=== PATIENT | female | born 1995 | race Caucasian/White ===

== ENCOUNTER 2018-07-11 09:29 | Emergency (ER) | payer BC ==
[2018-07-11] MEDS ORDERED: METOCLOPRAMIDE 5 MG/ML 2 ML VIAL IVP STA (10:02)
[2018-07-11] MEDS ORDERED: diphenhydrAMINE 50 MG/ML 1 ML VIAL IVP STA (10:02)
[2018-07-11] MEDS ORDERED: SODIUM CHLORIDE 0.9% 1,000 ML IV STA (10:02)
[2018-07-11] MEDS ORDERED: MORPHINE SULFATE 2 MG/ML SYRINGE IVP STA (10:02)
[2018-07-11 10:40] LABS: Basophils % (A) 0 %; Eosinophils # (A) 0.3 k/uL (0-0.7); Eosinophils % (A) 3 %; HCT 38.8 % (34.0-46.0); HGB 12.9 gm/dL (11.4-16.0); Lymphocytes # (A) 2.1 k/uL (1.0-4.8); Lymphocytes % (A) 20 %; MCHC 33.2 g/dL (31.0-37.0); MCV 81.3 fL (80.0-100.0); Mean Platelet Volume 6.8; Monocytes # (A) 0.6 k/uL (0-1.0); Monocytes % (A) 6 %; Neutrophils # (A) 7.2 k/uL (1.3-7.7); Neutrophils % (A) 70 %; Platelet Count 238 k/uL (150-450); RBC 4.77 m/uL (3.80-5.40); RDW 14.7 % (11.5-15.5); WBC 10.3 k/uL (3.8-10.6)
[2018-07-11 10:54] LABS: ALT 40 U/L (9-52); AST 27 U/L (14-36); Alkaline Phosphatase 67 U/L (38-126); Amylase 39 U/L (30-110); Anion Gap 8 mmol/L; Blood Urea Nitrogen 14 mg/dL (7-17); Calcium 9.6 mg/dL (8.4-10.2); Carbon Dioxide 23 mmol/L (22-30); Chloride 108 mmol/L (98-107); Glucose 86 mg/dL (74-99); Lipase 83 U/L (23-300); Potassium 4.3 mmol/L (3.5-5.1); Sodium 139 mmol/L (137-145); Total Bilirubin 0.3 mg/dL (0.2-1.3); Total Protein 6.8 g/dL (6.3-8.2)
--- NOTE | 2018-07-11 11:36 | ED ---
Abdominal Pain HPI - General Chief Complaint: Abdominal Pain Stated Complaint: 7 WEEKS PREG BACK PAIN AND SPOTTING Time Seen by Provider: 07/11/18 09:48 Source: patient Mode of arrival: wheelchair Limitations: no limitations - History of Present Illness Initial Comments: 22-year-old female patient presents the emergency department today for evaluation of lower abdominal pain and low back pain. Patient states that she has been having some discomfort to the abdomen mostly on the right side over the last week. Patient states when she woke this morning the pain was much more severe. States that she is also having light vaginal spotting. Patient reports that she is approximately 7 weeks . Last menstrual period was May 08. Patient is . Patient states she has been having a lot of nausea with this . She denies any hematuria, dysuria, urinary frequency, urinary urgency. Patient reports normal bowel movements. Patient denies any recent rash, fever, chills, shortness breath, chest pain, numbness, tingling, dizziness, weakness, headache, visual changes, or any other complaints. - Related Data Home Medications Medication Instructions Recorded Confirmed Nitrofurantoin Monohyd/M-Cryst 100 mg PO Q12HR 03/06/18 03/06/18 [Macrobid] Previous Rx's Medication Instructions Recorded Ibuprofen [Motrin] 600 mg PO Q6HR PRN #40 day 03/06/18 Ondansetron Odt [Zofran ODT] 4 mg PO Q8HR PRN #20 tab 03/06/18 Metoclopramide [Reglan] 10 mg PO Q8H PRN #10 tab 07/11/18 Allergies Allergy/AdvReac Type Severity Reaction Status Date / Time amoxicillin AdvReac Vomiting Verified 07/11/18 09:32 Review of Systems ROS Statement: Those systems with pertinent positive or pertinent negative responses have been documented in the HPI. ROS Other: All systems not noted in ROS Statement are negative. Past Medical History Additional Past Medical History / Comment(s): IBS, gastritis, hernia History of Any Multi-Drug Resistant Organisms: C-DIFF Date of last positivie culture/infection: 2016 Additional Past Surgical History / Comment(s): Ureter tube surgery Past Psychological History: Anxiety, Depression Smoking Status: Never smoker Past Alcohol Use History: None Reported, Occasional Past Drug Use History: None Reported, Marijuana General Exam Limitations: no limitations General appearance: alert, in no apparent distress, other (This is a well- developed, well-nourished adult female patient in no acute distress. Vital signs upon presentation are temperature 98.0F, pulse 57, respirations 18, blood pressure 115/62, pulse ox 98% on room air.) Eye exam: Present: normal appearance, PERRL, EOMI. Absent: scleral icterus, conjunctival injection, periorbital swelling ENT exam: Present: normal exam, normal oropharynx, mucous membranes moist Respiratory exam: Present: normal lung sounds bilaterally. Absent: respiratory distress, wheezes, rales, rhonchi, stridor Cardiovascular Exam: Present: regular rate, normal rhythm, normal heart sounds. Absent: systolic murmur, diastolic murmur, rubs, gallop, clicks GI/Abdominal exam: Present: soft, tenderness (Suprapubic tenderness), normal bowel sounds. Absent: distended, guarding, rebound, rigid Back exam: Present: normal inspection. Absent: CVA tenderness (R), CVA tenderness (L) Neurological exam: Present: alert, oriented X3, CN II-XII intact Psychiatric exam: Present: normal affect, normal mood Skin exam: Present: warm, dry, intact, normal color. Absent: rash Course Vital Signs 07/11/18 07/11/18 09:33 13:30 Temperature 98.0 F 98.0 F Pulse Rate 57 L 69 Respiratory 18 18 Rate Blood Pressure 115/62 113/65 O2 Sat by Pulse 98 99 Oximetry Medical Decision Making - Medical Decision Making 22-year-old female patient presented to the emergency department today for evaluation of lower abdominal and low back pain. Patient reported being approximately 7 weeks with her first . Patient also reported light spotting for the last week. Physical examination did reveal some suprapubic abdominal tenderness. No CVA tenderness. Ultrasound was obtained and showed a viable intrauterine gestation measuring 8 weeks 2 days with a heart rate of 168. HCG level was over 155,000. ABO/Rh was O+. On ultrasound there was evidence of possible fibroid in the fundus of the uterus. I did discuss all findings with the patient. We did discuss threatened as a possible cause for her symptoms. Patient is visiting [facility] from [place] and does have an appointment with her [employer] on 07/21/2018. She is instructed to increase fluids. She is also has been having a lot of nausea and vomiting with this so we did give her prescription for Reglan. Return parameters were discussed in detail. She verbalizes understanding and agrees with this plan. - Lab Data Result diagrams: 07/11/18 10:28 07/11/18 10:28 Lab Results 07/11/18 07/11/18 07/11/18 Range/Units 10:28 10:28 10:28 WBC 10.3 (3.8-10.6) k/uL RBC 4.77 (3.80-5.40) m/uL Hgb 12.9 (11.4-16.0) gm/dL Hct 38.8 (34.0-46.0) % MCV 81.3 (80.0-100.0) fL MCH 27.0 (25.0-35.0) pg MCHC 33.2 (31.0-37.0) g/dL RDW 14.7 (11.5-15.5) % Plt Count 238 (150-450) k/uL Neutrophils % 70 % Lymphocytes % 20 % Monocytes % 6 % Eosinophils % 3 % Basophils % 0 % Neutrophils # 7.2 (1.3-7.7) k/uL Lymphocytes # 2.1 (1.0-4.8) k/uL Monocytes # 0.6 (0-1.0) k/uL Eosinophils # 0.3 (0-0.7) k/uL Basophils # 0.0 (0-0.2) k/uL Sodium 139 (137-145) mmol/L Potassium 4.3 (3.5-5.1) mmol/L Chloride 108 H (98-107) mmol/L Carbon Dioxide 23 (22-30) mmol/L Anion Gap 8 mmol/L BUN 14 (7-17) mg/dL Creatinine 0.50 L (0.52-1.04) mg/dL Est GFR (CKD-EPI)AfAm >90 (>60 ml/min/1.73 sqM) Est GFR (CKD-EPI)NonAf >90 (>60 ml/min/1.73 sqM) Glucose 86 (74-99) mg/dL Calcium 9.6 (8.4-10.2) mg/dL Total Bilirubin 0.3 (0.2-1.3) mg/dL AST 27 (14-36) U/L ALT 40 (9-52) U/L Alkaline Phosphatase 67 (38-126) U/L Total Protein 6.8 (6.3-8.2) g/dL Albumin 4.0 (3.5-5.0) g/dL Amylase 39 (30-110) U/L Lipase 83 (23-300) U/L HCG, Quant 358620.0 mIU/mL Urine Color Urine Appearance (Clear) Urine pH (5.0-8.0) Ur Specific [place] (1.001-1.035) Urine Protein (Negative) Urine Glucose (UA) (Negative) Urine Ketones (Negative) Urine Blood (Negative) Urine Nitrite (Negative) Urine Bilirubin (Negative) Urine Urobilinogen (<2.0) mg/dL Ur Leukocyte Esterase (Negative) Blood Type O Positive Blood Type Recheck [facility] ONLY 07/11/18 Range/Units 11:52 WBC (3.8-10.6) k/uL RBC (3.80-5.40) m/uL Hgb (11.4-16.0) gm/dL Hct (34.0-46.0) % MCV (80.0-100.0) fL MCH (25.0-35.0) pg MCHC (31.0-37.0) g/dL RDW (11.5-15.5) % Plt Count (150-450) k/uL Neutrophils % % Lymphocytes % % Monocytes % % Eosinophils % % Basophils % % Neutrophils # (1.3-7.7) k/uL Lymphocytes # (1.0-4.8) k/uL Monocytes # (0-1.0) k/uL Eosinophils # (0-0.7) k/uL Basophils # (0-0.2) k/uL Sodium (137-145) mmol/L Potassium (3.5-5.1) mmol/L Chloride (98-107) mmol/L Carbon Dioxide (22-30) mmol/L Anion Gap mmol/L BUN (7-17) mg/dL Creatinine (0.52-1.04) mg/dL Est GFR (CKD-EPI)AfAm (>60 ml/min/1.73 sqM) Est GFR (CKD-EPI)NonAf (>60 ml/min/1.73 sqM) Glucose (74-99) mg/dL Calcium (8.4-10.2) mg/dL Total Bilirubin (0.2-1.3) mg/dL AST (14-36) U/L ALT (9-52) U/L Alkaline Phosphatase (38-126) U/L Total Protein (6.3-8.2) g/dL Albumin (3.5-5.0) g/dL Amylase (30-110) U/L Lipase (23-300) U/L HCG, Quant mIU/mL Urine Color Yellow Urine Appearance Clear (Clear) Urine pH 5.5 (5.0-8.0) Ur Specific [place] 1.019 (1.001-1.035) Urine Protein Negative (Negative) Urine Glucose (UA) Negative (Negative) Urine Ketones Negative (Negative) Urine Blood Negative (Negative) Urine Nitrite Negative (Negative) Urine Bilirubin Negative (Negative) Urine Urobilinogen <2.0 (<2.0) mg/dL Ur Leukocyte Esterase Negative (Negative) Blood Type Blood Type Recheck - Radiology Data Radiology results: report reviewed, image reviewed Ultrasound of the fetus was obtained. Impression by Dr. Newsome shows viable intrauterine gestation with a gestational age of 8 weeks 3 days estimated date of confinement based on this exam is 02/17/2019. The superior aspect of the uterus is heterogenous. Cannot exclude a fibroid. Heart rate was 168. Disposition Clinical Impression: Threatened miscarriage, Abdominal pain in , Uterine fibroid Disposition: HOME SELF-CARE Condition: Good Instructions: Threatened Miscarriage (ED), Nausea and Vomiting in (ED ), Uterine Fibroids (ED), Abdominal Pain in (ED) Additional Instructions: Increase fluids. Follow-up with your [employer] for recheck as soon as possible. Return to the emergency department immediately for any new, worsening, or concerning symptoms. Prescriptions: Metoclopramide [Reglan] 10 mg PO Q8H PRN #10 tab PRN Reason: Vomiting Is patient prescribed a controlled substance at d/c from ED?: No Referrals: Lydia Martin DO [Primary Care Provider] - 1-2 days Time of Disposition: 13:18
--- NOTE | 2018-07-11 11:41 | US ---
EXAMINATION TYPE: Transabdominal DATE OF EXAM: 02/24/18 COMPARISON: NONE CLINICAL HISTORY: Pain. Pelvic pain, back pain, dark brown spotting for 1 week EXAM PERFORMED: Transabdominal (TA) EXAM MEASUREMENTS: GESTATIONAL AGE / DATING Physician Established: Not yet established Dates by LMP: (9 weeks/1 days) EDC: 02/12/19 Dates by First Scan: No previous this is first scan Dates by Current Scan for: (8 weeks/3 days) EDC: 02/17/19 MATERNAL ANATOMY Uterus: 9.8 x 6.2 x 7.8cm Right Ovary: 2.6 x 1.3 x 1.2cm Left Ovary: 3.9 x 2.4 x 2.6cm Post CDS / Adnexa: appears wnl Presence of free fluid: no Presence of corpus luteal cyst: cystic areas left ovary, largest = 1.7 x 1.5 x 1.9cm GESTATION / SURVEY CRL: 1.9cm (8 weeks/3 days) Yolk Sac (normal less than 6mm): 0.3cm Heart Rate: 163 bpm Rhythm: Normal IUP: Viable IUP Date of LMP: 05/08/18 Beta HcG (if available): Not available at this time Single viable IUP 8wks/3days with MEDINA of 02/17/19. Cystic areas left ovary. Bulky, heterogeneous righ t fundus of uterus, superior to gestational sac. IMPRESSION: VIABLE UTERINE GESTATION WITH A GESTATIONAL AGE OF 8 WEEKS 3 DAYS +/- 5 DAYS. ESTIMATED DATE OF CONFI NEMENT BASED ON THIS EXAMINATION IS 02/17/2019. THE SUPERIOR ASPECT OF THE UTERUS IS HETEROGENOUS. I COULD NOT EXCLUDE A FIBROID.
[2018-07-11 12:08] LABS: Appearance,Urine Clear (Clear); Bilirubin,Urine Negative (Negative); Blood,Urine Negative (Negative); Color,Urine Yellow; Glucose,Urine (UA) Negative (Negative); Ketones,Urine Negative (Negative); Leukocyte Esterase,Urine Negative (Negative); Nitrite,Urine Negative (Negative); PH, Urine 5.5 (5.0-8.0); Protein,Urine Negative (Negative); Specific Gravity,Urine 1.019 (1.001-1.035); Urobilinogen,Urine <2.0 mg/dL (<2.0)
[2018-07-11 13:39] VITALS: BP 111/62; PULSE 68; RESP 17; TEMP 98.5
== END 2018-07-11 13:46 | disposition home or self-care (01) ==
LOC: EC 09:29
DX: O20.0 Threatened abortion (principal); O34.11 Maternal care for benign tumor of corpus uteri, first trimester; D25.9 Leiomyoma of uterus, unspecified; O99.89 Other specified diseases and conditions complicating pregnancy, childbirth and the puerperium; R11.0 Nausea; Z67.40 Type O blood, Rh positive; Z88.0 Allergy status to penicillin; Z3A.08 8 weeks gestation of pregnancy
CPT/HCPCS: 36415; 86900; 86901; 80053; 82150; 83690; 85025; 81003; 84702; 76801; 99284; 96374; 96375 ×2; 96361; J1200; J2765; J2270

== ENCOUNTER 2019-01-16 22:22 | Outpatient (CLI) | payer BC ==
[2019-01-16 23:08] VITALS: BP 117/63; PULSE 103; RESP 16; TEMP 97.2
--- NOTE | 2019-03-16 09:34 | P.MSEPDOC ---
Presenting Problems - Arrival Data Date of Arrival on Unit: 01/16/19 Time of Arrival on Unit: 22:22 Mode of Transport: Wheelchair - Complaint OB-Reason for Admission/Chief Complaint: Pain Comment: Vaginal pain that comes and goes Medical History - Information : 1 Para: 0 Term: 0 : 0 Abortions: Spontaneous or Elective: 0 Number of Living Children: 0 - Gestational Age Gestational Age by MEDINA (wks/days): 36 Weeks and 1 Days Review of Systems - Review of Systems Constitutional: No problems Breast: No problems ENT: No problems Cardiovascular: No problems Respiratory: No problems Gastrointestinal: No problems Genitourinary: No problems Musculoskeletal: No problems Neurological: No problems Skin: No problems Vital Signs - Temperature Temperature: 97.2 F Temperature Source: Temporal Artery Scan - Pulse Right Brachial Pulse Rate: 103 Pulse Assessment Method: Automatic Cuff - Respirations Respiratory Rate: 16 Oxygen Delivery Method: Room Air O2 Sat by Pulse Oximetry: 99 - Blood Pressure Right Arm Blood Pressure: 117/63 Blood Pressure Mean: 81 Blood Pressure Source: Automatic Cuff Medical Screen Scoring (Pre) - Cervical Exam Dilation: 0 cm = 0 Membranes: Intact - Uterine Contractions Frequency: N/A Duration: N/A Intensity: N/A - Maternal Vital Signs Maternal Temperature: N/A Maternal Blood Pressure: N/A Signs of Preeclampsia: N/A Maternal Respirations: N/A - Pain Assessment Pain Location and Character: Perineal Pain Scale Used: Numeric (1 - 10) Pain Intensity: 8 Pain Description: *Acute, Aching Pain Frequency: Intermittent Pain Duration Units: Minutes Pain Behavior: Vocalization Pain Aggravating Factors: None - Maternal Trauma Maternal Trauma: N/A - Assessment Baseline FHR: 135 Heart Rate - NICHD Category: Category I (Normal) = 0 NST: Reactive Position: N/A Station: N/A - Total Score Total Score (Pre): 0 - Level of Risk Level of Risk: Low (0-5) Physician Notification (Pre) - Physician Notified Physician Notified Date: 01/16/19 Physician Notified Time: 22:56 Physician/Practitioner Notifed:: Dr. Fall Spoke With: Dr. Fall New Order Received: Yes - Notification Comment Comment: Dr. Fall given report on pt in tr. Pt c/o. VS wnl. Reactive NST. vag exam of closed/thick/high. No contractions noted. Orders recieved to recheck vag exam after 1 hr, if no change to d/c pt to home and instruct to rest. Disposition - Disposition OB Disposition: Discharge to home Discharge Date: 01/17/19 Discharge Time: 23:50 I agree with the RN Medical Screening Exam: No Physician's MSE Comment: Incomplete documentation Risk & Benefit of care provided described in d/c instruction: No Diagnosis: PAIN, UNSPECIFIED
== END 2019-01-16 23:50 | disposition home or self-care (01) ==
LOC: FBPOP 22:22
PROVIDERS: ATTEND Obstetrics & Gynecology
DX: O99.89 Other specified diseases and conditions complicating pregnancy, childbirth and the puerperium (principal); R10.2 Pelvic and perineal pain; Z3A.36 36 weeks gestation of pregnancy
CPT/HCPCS: 59025; 99213

== ENCOUNTER 2019-01-27 01:38 | Outpatient (CLI) | payer BC ==
[2019-01-27 02:37] VITALS: BP 135/72; PULSE 82; RESP 18; TEMP 97
--- NOTE | 2019-02-23 09:29 | P.MSEPDOC ---
Presenting Problems - Arrival Data Date of Arrival on Unit: 01/27/19 Time of Arrival on Unit: 01:38 Mode of Transport: EMS - Complaint OB-Reason for Admission/Chief Complaint: Possible Onset of Labor Comment: onset 2200 on 01/26. contractions 3-10 min apart Medical History - Information : 1 Para: 0 Term: 0 : 0 Abortions: Spontaneous or Elective: 0 Number of Living Children: 0 - Gestational Age Gestational Age by MEDINA (wks/days): 37 Weeks and 5 Days Review of Systems - Review of Systems Constitutional: No problems Breast: No problems ENT: No problems Cardiovascular: No problems Respiratory: No problems Gastrointestinal: No problems Genitourinary: No problems Musculoskeletal: No problems Neurological: No problems Skin: No problems Vital Signs - Temperature Temperature: 97.0 F Temperature Source: Temporal Artery Scan - Pulse Right Pulse Oximetery Pulse Rate: 82 Pulse Assessment Method: Automatic Cuff - Respirations Respiratory Rate: 18 Oxygen Delivery Method: Room Air O2 Sat by Pulse Oximetry: 98 - Blood Pressure Right Arm Blood Pressure: 135/72 Blood Pressure Mean: 93 Blood Pressure Source: Automatic Cuff Medical Screen Scoring (Pre) - Cervical Exam Membranes: Intact - Uterine Contractions Frequency: > 5 minutes apart = 1 Duration: N/A Intensity: N/A - Maternal Vital Signs Maternal Temperature: N/A Maternal Blood Pressure: N/A Signs of Preeclampsia: N/A Maternal Respirations: N/A - Pain Assessment Pain Location and Character: Abdomen Pain Scale Used: Numeric (1 - 10) Pain Intensity: 9 Pain Management Goal: 2 Pain Description: *Acute, Cramping Pain Radiation Location: none Pain Frequency: Intermittent Pain Duration: 4 Pain Duration Units: Hours Pain Behavior: Vocalization Effects of Pain: none Pain Aggravating Factors: None Pharmacological Interventions: Discuss Pain Med Options Non-Pharmacological Interventions: Reduce Environmental Stimuli - Maternal Trauma Maternal Trauma: N/A - Assessment Baseline FHR: 140 Heart Rate - NICHD Category: Category I (Normal) = 0 NST: Reactive Position: N/A Station: N/A - Total Score Total Score (Pre): 1 - Level of Risk Level of Risk: Low (0-5) Medical Screen Scoring (Post) - Cervical Exam Dilation: 0 cm = 0 Membranes: Intact - Uterine Contractions Frequency: > 5 minutes apart = 1 Duration: N/A Intensity: N/A - Maternal Vital Signs Maternal Temperature: N/A Maternal Blood Pressure: N/A Signs of Preeclampsia: N/A Maternal Respirations: N/A - Maternal Trauma Maternal Trauma: N/A - Assessment Heart Rate: 140 Heart Rate - NICHD Category: Category I (Normal) = 0 NST: Reactive Position: N/A Station: N/A - Total Score Total Score (Post): 1 - Post Treatment Level of Risk Post Treatment Level of Risk: Low (0-5) Physician Notification (Post) - Physician Notified Physician Notified Date: 01/27/19 Physician Notified Time: 02:16 Physician/Practitioner Notified:: Juan David Spoke With: Juan David New Order Received: Yes - Notification Comment Comment: Inocente Wilkes spoke with Dr Fall, order to recheck cervix after 1 hour and if the same, pt may go home. Disposition - Disposition OB Disposition: Discharge to home Discharge Date: 01/27/19 Discharge Time: 02:53 I agree with the RN Medical Screening Exam: Yes Risk & Benefit of care provided described in d/c instruction: No Diagnosis: FALSE LABOR, UNSPECIFIED
== END 2019-01-27 02:53 | disposition home or self-care (01) ==
LOC: FBPOP 01:38
PROVIDERS: ATTEND Obstetrics & Gynecology
DX: O47.1 False labor at or after 37 completed weeks of gestation (principal); Z3A.37 37 weeks gestation of pregnancy
CPT/HCPCS: 59025; 99213

== ENCOUNTER 2019-02-12 11:00 | Inpatient (IN) | payer BC, OTHER ==
[2019-02-22] MEDS ORDERED: ZOLPIDEM 5 MG TAB PO PRN (17:31)
[2019-02-22] MEDS ORDERED: DINOPROSTONE 10 MG INSERT.ER VAGINAL ONE (17:31)
[2019-02-22] MEDS ORDERED: BUTORPHANOL 1 MG/ML 1 ML VIAL IV PRN ×2 (17:31→17:52)
[2019-02-22 18:40] VITALS: BMI 48.4
[2019-02-22 18:41] LABS: Basophils % (A) 0 %; Eosinophils # (A) 0.1 k/uL (0-0.7); Eosinophils % (A) 1 %; HGB 11.3 gm/dL (11.4-16.0); Lymphocytes # (A) 1.9 k/uL (1.0-4.8); Lymphocytes % (A) 17 %; MCH 24.8 pg (25.0-35.0); MCHC 32.4 g/dL (31.0-37.0); MCV 76.7 fL (80.0-100.0); Mean Platelet Volume 7.2; Microcytosis Slight; Monocytes # (A) 0.6 k/uL (0-1.0); Monocytes % (A) 5 %; Neutrophils # (A) 8.2 k/uL (1.3-7.7); Neutrophils % (A) 75 %; Platelet Count 264 k/uL (150-450); RBC 4.56 m/uL (3.80-5.40); RDW 14.7 % (11.5-15.5); WBC 10.9 k/uL (3.8-10.6)
[2019-02-23] MEDS ORDERED: ceFAZolin IN SWFI 2 GM/20 ML SYRINGE IVP ONE (09:46)
[2019-02-23] MEDS ORDERED: CITRIC ACID-SODIUM CITRATE 15 ML CUP PO ONE (09:46)
[2019-02-23] MEDS: LACTATED RINGERS 1,000 ML IV SCH ×2 (10:00→20:22)
[2019-02-23] MEDS ORDERED: ceFAZolin 3 GM in SODIUM CHLORIDE 0.9% 100 ML IVPB ONE (10:00)
[2019-02-23] MEDS ORDERED: NALBUPHINE 10 MG/ML (1 ML AMP) ONE (11:03)
[2019-02-23] MEDS ORDERED: ONDANSETRON 4 MG/2 ML VIAL ONE (11:03)
[2019-02-23] MEDS ORDERED: MORPHINE SULFATE (PF) 0.3 MG/0.3 ML SYR ONE (11:03)
[2019-02-23] MEDS ORDERED: OXYTOCIN 10 UNIT/ML 1 ML VIAL ONE (11:03)
[2019-02-23] MEDS ORDERED: diphenhydrAMINE 25 MG CAP PO PRN (11:59)
[2019-02-23] MEDS ORDERED: NALOXONE 0.4 MG/ML 1 ML VIAL IV PRN ×2 (11:59→12:01)
[2019-02-23] MEDS ORDERED: ONDANSETRON 4 MG/2 ML VIAL IVP PRN (11:59)
[2019-02-23] MEDS ORDERED: diphenhydrAMINE 50 MG CAP PO PRN (11:59)
[2019-02-23] MEDS ORDERED: ACETAMINOPHEN TAB 325 MG TAB PO PRN (11:59)
[2019-02-23] MEDS ORDERED: diphenhydrAMINE 50 MG/ML 1 ML VIAL IVP PRN ×2 (11:59)
[2019-02-23] MEDS ORDERED: METOCLOPRAMIDE 5 MG/ML 2 ML VIAL IVP PRN (11:59)
[2019-02-23] MEDS ORDERED: ZOLPIDEM 5 MG TAB PO PRN (11:59)
[2019-02-23] MEDS ORDERED: OXYTOCIN 20 UNITS/1000 ML NS 1,000 ML IV SCH (12:00)
[2019-02-23] MEDS ORDERED: NALBUPHINE 10 MG/ML (1 ML AMP) IV PRN (12:01)
[2019-02-23] MEDS ORDERED: HYDROmorphone 0.5 MG/0.5 ML SYRINGE IVP PRN (12:01)
[2019-02-23] MEDS ORDERED: KETOROLAC 30 MG/ML 1 ML VIAL IVP PRN (12:01)
--- NOTE | 2019-02-23 12:02 | P.HPOB ---
History of Present Illness H&P Date: 02/22/19 Chief Complaint: IUP @ 41 4/7 weeks This is a very pleasant 23-year-old 2 para 0010 at 41-4/7 weeks that presents to labor and delivery for induction of labor secondary to postdates. Patient denies contractions loss of fluid or vaginal bleeding. She does note good movement. Patient was seen in the office today with a normal BRYCE and nonstress test. Patient has received routine care with myself and has been uncomplicated. On bloodwork should a blood type of O+, rubella immune, hepatitis B surface antigen negative, HIV negative, RPR nonreactive, GBS negative. Review of Systems Constitutional: Denies chills, Denies fatigue, Denies fever Ears, nose, mouth and throat: Denies headache Cardiovascular: Reports leg edema Respiratory: Denies cough, Denies dyspnea Gastrointestinal: Denies constipation, Denies diarrhea, Denies nausea, Denies vomiting Genitourinary: Reports Past Medical History Additional Past Medical History / Comment(s): IBS, gastritis, hernia History of Any Multi-Drug Resistant Organisms: C-DIFF Date of last positivie culture/infection: 2016 MDRO Source:: antibotics Additional Past Surgical History / Comment(s): Ureter tube surgery Smoking Status: Never smoker - Past Family History Mother Family Medical History: Asthma, Hypertension Medications and Allergies Home Medications Medication Instructions Recorded Confirmed Type Acetaminophen Tab [Tylenol Tab] 325 mg PO Q4H 01/16/19 02/22/19 History Pnv,Calcium 72/Iron/Folic Acid 1 tab PO DAILY 01/16/19 02/22/19 History [ Plus Tablet] Allergies Allergy/AdvReac Type Severity Reaction Status Date / Time No Known Allergies Allergy Verified 01/27/19 02:06 Exam Osteopathic Statement: *. No significant issues noted on an osteopathic structural exam other than those noted in the History and Physical/Consult. Intake and Output 02/22/19 02/22/19 02/22/19 06:59 14:59 22:59 Other: Weight 127.913 kg In general this is a well-nourished well-developed female in no acute distress. She is noted to have nonlabored breathing and her heart was noted have regular rate and rhythm. Her abdomen is gravid and appropriate for gestational age. On cervical exam she is closed/thick/high. And Cervidil is placed. Patient has noted category 1 heart tones. Results Result Diagrams: 02/22/19 18:10 Assessment and Plan (1) Term Current Visit: Yes Status: Acute Code(s): Z34.80 - ENCOUNTER FOR SUPRVSN OF NORMAL , UNSP TRIMESTER SNOMED Code(s): 60606791 (2) Post-dates Current Visit: Yes Status: Acute Code(s): O48.0 - POST-TERM SNOMED Code(s): 88485743 Plan: Patient is admitted for Cervidil induction of labor. Patient is counseled on unfavorable cervix/Whiteside score and she states understanding. She states if her cervix has not changed by the morning she does elect primary for failed induction. was discussed with the patient in detail in the office will await ripening this evening and reevaluate in the morning.
--- NOTE | 2019-02-23 12:05 | P.OP ---
Date of Procedure: 02/23/19 Preoperative Diagnosis: IUP at 41-5/7 weeks, failed induction, desires elective primary Postoperative Diagnosis: Same Procedure(s) Performed: Primary low transverse section Anesthesia: spinal Surgeon: Tabatha Pimentel Appointment Manager #1: Sujey Fall Estimated Blood Loss (ml): 600 IV fluids (ml): 1,300 Urine output (ml): 300 Pathology: other (Placenta) Condition: stable Disposition: observation Indications for Procedure: Postdates with no cervical change after Cervidil, patient elects primary Operative Findings: Arcuate uterus, normal fallopian tubes, normal ovaries bilaterally Description of Procedure: The patient was prepped and draped in the usual fashion after spinal anesthesia was administered by the anesthesia department. A Pfannenstiel incision was made and extended of the abdominal cavity without difficulty. The bladder peritoneum was elevated and incised and reflected distally. A 2 cm incision was made in the transverse plane of the lower uterine segment to enter the uterus at which time clear fluid was noted. The incision was extended in both directions using the bandage scissors. The head was encountered within the field and delivered up and through the incision where the nose and mouth were thoroughly suctioned. Remainder of the infant was delivered onto the surgical field where the cord was doubly clamped, cut, and the was passed for resuscitative measures with weight and Apgars 9-10 at one and 5 minutes respectively. weight noted to be 8 lbs. 9 oz. The placenta was delivered manually, intact, and was grossly normal with a grossly normal three-vessel cord. The uterus was exteriorized and the interior cavity of the uterus swept of any remaining placental and membranous fragments with a laparotomy sponge. The margins of the incision were grasped with allis clamps and the incision closed in 2 layers. First layer was a running locking layer of 0 vicryl from margin to margin followed by a second layer of imbricating 0 vicryl from margin to margin. Any small points of bleeding were then made hemostatic with the Bovie. Once hemostasis was achieved, the posterior cul-de-sac was suctioned with a guard and the uterine and ovarian findings are as noted above. The uterus was replaced within the abdominal cavity and the gutters swept of any remaining blood fluid or clot. The incision was again reexamined and hemostasis was noted to be excellent. Any small point of bleeding were made hemostatic with the Bovie. Once hemostasis was achieved the parietal peritoneum was loosely reapproximated. The layer of muscles were examined and made hemostatic with the Bovie. Attention was then turned to the fascia which was closed with 2 running stitches of 0 Vicryl proceeding from the lateral margins to the midpoint. The subcutaneous tissues were irrigated, made hemostatic with the Bovie, and reapproximated with a running stitch of 30 Vicryl. The skin was reapproximated with 4-0 vicryl in a subarticular fashion. Estimated blood loss for the case was approximately 600 mL. All sponge instrument and needle counts are correct. There were no complications. The patient tolerated the procedure well and proceeded to the recovery room in stable condition. Both mother and are resting comfortably in recovery.
[2019-02-23] MEDS ORDERED: HYDROmorphone 1 MG/ML 1 ML SYRINGE IVP PRN (12:16)
[2019-02-23] MEDS ORDERED: IBUPROFEN IV 800 MG in SODIUM CHLORIDE 0.9% 250 ML IV ONE (13:00)
[2019-02-23] MEDS: SENNOSIDES-DOCUSATE SODIUM 1 EACH TAB PO SCH (20:22)
[2019-02-23] MEDS: IBUPROFEN 600 MG TAB PO PRN (22:08)
[2019-02-24] MEDS: IBUPROFEN 600 MG TAB PO PRN ×3 (03:44→21:48)
[2019-02-24] MEDS: LACTATED RINGERS 1,000 ML IV SCH (04:04)
[2019-02-24 08:04] LABS: Basophils % (A) 0 %; Eosinophils # (A) 0.1 k/uL (0-0.7); Eosinophils % (A) 1 %; Hypochromasia Slight; Lymphocytes # (A) 1.6 k/uL (1.0-4.8); Lymphocytes % (A) 14 %; MCH 23.9 pg (25.0-35.0); MCHC 30.9 g/dL (31.0-37.0); MCV 77.5 fL (80.0-100.0); Mean Platelet Volume 8.9; Monocytes # (A) 0.6 k/uL (0-1.0); Monocytes % (A) 5 %; Neutrophils % (A) 79 %; Platelet Count 183 k/uL (150-450); RBC 3.48 m/uL (3.80-5.40); RDW 14.6 % (11.5-15.5); WBC 11.5 k/uL (3.8-10.6)
[2019-02-24 08:11] LABS: HGB 8.3 gm/dL (11.4-16.0)
[2019-02-24] MEDS: SENNOSIDES-DOCUSATE SODIUM 1 EACH TAB PO SCH ×2 (08:19→20:03)
[2019-02-24] MEDS: PRENATAL VIT-IRON-FOLIC ACID 1 EACH CAP PO SCH (08:41)
--- NOTE | 2019-02-24 08:41 | P.PNOBGPC ---
Subjective - Subjective Principal diagnosis: Postop day 1 Interval history: Patient is complaining of pain this morning. We will start oral [place] for pain relief. Patient had Delatorre removed we are awaiting spontaneous void She is tolerating clear liquids without nausea or vomiting. Patient reports: Reports appetite normal, Reports pain poorly controlled, Reports ambulating normally [place]: doing well Objective - Vital Signs Latest vital signs: Vital Signs Temp Pulse Resp BP Pulse Ox 02/24/19 08:33 97.4 F L 70 16 121/70 02/24/19 06:00 16 02/24/19 05:00 98 02/24/19 04:00 98.1 F 87 16 129/77 98 02/24/19 02:00 16 02/24/19 01:00 97 02/24/19 00:00 98 F 100 16 103/50 02/23/19 22:00 16 02/23/19 21:00 99 02/23/19 20:00 97.6 F 87 16 104/54 99 02/23/19 17:53 18 02/23/19 17:01 96 02/23/19 16:09 97.5 F L 67 18 100/50 02/23/19 16:00 97.5 F L 67 20 100/50 02/23/19 14:13 72 20 111/55 97 02/23/19 13:43 97.4 F L 58 L 18 101/59 97 02/23/19 13:14 78 20 110/69 98 02/23/19 13:01 70 20 92/54 98 02/23/19 12:59 76 20 104/56 98 02/23/19 12:44 59 L 20 102/52 97 02/23/19 12:29 70 20 104/51 97 02/23/19 12:28 97 02/23/19 12:24 97.6 F 75 18 104/52 97 02/23/19 12:14 97.6 F 75 18 104/52 97 Intake and Output 02/23/19 02/24/19 02/24/19 22:59 06:59 14:59 Intake Total 50 100 Output Total 399 168 9282 Balance -400 -350 -1200 Intake: Oral 50 100 Output: Urine 094 693 2445 Straight 450 Uretheral (Delatorre) 450 - Exam Extremities: Present: normal, edema Abdomen: Present: normal appearance, soft Incision: Present: normal, dry, intact Uterus: Present: normal, firm - Labs Labs: Abnormal Lab Results - Last 24 Hours (Table) 02/24/19 Range/Units 07:41 WBC 11.5 H (3.8-10.6) k/uL RBC 3.48 L (3.80-5.40) m/uL Hgb 8.3 L D (11.4-16.0) gm/dL Hct 27.0 L (34.0-46.0) % MCV 77.5 L (80.0-100.0) fL MCH 23.9 L (25.0-35.0) pg MCHC 30.9 L (31.0-37.0) g/dL Neutrophils # 9.0 H (1.3-7.7) k/uL Assessment and Plan (1) Term Current Visit: Yes Status: Acute Code(s): Z34.80 - ENCOUNTER FOR SUPRVSN OF NORMAL , UNSP TRIMESTER SNOMED Code(s): 90971006 (2) Post-dates Current Visit: Yes Status: Acute Code(s): O48.0 - POST-TERM SNOMED Code(s): 81695621 (3) S/P section Current Visit: Yes Status: Acute Code(s): Z98.891 - HISTORY OF UTERINE SCAR FROM PREVIOUS SURGERY SNOMED Code(s): 219481360 Plan: We will start oral pain medications as she received Dilaudid overnight. I do believe that she will get better pain control with oral long-lasting pain medication. We will encourage ambulation this morning. Will advance diet as tolerated.
[2019-02-24] MEDS: HYDROcodone/APAP 5-325MG 1 EACH TAB PO PRN ×4 (08:44→23:51)
[2019-02-25 00:16] VITALS: RESP 16; TEMP 98.3
[2019-02-25] MEDS: LACTATED RINGERS 1,000 ML IV SCH ×4 (01:22→06:53)
[2019-02-25] MEDS: IBUPROFEN 600 MG TAB PO PRN ×2 (03:46→09:45)
[2019-02-25] MEDS: HYDROcodone/APAP 5-325MG 1 EACH TAB PO PRN ×2 (06:17→12:52)
--- NOTE | 2019-02-25 06:42 | P.PN ---
Progress Note - Text Progress Note Date: 02/24/19 Status post spinal with Duramorph Patient evaluated at the bedside without complaints of headaches pruritus or nausea or vomiting Spinal site looks clean dry and intact without any signs of infection Vitals within normal limits Patient progressing normally anesthesia signing off
[2019-02-25] MEDS: SENNOSIDES-DOCUSATE SODIUM 1 EACH TAB PO SCH (07:16)
--- NOTE | 2019-02-25 08:14 | P.DS ---
Providers Date of admission: 02/22/19 17:26 Expected date of discharge: 02/25/19 Attending physician: Tabatha Pimentel Primary care physician: Stated None - Discharge Diagnosis(es) (1) Term Current Visit: Yes Status: Acute (2) Post-dates Current Visit: Yes Status: Acute (3) S/P section Current Visit: Yes Status: Acute Hospital Course: This is a pleasant 23-year-old 2 para 0010 at 41-4/7 weeks that presented to labor and delivery for Cervidil induction secondary to postdates. Patient progressed through the evening made no cervical change and elected primary low-transverse secondary to failed induction. Patient was taken to the operating suite was performed without difficulty for further details on the please see the operative report. Viable female was delivered 8 lbs. 9 oz., Apgars of 9 and 10 at one and 5 minutes respectively. Patient's postoperative course has been essentially uneventful. She did struggle with pain control on postop day 1 but is doing well with oral medications now. Patient is ambulating and voiding without difficulty. She is tolerating a regular diet without nausea or vomiting. She does desire discharge home today. Patient Condition at Discharge: Good Plan - Discharge Summary New Discharge Prescriptions: No Action Acetaminophen Tab [Tylenol Tab] 325 mg PO Q4H Pnv,Calcium 72/Iron/Folic Acid [ Plus Tablet] 1 tab PO DAILY Discharge Medication List Acetaminophen Tab [Tylenol Tab] 325 mg PO Q4H 01/16/19 [History] Pnv,Calcium 72/Iron/Folic Acid [ Plus Tablet] 1 tab PO DAILY 01/16/19 [History] Follow up Appointment(s)/Referral(s): Tabatha Pimentel DO [Doctor of Osteopathic Medicine] - 2 Weeks Patient Instructions/Handouts: (DC), (GEN) Discharge Disposition: HOME SELF-CARE
[2019-02-25] MEDS: PRENATAL VIT-IRON-FOLIC ACID 1 EACH CAP PO SCH (09:45)
[2019-02-25 10:05] VITALS: BP 118/66; PULSE 99
== END 2019-02-25 12:56 | disposition home or self-care (01) | DRG 788 ==
LOC: 4FBP 02-22 17:26
PROVIDERS: ADMIT Obstetrics & Gynecology Obstetrics; ATTEND Obstetrics & Gynecology Obstetrics
PROC: 10907ZC Drainage of Amniotic Fluid, Therapeutic from Products of Conception, Via Natural or Artificial Opening (ICD-10-PCS; principal; 2019-02-22)
PROC: 10D00Z1 Extraction of Products of Conception, Low, Open Approach (ICD-10-PCS; principal; 2019-02-22)
PROC: 3E0P7VZ Introduction of Hormone into Female Reproductive, Via Natural or Artificial Opening (ICD-10-PCS; principal; 2019-02-22)
DX: O48.0 Post-term pregnancy (principal); Z3A.41 41 weeks gestation of pregnancy; O61.0 Failed medical induction of labor; Q51.810 Arcuate uterus; Z37.0 Single live birth; Z82.49 Family history of ischemic heart disease and other diseases of the circulatory system; Z82.5 Family history of asthma and other chronic lower respiratory diseases
CPT/HCPCS: 85025; 86850; 86900; 86901; 88307

== ENCOUNTER 2019-06-23 13:56 | Emergency (ER) | payer BC ==
[2019-06-23] MEDS ORDERED: SODIUM CHLORIDE 0.9% 1,000 ML IV STA (14:29)
[2019-06-23] MEDS ORDERED: ONDANSETRON 4 MG/2 ML VIAL IVP STA ×2 (14:29→16:00)
[2019-06-23] MEDS ORDERED: KETOROLAC 30 MG/ML 1 ML VIAL IVP STA (14:59)
[2019-06-23 15:00] LABS: Anisocytosis Slight; Basophils % (A) 0 %; Eosinophils # (A) 0.3 k/uL (0-0.7); Eosinophils % (A) 3 %; HCT 39.5 % (34.0-46.0); HGB 12.5 gm/dL (11.4-16.0); Lymphocytes # (A) 2.5 k/uL (1.0-4.8); Lymphocytes % (A) 27 %; MCH 22.3 pg (25.0-35.0); MCHC 31.6 g/dL (31.0-37.0); MCV 70.6 fL (80.0-100.0); Mean Platelet Volume 7.2; Microcytosis Marked; Monocytes # (A) 0.5 k/uL (0-1.0); Monocytes % (A) 5 %; Neutrophils # (A) 5.7 k/uL (1.3-7.7); Neutrophils % (A) 62 %; Platelet Count 257 k/uL (150-450); RDW 16.7 % (11.5-15.5); WBC 9.1 k/uL (3.8-10.6)
--- NOTE | 2019-06-23 15:03 | ED ---
Abdominal Pain HPI - General Chief Complaint: Abdominal Pain Stated Complaint: Abd Pain Time Seen by Provider: 06/23/19 14:28 Source: patient, RN notes reviewed Mode of arrival: ambulatory Limitations: no limitations - History of Present Illness Initial Comments: 23-year-old female presents emergency Department chief complaint of right-sided abdominal pain. Patient states started 3 days and has progressively worsened to the point where she cannot tolerated. Patient denies any chance . Patient does admit to a fever. Patient states she has not felt well wants PCP told her she does have a viral upper respiratory infection. Patient states the pain is not localize 7 right lower quadrant she has no dysuria hematuria denies any diarrhea constipation she does admit to some nausea and vomiting. Patient states that she has no history kidney stones no prior bowel surgeries she is 4 months . - Related Data Home Medications Medication Instructions Recorded Confirmed Acetaminophen Tab [Tylenol Tab] 1,000 mg PO Q6HR PRN 06/23/19 06/23/19 Azithromycin 250 mg PO DAILY 06/23/19 06/23/19 Previous Rx's Medication Instructions Recorded Ibuprofen [Motrin] 600 mg PO Q8HR PRN #30 tab 06/23/19 Allergies Allergy/AdvReac Type Severity Reaction Status Date / Time amoxicillin Allergy Unknown Verified 06/23/19 14:31 Review of Systems ROS Statement: Those systems with pertinent positive or pertinent negative responses have been documented in the HPI. ROS Other: All systems not noted in ROS Statement are negative. Past Medical History Additional Past Medical History / Comment(s): IBS, gastritis, hernia History of Any Multi-Drug Resistant Organisms: C-DIFF Date of last positivie culture/infection: 2016 MDRO Source:: antibotics Additional Past Surgical History / Comment(s): Ureter tube surgery Past Anesthesia/Blood Transfusion Reactions: No Reported Reaction Past Psychological History: Anxiety, Depression Smoking Status: Never smoker Past Alcohol Use History: Occasional Past Drug Use History: Marijuana - Past Family History Mother Family Medical History: Asthma, Hypertension General Exam Limitations: no limitations General appearance: alert, in no apparent distress Head exam: Present: atraumatic, normocephalic, normal inspection Eye exam: Present: normal appearance, PERRL, EOMI. Absent: scleral icterus, con junctival injection, periorbital swelling ENT exam: Present: normal exam, mucous membranes moist Neck exam: Present: normal inspection, full ROM. Absent: tenderness, meningismus, lymphadenopathy Respiratory exam: Present: normal lung sounds bilaterally. Absent: respiratory distress, wheezes, rales, rhonchi, stridor Cardiovascular Exam: Present: regular rate, normal rhythm, normal heart sounds. Absent: systolic murmur, diastolic murmur, rubs, gallop, clicks GI/Abdominal exam: Present: soft, tenderness (Moderate right-sided), normal bowel sounds. Absent: distended, guarding, rebound, rigid Back exam: Absent: CVA tenderness (R), CVA tenderness (L) Skin exam: Present: warm, dry, intact, normal color. Absent: rash Course Vital Signs 06/23/19 14:12 Temperature 97.9 F Pulse Rate 89 Respiratory 16 Rate Blood Pressure 126/77 O2 Sat by Pulse 97 Oximetry Medical Decision Making - Medical Decision Making 23-year-old female presents emergency from for right-sided abdominal discomfort. Patient lab CT urinalysis. Patient has evidence of ruptured ovarian cyst on the right along with some enteritis type changes. Patient will be discharged at this time return parameters were discussed. - Lab Data Result diagrams: 06/23/19 14:48 06/23/19 14:48 Lab Results 06/23/19 06/23/19 06/23/19 Range/Units 14:48 14:48 14:48 WBC 9.1 (3.8-10.6) k/uL RBC 5.60 H (3.80-5.40) m/uL Hgb 12.5 (11.4-16.0) gm/dL Hct 39.5 (34.0-46.0) % MCV 70.6 L (80.0-100.0) fL MCH 22.3 L (25.0-35.0) pg MCHC 31.6 (31.0-37.0) g/dL RDW 16.7 H (11.5-15.5) % Plt Count 257 (150-450) k/uL Neutrophils % 62 % Lymphocytes % 27 % Monocytes % 5 % Eosinophils % 3 % Basophils % 0 % Neutrophils # 5.7 (1.3-7.7) k/uL Lymphocytes # 2.5 (1.0-4.8) k/uL Monocytes # 0.5 (0-1.0) k/uL Eosinophils # 0.3 (0-0.7) k/uL Basophils # 0.0 (0-0.2) k/uL Anisocytosis Slight Microcytosis Marked Sodium 143 (137-145) mmol/L Potassium 3.7 (3.5-5.1) mmol/L Chloride 104 (98-107) mmol/L Carbon Dioxide 25 (22-30) mmol/L Anion Gap 14 mmol/L BUN 8 (7-17) mg/dL Creatinine 0.73 (0.52-1.04) mg/dL Est GFR (CKD-EPI)AfAm >90 (>60 ml/min/1.73 sqM) Est GFR (CKD-EPI)NonAf >90 (>60 ml/min/1.73 sqM) Glucose 85 (74-99) mg/dL Calcium 9.6 (8.4-10.2) mg/dL Total Bilirubin 0.9 (0.2-1.3) mg/dL AST 29 (14-36) U/L ALT 30 (9-52) U/L Alkaline Phosphatase 103 (38-126) U/L Total Protein 7.9 (6.3-8.2) g/dL Albumin 4.5 (3.5-5.0) g/dL Lipase 47 (23-300) U/L Urine Color Urine Appearance (Clear) Urine pH (5.0-8.0) Ur Specific [place] (1.001-1.035) Urine Protein (Negative) Urine Glucose (UA) (Negative) Urine Ketones (Negative) Urine Blood (Negative) Urine Nitrite (Negative) Urine Bilirubin (Negative) Urine Urobilinogen (<2.0) mg/dL Ur Leukocyte Esterase (Negative) Urine RBC (0-5) /hpf Urine WBC (0-5) /hpf Ur Squamous Epith Cells (0-4) /hpf Urine Bacteria (None) /hpf Urine Mucus (None) /hpf Urine HCG, Qual Not Detected (Not Detectd) 06/23/19 Range/Units 14:48 WBC (3.8-10.6) k/uL RBC (3.80-5.40) m/uL Hgb (11.4-16.0) gm/dL Hct (34.0-46.0) % MCV (80.0-100.0) fL MCH (25.0-35.0) pg MCHC (31.0-37.0) g/dL RDW (11.5-15.5) % Plt Count (150-450) k/uL Neutrophils % % Lymphocytes % % Monocytes % % Eosinophils % % Basophils % % Neutrophils # (1.3-7.7) k/uL Lymphocytes # (1.0-4.8) k/uL Monocytes # (0-1.0) k/uL Eosinophils # (0-0.7) k/uL Basophils # (0-0.2) k/uL Anisocytosis Microcytosis Sodium (137-145) mmol/L Potassium (3.5-5.1) mmol/L Chloride (98-107) mmol/L Carbon Dioxide (22-30) mmol/L Anion Gap mmol/L BUN (7-17) mg/dL Creatinine (0.52-1.04) mg/dL Est GFR (CKD-EPI)AfAm (>60 ml/min/1.73 sqM) Est GFR (CKD-EPI)NonAf (>60 ml/min/1.73 sqM) Glucose (74-99) mg/dL Calcium (8.4-10.2) mg/dL Total Bilirubin (0.2-1.3) mg/dL AST (14-36) U/L ALT (9-52) U/L Alkaline Phosphatase (38-126) U/L Total Protein (6.3-8.2) g/dL Albumin (3.5-5.0) g/dL Lipase (23-300) U/L Urine Color Yellow Urine Appearance Cloudy H (Clear) Urine pH 5.5 (5.0-8.0) Ur Specific [place] 1.028 (1.001-1.035) Urine Protein 1+ H (Negative) Urine Glucose (UA) Negative (Negative) Urine Ketones 1+ H (Negative) Urine Blood Negative (Negative) Urine Nitrite Negative (Negative) Urine Bilirubin 1+ H (Negative) Urine Urobilinogen 4.0 (<2.0) mg/dL Ur Leukocyte Esterase Moderate H (Negative) Urine RBC 2 (0-5) /hpf Urine WBC 15 H (0-5) /hpf Ur Squamous Epith Cells 29 H (0-4) /hpf Urine Bacteria Few H (None) /hpf Urine Mucus Many H (None) /hpf Urine HCG, Qual (Not Detectd) Disposition Clinical Impression: Ruptured ovarian cyst, Abdominal pain Disposition: HOME SELF-CARE Condition: Stable Instructions (If sedation given, give patient instructions): Ruptured Ovarian Cyst (ED) Additional Instructions: Please return to the Emergency Department if symptoms worsen or any other concerns. Prescriptions: Ibuprofen [Motrin] 600 mg PO Q8HR PRN #30 tab PRN Reason: Pain Is patient prescribed a controlled substance at d/c from ED?: No Referrals: Lydia Martin DO [Primary Care Provider] - 1-2 days Time of Disposition: 15:58
[2019-06-23 15:06] LABS: Appearance,Urine Cloudy (Clear); Bacteria,Urine Few /hpf; Bilirubin,Urine 1+ (Negative); Blood,Urine Negative (Negative); Color,Urine Yellow; Glucose,Urine (UA) Negative (Negative); Ketones,Urine 1+ (Negative); Leukocyte Esterase,Urine Moderate (Negative); Mucus,Urine Many /hpf; Nitrite,Urine Negative (Negative); PH, Urine 5.5 (5.0-8.0); Protein,Urine 1+ (Negative); RBC,Urine 2 /hpf (0-5); Specific Gravity,Urine 1.028 (1.001-1.035); Squamous Epithelial Cell,Urine 29 /hpf (0-4); WBC,Urine 15 /hpf (0-5)
[2019-06-23 15:08] LABS: ALT 30 U/L (9-52); AST 29 U/L (14-36); African American GFR (CKD) >90 (>60 ml/min/1.73 sqM); Albumin 4.5 g/dL (3.5-5.0); Alkaline Phosphatase 103 U/L (38-126); Anion Gap 14 mmol/L; Blood Urea Nitrogen 8 mg/dL (7-17); Calcium 9.6 mg/dL (8.4-10.2); Carbon Dioxide 25 mmol/L (22-30); Chloride 104 mmol/L (98-107); Glucose 85 mg/dL (74-99); Non-African American GFR(CKD) >90 (>60 ml/min/1.73 sqM); Potassium 3.7 mmol/L (3.5-5.1); Sodium 143 mmol/L (137-145); Total Bilirubin 0.9 mg/dL (0.2-1.3); Total Protein 7.9 g/dL (6.3-8.2)
--- NOTE | 2019-06-23 15:45 | CT ---
EXAMINATION TYPE: CT abdomen pelvis w con DATE OF EXAM: 06/23/2019 COMPARISON: 03/06/2018 HISTORY: 23-year-old female RLQ pain, nausea, vomiting TECHNIQUE: Contiguous axial scanning of the abdomen and pelvis following administration of 100 ml Iso misty 300 IV contrast. Delayed images through the kidneys and coronal/sagittal reconstructions perform ed. CT DLP: 1588.9 mGycm Automated exposure control for dose reduction was used. FINDINGS: Heart normal size without pericardial effusion. Lung bases clear without pleural effusion. Tiny hiatal hernia. Focal fat along the anterior falciform ligament. Portal venous system is patent. No biliary ductal dilatation. Gallbladder, adrenal glands, kidneys, and pancreas appear within normal limits. Spleen upper limits of normal in size at 13.6 cm measured on coronal series. No dilated small bowel, free fluid, or free air. Some prominent fluid-filled small bowel loops in the mid and lower abdomen and pelvis. Segments of a normal-appearing appendix are visualized. No significant stool burden. No pericolonic inflammatory change. Uterus is anteverted. Bladder is nondistended. Both ovaries are visualized. There is a peripherally e nhancing cystic lesion measuring 2.0 cm within the right ovary. No abnormal fluid collection in the p mitali or pelvic lymphadenopathy. Bones: No osseous destructive process. IMPRESSION: 1. PROMINENT FLUID-FILLED SMALL BOWEL LOOPS IN THE MID/LOWER ABDOMEN AND PELVIS. CORRELATE FOR ENTERI TIS. 2. A 2.0 CM RECENTLY RUPTURED FOLLICLE OR CORPUS LUTEUM WITHIN THE RIGHT OVARY. 3. SPLEEN UPPER LIMITS OF NORMAL IN SIZE AT 13.6 CM.
[2019-06-23] MEDS ORDERED: MORPHINE SULFATE 4 MG/ML SYRINGE IVP STA (16:00)
[2019-06-23] MEDS ORDERED: ACET/COD 300 MG/30 MG STARTER PACK 6 TAB BTL PO STA (16:00)
[2019-06-23 16:29] VITALS: BP 131/77; PULSE 80; RESP 18; TEMP 98
== END 2019-06-23 16:35 | disposition home or self-care (01) ==
LOC: EC 13:56
DX: N83.201 Unspecified ovarian cyst, right side (principal); Z32.02 Encounter for pregnancy test, result negative; Z88.0 Allergy status to penicillin
CPT/HCPCS: 36415; 74177; 80053; 81001; 81025; 83690; 85025; 87086; 96361; 96374; 96375; 96376; 99284

== ENCOUNTER 2020-05-24 21:27 | Emergency (ER) | payer BC, OTHER ==
[2020-05-24] MEDS ORDERED: SODIUM CHLORIDE 0.9% 1,000 ML IV STA (21:44)
[2020-05-24] MEDS ORDERED: MORPHINE SULFATE 4 MG/ML SYRINGE IV STA ×2 (21:44→23:16)
[2020-05-24] MEDS ORDERED: ONDANSETRON 4 MG/2 ML VIAL IVP STA (21:44)
[2020-05-24 22:04] LABS: Basophils % (A) 0 %; Eosinophils # (A) 0.2 k/uL (0-0.7); Eosinophils % (A) 2 %; HCT 40.9 % (34.0-46.0); HGB 13.5 gm/dL (11.4-16.0); Lymphocytes # (A) 1.7 k/uL (1.0-4.8); Lymphocytes % (A) 13 %; MCH 26.2 pg (25.0-35.0); MCV 79.6 fL (80.0-100.0); Mean Platelet Volume 7.8; Monocytes # (A) 0.3 k/uL (0-1.0); Monocytes % (A) 2 %; Neutrophils # (A) 10.3 k/uL (1.3-7.7); Neutrophils % (A) 82 %; Platelet Count 274 k/uL (150-450); RBC 5.14 m/uL (3.80-5.40); RDW 15.8 % (11.5-15.5); WBC 12.6 k/uL (3.8-10.6)
[2020-05-24] MEDS ORDERED: METOCLOPRAMIDE 5 MG/ML 2 ML VIAL IVP STA (22:25)
--- NOTE | 2020-05-24 22:28 | ED ---
General Adult HPI - General Source: patient, RN notes reviewed, old records reviewed Mode of arrival: wheelchair Limitations: no limitations <Teja Martinez - Last Filed: 05/24/20 23:17> <Les Frias - Last Filed: 05/25/20 01:59> - General Chief complaint: Nausea/Vomiting/Diarrhea Stated complaint: Vomiting, dizziness Time Seen by Provider: 05/24/20 21:35 - History of Present Illness Initial comments: 24 year old female patient with the routine cleaning right lower quadrant pain, nausea and vomiting. Patient reports that this pain began earlier today has been progressing throughout the day. Patient reports that she does have irritable bowel syndrome and she reports that she had similar symptoms on 2 p revious occasions that was secondary to ruptured right-sided ovarian cyst. She denies any other complaints at this time. Systemic: Pt denies fatigue, fever/chills, rash. Pt denies weakness, night sw eats, weight loss. Neuro: Pt denies headache, visual disturbances, syncope or pre-syncope. HEENT: Pt denies ocular discharge or irritation, otalgia, rhinorrhea, pharyngitis or notable lymphadenopathy. Cardiopulmonary: Pt denies chest pain, SOB, heart palpitations, dyspnea on exertion. : Pt denies dysuria, burning w/ urination, frequency/urgency. Denies new onset urinary or bowel incontinence. MSK: Pt denies myalgia, loss of strength or function in extremities. Neuro: Pt denies new onset weakness, paresthesias. (Teja Martinez) - Related Data Previous Rx's Medication Instructions Recorded Ondansetron Odt [Zofran ODT] 4 mg PO Q8HR PRN #10 tab 05/25/20 Allergies Allergy/AdvReac Type Severity Reaction Status Date / Time amoxicillin Allergy Unknown Verified 05/24/20 23:13 Review of Systems ROS Other: All systems not noted in ROS Statement are negative. <Teja Martinez - Last Filed: 05/24/20 23:17> ROS Other: All systems not noted in ROS Statement are negative. <Les Frias - Last Filed: 05/25/20 01:59> ROS Statement: Those systems with pertinent positive or pertinent negative responses have been documented in the HPI. Past Medical History Additional Past Medical History / Comment(s): IBS, gastritis, hernia History of Any Multi-Drug Resistant Organisms: C-DIFF Date of last positivie culture/infection: 2017 MDRO Source:: antibotics Additional Past Surgical History / Comment(s): Ureter tube surgery Past Anesthesia/Blood Transfusion Reactions: No Reported Reaction Past Psychological History: Anxiety, Depression Smoking Status: Never smoker Past Alcohol Use History: Occasional Past Drug Use History: Marijuana - Past Family History Mother Family Medical History: Asthma, Hypertension <Teja Martinez - Last Filed: 05/24/20 23:17> General Exam Limitations: no limitations <Teja Martinez - Last Filed: 05/24/20 23:17> - General Exam Comments Initial Comments: Constitutional: NAD, AOX3, Pt has pleasant affect. HEENT: NC/AT, trachea midline. Posterior pharynx non erythematous, without exudates. External ears appear normal, without discharge. Mucous membranes [facility]. There is no scleral icterus. No pallor noted. Cardiopulmonary: RRR, no murmurs, rubs or gallops, no JVD noted. Lungs CTAB in anterior and posterior mott. No peripheral edema. Abdominal exam: Abdomen soft and non-distended. Abdomen mildly tender to palpation right lower quadrant region.. Bowel sounds active in LLQ. No hepatosplenomegaly. No ecchymosis Neuro: CN II-XII grossly intact. No nuchal rigidity. No raccon eyes, no hager sign, no hemotympanum. No cervical spinal tenderness. MSK: No posterior calf tenderness bilaterally, homans sign negative bilaterally. Posterior tibialis and radial pulse +2 bilaterally. active ROM in upper and lower extremities. (Teja Martinez) Course Vital Signs 05/24/20 05/25/20 21:29 00:22 Temperature 98.3 F 98.1 F Pulse Rate 83 68 Respiratory 18 18 Rate Blood Pressure 117/81 119/63 O2 Sat by Pulse 99 97 Oximetry Medical Decision Making - Lab Data Result diagrams: 05/24/20 21:56 05/24/20 21:56 <Teja Martinez - Last Filed: 05/24/20 23:17> - Lab Data Result diagrams: 05/24/20 21:56 05/24/20 21:56 <Les Frias - Last Filed: 05/25/20 01:59> - Medical Decision Making 24 old female patient presents to ED complaining of right lower quadrant abdominal pain. Began earlier today. Patient will signs are stable, afebrile. Physical exam displayed a right lower quadrant abdominal pain. Laboratory investigations revealed mild leukocytosis mildly elevated lactic acid. Patient is signed out to Dr. Thomas pending CT. (Teja Martinez) - Lab Data Lab Results 05/24/20 05/24/20 05/24/20 Range/Units 21:56 21:56 22:16 WBC 12.6 H (3.8-10.6) k/uL RBC 5.14 (3.80-5.40) m/uL Hgb 13.5 (11.4-16.0) gm/dL Hct 40.9 (34.0-46.0) % MCV 79.6 L (80.0-100.0) fL MCH 26.2 (25.0-35.0) pg MCHC 33.0 (31.0-37.0) g/dL RDW 15.8 H (11.5-15.5) % Plt Count 274 (150-450) k/uL Neutrophils % 82 % Lymphocytes % 13 % Monocytes % 2 % Eosinophils % 2 % Basophils % 0 % Neutrophils # 10.3 H (1.3-7.7) k/uL Lymphocytes # 1.7 (1.0-4.8) k/uL Monocytes # 0.3 (0-1.0) k/uL Eosinophils # 0.2 (0-0.7) k/uL Basophils # 0.0 (0-0.2) k/uL Sodium 137 (137-145) mmol/L Potassium 4.2 (3.5-5.1) mmol/L Chloride 105 (98-107) mmol/L Carbon Dioxide 20 L (22-30) mmol/L Anion Gap 12 mmol/L BUN 11 (7-17) mg/dL Creatinine 0.84 (0.52-1.04) mg/dL Est GFR (CKD-EPI)AfAm >90 (>60 ml/min/1.73 sqM) Est GFR (CKD-EPI)NonAf >90 (>60 ml/min/1.73 sqM) Glucose 132 H (74-99) mg/dL Lactic Ac Sepsis Rflx Plasma Lactic Acid Ric 2.2 H* (0.7-2.0) mmol/L Calcium 10.0 (8.4-10.2) mg/dL Total Bilirubin 0.8 (0.2-1.3) mg/dL AST 28 (14-36) U/L ALT 18 (4-34) U/L Alkaline Phosphatase 91 (38-126) U/L Total Protein 7.9 (6.3-8.2) g/dL Albumin 4.7 (3.5-5.0) g/dL Lipase 75 (23-300) U/L Urine Color Urine Appearance (Clear) Urine pH (5.0-8.0) Ur Specific [place] (1.001-1.035) Urine Protein (Negative) Urine Glucose (UA) (Negative) Urine Ketones (Negative) Urine Blood (Negative) Urine Nitrite (Negative) Urine Bilirubin (Negative) Urine Urobilinogen (<2.0) mg/dL Ur Leukocyte Esterase (Negative) Urine RBC (0-5) /hpf Urine WBC (0-5) /hpf Ur Squamous Epith Cells (0-4) /hpf Urine Bacteria (None) /hpf Hyaline Casts (0-2) /lpf Urine Mucus (None) /hpf Urine HCG, Qual (Not Detectd) 05/24/20 05/24/20 05/24/20 Range/Units 22:39 23:12 23:12 WBC (3.8-10.6) k/uL RBC (3.80-5.40) m/uL Hgb (11.4-16.0) gm/dL Hct (34.0-46.0) % MCV (80.0-100.0) fL MCH (25.0-35.0) pg MCHC (31.0-37.0) g/dL RDW (11.5-15.5) % Plt Count (150-450) k/uL Neutrophils % % Lymphocytes % % Monocytes % % Eosinophils % % Basophils % % Neutrophils # (1.3-7.7) k/uL Lymphocytes # (1.0-4.8) k/uL Monocytes # (0-1.0) k/uL Eosinophils # (0-0.7) k/uL Basophils # (0-0.2) k/uL Sodium (137-145) mmol/L Potassium (3.5-5.1) mmol/L Chloride (98-107) mmol/L Carbon Dioxide (22-30) mmol/L Anion Gap mmol/L BUN (7-17) mg/dL Creatinine (0.52-1.04) mg/dL Est GFR (CKD-EPI)AfAm (>60 ml/min/1.73 sqM) Est GFR (CKD-EPI)NonAf (>60 ml/min/1.73 sqM) Glucose (74-99) mg/dL Lactic Ac Sepsis Rflx Y Plasma Lactic Acid Ric (0.7-2.0) mmol/L Calcium (8.4-10.2) mg/dL Total Bilirubin (0.2-1.3) mg/dL AST (14-36) U/L ALT (4-34) U/L Alkaline Phosphatase (38-126) U/L Total Protein (6.3-8.2) g/dL Albumin (3.5-5.0) g/dL Lipase (23-300) U/L Urine Color Yellow Urine Appearance Cloudy H (Clear) Urine pH 8.0 (5.0-8.0) Ur Specific [place] 1.027 (1.001-1.035) Urine Protein 1+ H (Negative) Urine Glucose (UA) Negative (Negative) Urine Ketones 4+ H (Negative) Urine Blood Negative (Negative) Urine Nitrite Negative (Negative) Urine Bilirubin Negative (Negative) Urine Urobilinogen 2.0 (<2.0) mg/dL Ur Leukocyte Esterase Negative (Negative) Urine RBC <1 (0-5) /hpf Urine WBC 1 (0-5) /hpf Ur Squamous Epith Cells 7 H (0-4) /hpf Urine Bacteria Rare H (None) /hpf Hyaline Casts 1 (0-2) /lpf Urine Mucus Many H (None) /hpf Urine HCG, Qual Not Detected (Not Detectd) 05/25/20 Range/Units 01:06 WBC (3.8-10.6) k/uL RBC (3.80-5.40) m/uL Hgb (11.4-16.0) gm/dL Hct (34.0-46.0) % MCV (80.0-100.0) fL MCH (25.0-35.0) pg MCHC (31.0-37.0) g/dL RDW (11.5-15.5) % Plt Count (150-450) k/uL Neutrophils % % Lymphocytes % % Monocytes % % Eosinophils % % Basophils % % Neutrophils # (1.3-7.7) k/uL Lymphocytes # (1.0-4.8) k/uL Monocytes # (0-1.0) k/uL Eosinophils # (0-0.7) k/uL Basophils # (0-0.2) k/uL Sodium (137-145) mmol/L Potassium (3.5-5.1) mmol/L Chloride (98-107) mmol/L Carbon Dioxide (22-30) mmol/L Anion Gap mmol/L BUN (7-17) mg/dL Creatinine (0.52-1.04) mg/dL Est GFR (CKD-EPI)AfAm (>60 ml/min/1.73 sqM) Est GFR (CKD-EPI)NonAf (>60 ml/min/1.73 sqM) Glucose (74-99) mg/dL Lactic Ac Sepsis Rflx Plasma Lactic Acid Ric 0.9 (0.7-2.0) mmol/L Calcium (8.4-10.2) mg/dL Total Bilirubin (0.2-1.3) mg/dL AST (14-36) U/L ALT (4-34) U/L Alkaline Phosphatase (38-126) U/L Total Protein (6.3-8.2) g/dL Albumin (3.5-5.0) g/dL Lipase (23-300) U/L Urine Color Urine Appearance (Clear) Urine pH (5.0-8.0) Ur Specific [place] (1.001-1.035) Urine Protein (Negative) Urine Glucose (UA) (Negative) Urine Ketones (Negative) Urine Blood (Negative) Urine Nitrite (Negative) Urine Bilirubin (Negative) Urine Urobilinogen (<2.0) mg/dL Ur Leukocyte Esterase (Negative) Urine RBC (0-5) /hpf Urine WBC (0-5) /hpf Ur Squamous Epith Cells (0-4) /hpf Urine Bacteria (None) /hpf Hyaline Casts (0-2) /lpf Urine Mucus (None) /hpf Urine HCG, Qual (Not Detectd) Disposition <Teja Martinez - Last Filed: 05/24/20 23:17> Is patient prescribed a controlled substance at d/c from ED?: No <Les Frias - Last Filed: 05/25/20 01:59> Clinical Impression: Abdominal pain Disposition: HOME SELF-CARE Condition: Good Instructions (If sedation given, give patient instructions): Abdominal Pain (ED) Prescriptions: Ondansetron Odt [Zofran ODT] 4 mg PO Q8HR PRN #10 tab PRN Reason: Nausea Referrals: Lydia Martin DO [REFERRING] - 1-2 days
[2020-05-24 22:31] LABS: ALT 18 U/L (4-34); AST 28 U/L (14-36); African American GFR (CKD) >90 (>60 ml/min/1.73 sqM); Albumin 4.7 g/dL (3.5-5.0); Alkaline Phosphatase 91 U/L (38-126); Anion Gap 12 mmol/L; Blood Urea Nitrogen 11 mg/dL (7-17); Carbon Dioxide 20 mmol/L (22-30); Chloride 105 mmol/L (98-107); Glucose 132 mg/dL (74-99); Non-African American GFR(CKD) >90 (>60 ml/min/1.73 sqM); Sodium 137 mmol/L (137-145); Total Bilirubin 0.8 mg/dL (0.2-1.3); Total Protein 7.9 g/dL (6.3-8.2)
[2020-05-24 22:33] LABS: Potassium 4.2 mmol/L (3.5-5.1)
--- NOTE | 2020-05-24 23:01 | US ---
EXAMINATION TYPE: US transvaginal DATE OF EXAM: 05/24/2020 COMPARISON: CT CLINICAL HISTORY: RLQ pain . RLQ pain x 1 day. Hx ovarian cyst. LMP unknown. . TECHNIQUE: Transvaginal (TV). Date of LMP: Unknown EXAM MEASUREMENTS: Uterus: 8.3 x 4.3 x 3.6 cm Endometrial Stripe: 1.27 cm Right Ovary: not seen Left Ovary: 3.6 x 2.5 x 1.7 cm 1. Uterus: Anteverted Hypoechoic area seen: 1.2 x 0.9 x 0.3 cm. Appears heterogeneous. 2. Endometrium: Measures 1.27 cm. 3. Right Ovary: not seen 4. Left Ovary: Anechoic area seen: 2.0 x 1.8 x 1.4 cm. Spectral, color and waveform doppler imaging shows good venous flow within the left ovary. Arterial waveform was limited possibly due to depth of ovary. Could not clearly demonstrate a strong arterial waveform. 5. Bilateral Adnexa: Minimal fluid seen adjacent to the left ovary: 0.6 x 0.7 x 0.5 cm. 6. Posterior cul-de-sac: Fluid seen. IMPRESSION: Right ovary not seen. No sign of ovarian torsion. Mild thickening of the endometrium without evidence of endometrial mass. Small cyst on the left ovary . No solid adnexal mass. Vascularity of the ovaries not well evaluated on this exam. Small amount of free fluid in the cul-de-sac is probably physiologic.
[2020-05-24 23:22] LABS: Appearance,Urine Cloudy (Clear); Bacteria,Urine Rare /hpf; Bilirubin,Urine Negative (Negative); Blood,Urine Negative (Negative); Color,Urine Yellow; Glucose,Urine (UA) Negative (Negative); Hyaline Casts,Urine 1 /lpf (0-2); Ketones,Urine 4+ (Negative); Leukocyte Esterase,Urine Negative (Negative); Mucus,Urine Many /hpf; Nitrite,Urine Negative (Negative); Protein,Urine 1+ (Negative); RBC,Urine <1 /hpf (0-5); Specific Gravity,Urine 1.027 (1.001-1.035); Squamous Epithelial Cell,Urine 7 /hpf (0-4); WBC,Urine 1 /hpf (0-5)
--- NOTE | 2020-05-24 23:54 | CT ---
EXAMINATION TYPE: CT abdomen pelvis w con DATE OF EXAM: 05/24/2020 COMPARISON: 03/06/2018 HISTORY: RLQ pain CT DLP: 1780.7 mGycm Automated exposure control for dose reduction was used. CONTRAST: Performed with IV Contrast, patient injected with 100 mL of Isovue 300. Multiple axial sections were obtained from the diaphragm to the floor the pelvis with IV contrast Iso misty 100 mL. FINDINGS: The lung bases are clear. There is no pleural effusion. Heart size is normal. There is no pericardial effusion. There is small hiatal hernia. Liver spleen pancreas gallbladder appear normal. Bile ducts are not dilated. Stomach is intact. There is no adrenal mass. Kidneys show satisfactory contrast opacification. There is no hydronephrosi s. Ureters are not dilated. Bladder distends smoothly. There is no inguinal hernia. Uterus is antever nathan. There is no free fluid in the pelvis. There is no mesenteric edema. There is no ascites or free air. There is no sign of a bowel obstructio n. Appendix is partly filled with air and appears normal. The lumbar vertebra have normal spacing and alignment. Posterior elements are intact. The bony pelvis appears intact. IMPRESSION: Negative CT scan of the abdomen and pelvis. Normal appendix. No adverse change compared to old exam.
[2020-05-25 02:10] VITALS: BP 106/58; PULSE 64; RESP 16; TEMP 98.2
== END 2020-05-25 02:11 | disposition home or self-care (01) ==
LOC: EC 21:27
DX: R10.31 Right lower quadrant pain (principal); D72.829 Elevated white blood cell count, unspecified; R74.0 Nonspecific elevation of levels of transaminase and lactic acid dehydrogenase [LDH]; Z88.0 Allergy status to penicillin
CPT/HCPCS: 99285; 96374; 96375 ×2; 96376; 96361; 36415 ×2; 80053; 83605 ×2; 83690; 85025; 81001; 81025; 87086; 93976; 76830; 74177; J2270; J2765; J2405; Q9967

== ENCOUNTER 2020-05-27 02:56 | Observation (INO) | payer OTHER ==
[2020-05-27] MEDS ORDERED: SODIUM CHLORIDE 0.9% 1,000 ML IV STA (03:07)
[2020-05-27] MEDS ORDERED: ONDANSETRON 4 MG/2 ML VIAL IVP STA (03:09)
[2020-05-27 03:22] LABS: Basophils % (A) 0 %; Eosinophils # (A) 0.3 k/uL (0-0.7); Eosinophils % (A) 2 %; HCT 41.4 % (34.0-46.0); HGB 13.6 gm/dL (11.4-16.0); Lymphocytes # (A) 3.6 k/uL (1.0-4.8); Lymphocytes % (A) 25 %; MCH 26.5 pg (25.0-35.0); MCHC 32.9 g/dL (31.0-37.0); MCV 80.6 fL (80.0-100.0); Mean Platelet Volume 7.9; Monocytes # (A) 0.6 k/uL (0-1.0); Monocytes % (A) 5 %; Neutrophils # (A) 9.5 k/uL (1.3-7.7); Neutrophils % (A) 67 %; Platelet Count 256 k/uL (150-450); RBC 5.14 m/uL (3.80-5.40); RDW 15.9 % (11.5-15.5); WBC 14.1 k/uL (3.8-10.6)
[2020-05-27 03:30] LABS: ALT 92 U/L (4-34); AST 103 U/L (14-36); African American GFR (CKD) >90 (>60 ml/min/1.73 sqM); Albumin 4.5 g/dL (3.5-5.0); Alkaline Phosphatase 84 U/L (38-126); Amylase 40 U/L (30-110); Anion Gap 12 mmol/L; Blood Urea Nitrogen 12 mg/dL (7-17); Calcium 9.6 mg/dL (8.4-10.2); Carbon Dioxide 21 mmol/L (22-30); Chloride 100 mmol/L (98-107); Glucose 114 mg/dL (74-99); Non-African American GFR(CKD) >90 (>60 ml/min/1.73 sqM); Potassium 3.5 mmol/L (3.5-5.1); Sodium 133 mmol/L (137-145); Total Bilirubin 0.6 mg/dL (0.2-1.3); Total Protein 7.3 g/dL (6.3-8.2)
[2020-05-27 03:39] LABS: Appearance,Urine Cloudy (Clear); Bilirubin,Urine Negative (Negative); Blood,Urine Negative (Negative); Color,Urine Yellow; Glucose,Urine (UA) Negative (Negative); Ketones,Urine 3+ (Negative); Leukocyte Esterase,Urine Negative (Negative); Mucus,Urine Rare /hpf; Nitrite,Urine Negative (Negative); PH, Urine 7.5 (5.0-8.0); Protein,Urine Trace (Negative); RBC,Urine 1 /hpf (0-5); Specific Gravity,Urine 1.021 (1.001-1.035); Squamous Epithelial Cell,Urine 9 /hpf (0-4); Urobilinogen,Urine <2.0 mg/dL (<2.0); WBC,Urine 3 /hpf (0-5)
[2020-05-27] MEDS ORDERED: diphenhydrAMINE 50 MG/ML 1 ML VIAL IVP STA ×2 (03:42→10:24)
[2020-05-27] MEDS ORDERED: MORPHINE SULFATE 4 MG/ML SYRINGE IVP STA ×2 (03:42→05:21)
--- NOTE | 2020-05-27 03:58 | ED ---
Abdominal Pain HPI - General Chief Complaint: Abdominal Pain Stated Complaint: Vomiting Time Seen by Provider: 05/27/20 03:06 Source: patient, EMS Mode of arrival: EMS Limitations: no limitations - History of Present Illness Initial Comments: Roxi is a 24-year-old female with a history of IBS who presents the ER today for reevaluation of right lower quadrant abdominal pain. Patient was seen and evaluated 2 days ago she had mild leukocytosis but unremarkable topical ultrasound and abdominal CT. She is subsequently discharged home. Patient reports she transiently felt better but today is having severe worsening right lower quadrant pain with associated nausea and vomiting. Patient reports she's had numerous episodes of nonbloody nonbilious emesis and continues to dry heave due to the pain. Patient reports she's had chronic abdominal pain in the past its miniature related to IBS but nothing this severe. She is a marijuana smoker but not daily has never been diagnosed with cyclic vomiting. - Related Data Previous Rx's Medication Instructions Recorded Ondansetron Odt [Zofran ODT] 4 mg PO Q8HR PRN #10 tab 05/25/20 Allergies Allergy/AdvReac Type Severity Reaction Status Date / Time amoxicillin Allergy Unknown Verified 05/24/20 23:13 Review of Systems ROS Statement: Those systems with pertinent positive or pertinent negative responses have been documented in the HPI. ROS Other: All systems not noted in ROS Statement are negative. Past Medical History Additional Past Medical History / Comment(s): IBS, gastritis, hernia History of Any Multi-Drug Resistant Organisms: C-DIFF Date of last positivie culture/infection: 2016 MDRO Source:: antibotics Additional Past Surgical History / Comment(s): Ureter tube surgery Past Anesthesia/Blood Transfusion Reactions: No Reported Reaction Past Psychological History: Anxiety, Depression Smoking Status: Never smoker Past Alcohol Use History: Occasional Past Drug Use History: Marijuana - Past Family History Mother Family Medical History: Asthma, Hypertension General Exam - General Exam Comments Initial Comments: Physical Exam GENERAL: Patient is well-developed and obese Patient is actively vomiting during exam HENT: Normocephalic, Atraumatic. EYES: PERRL, EOMI PULMONARY: Tachypnea associated with crying CARDIOVASCULAR: There is a regular rate and rhythm without any murmurs gallops or rubs. ABDOMEN: Soft, tenderness to palpation most prominent right lower quadrant SKIN: Skin is clear with no lesions or rashes and otherwise unremarkable. : Deferred NEUROLOGIC: Patient is alert and oriented x3. Moving all extremities spontaneously MUSCULOSKELETAL: Normal extremities with adequate strength and full range of motion. No lower extremity swelling or edema. No calf tenderness. PSYCHIATRIC: Normal psychiatric evaluation. Limitations: no limitations Course Vital Signs 05/27/20 03:06 Temperature 98.6 F Pulse Rate 70 Respiratory 16 Rate Blood Pressure 133/83 O2 Sat by Pulse 97 Oximetry Medical Decision Making - Medical Decision Making Patient with recurrent RLQ abdominal pain, vomiting, heaving Labs with worsening leukocytosis Pain minimally improved with Morphine/Benadryl/Zofran Due to worsening pain and WBC will repeat CT for possible appy CT with no acute findings Patient continues to heave and complain of pain in the abdomen which she rates a 10 out of 10. Patient will be admitted for intractable abdominal pain for evaluation by GI. - Lab Data Result diagrams: 05/27/20 03:08 05/27/20 03:08 Lab Results 05/27/20 05/27/20 05/27/20 Range/Units 03:08 03:08 03:08 WBC 14.1 H (3.8-10.6) k/uL RBC 5.14 (3.80-5.40) m/uL Hgb 13.6 (11.4-16.0) gm/dL Hct 41.4 (34.0-46.0) % MCV 80.6 (80.0-100.0) fL MCH 26.5 (25.0-35.0) pg MCHC 32.9 (31.0-37.0) g/dL RDW 15.9 H (11.5-15.5) % Plt Count 256 (150-450) k/uL Neutrophils % 67 % Lymphocytes % 25 % Monocytes % 5 % Eosinophils % 2 % Basophils % 0 % Neutrophils # 9.5 H (1.3-7.7) k/uL Lymphocytes # 3.6 (1.0-4.8) k/uL Monocytes # 0.6 (0-1.0) k/uL Eosinophils # 0.3 (0-0.7) k/uL Basophils # 0.0 (0-0.2) k/uL Sodium 133 L (137-145) mmol/L Potassium 3.5 (3.5-5.1) mmol/L Chloride 100 (98-107) mmol/L Carbon Dioxide 21 L (22-30) mmol/L Anion Gap 12 mmol/L BUN 12 (7-17) mg/dL Creatinine 0.81 (0.52-1.04) mg/dL Est GFR (CKD-EPI)AfAm >90 (>60 ml/min/1.73 sqM) Est GFR (CKD-EPI)NonAf >90 (>60 ml/min/1.73 sqM) Glucose 114 H (74-99) mg/dL Plasma Lactic Acid Ric 2.3 H* (0.7-2.0) mmol/L Calcium 9.6 (8.4-10.2) mg/dL Total Bilirubin 0.6 (0.2-1.3) mg/dL AST 103 H (14-36) U/L ALT 92 H (4-34) U/L Alkaline Phosphatase 84 (38-126) U/L C-Reactive Protein (<10.0) mg/L Total Protein 7.3 (6.3-8.2) g/dL Albumin 4.5 (3.5-5.0) g/dL Amylase 40 (30-110) U/L Lipase 141 (23-300) U/L Urine Color Urine Appearance (Clear) Urine pH (5.0-8.0) Ur Specific Rankin (1.001-1.035) Urine Protein (Negative) Urine Glucose (UA) (Negative) Urine Ketones (Negative) Urine Blood (Negative) Urine Nitrite (Negative) Urine Bilirubin (Negative) Urine Urobilinogen (<2.0) mg/dL Ur Leukocyte Esterase (Negative) Urine RBC (0-5) /hpf Urine WBC (0-5) /hpf Ur Squamous Epith Cells (0-4) /hpf Urine Mucus (None) /hpf 05/27/20 05/27/20 Range/Units 03:08 03:25 WBC (3.8-10.6) k/uL RBC (3.80-5.40) m/uL Hgb (11.4-16.0) gm/dL Hct (34.0-46.0) % MCV (80.0-100.0) fL MCH (25.0-35.0) pg MCHC (31.0-37.0) g/dL RDW (11.5-15.5) % Plt Count (150-450) k/uL Neutrophils % % Lymphocytes % % Monocytes % % Eosinophils % % Basophils % % Neutrophils # (1.3-7.7) k/uL Lymphocytes # (1.0-4.8) k/uL Monocytes # (0-1.0) k/uL Eosinophils # (0-0.7) k/uL Basophils # (0-0.2) k/uL Sodium (137-145) mmol/L Potassium (3.5-5.1) mmol/L Chloride (98-107) mmol/L Carbon Dioxide (22-30) mmol/L Anion Gap mmol/L BUN (7-17) mg/dL Creatinine (0.52-1.04) mg/dL Est GFR (CKD-EPI)AfAm (>60 ml/min/1.73 sqM) Est GFR (CKD-EPI)NonAf (>60 ml/min/1.73 sqM) Glucose (74-99) mg/dL Plasma Lactic Acid Ric (0.7-2.0) mmol/L Calcium (8.4-10.2) mg/dL Total Bilirubin (0.2-1.3) mg/dL AST (14-36) U/L ALT (4-34) U/L Alkaline Phosphatase (38-126) U/L C-Reactive Protein 7.9 (<10.0) mg/L Total Protein (6.3-8.2) g/dL Albumin (3.5-5.0) g/dL Amylase (30-110) U/L Lipase (23-300) U/L Urine Color Yellow Urine Appearance Cloudy H (Clear) Urine pH 7.5 (5.0-8.0) Ur Specific Rankin 1.021 (1.001-1.035) Urine Protein Trace H (Negative) Urine Glucose (UA) Negative (Negative) Urine Ketones 3+ H (Negative) Urine Blood Negative (Negative) Urine Nitrite Negative (Negative) Urine Bilirubin Negative (Negative) Urine Urobilinogen <2.0 (<2.0) mg/dL Ur Leukocyte Esterase Negative (Negative) Urine RBC 1 (0-5) /hpf Urine WBC 3 (0-5) /hpf Ur Squamous Epith Cells 9 H (0-4) /hpf Urine Mucus Rare H (None) /hpf Disposition Clinical Impression: Abdominal pain Disposition: ADMITTED IP TO THIS HOSP Condition: Stable Is patient prescribed a controlled substance at d/c from ED?: No Referrals: None,Stated [Primary Care Provider] - 1-2 days
--- NOTE | 2020-05-27 05:09 | CT ---
EXAMINATION TYPE: CT abdomen pelvis w con DATE OF EXAM: 05/27/2020 COMPARISON: 05/24/2020 HISTORY: pain Right lower quadrant pain CT DLP: 2085.6 mGycm Automated exposure control for dose reduction was used. CONTRAST: Performed with IV Contrast, patient injected with 100 mL of Isovue 300. Lung bases are clear. There is no pleural effusion. Heart size is normal. There is no pericardial eff usion. Liver spleen stomach pancreas gallbladder appear normal. Bile ducts are not dilated. There is small h iatal hernia. There is no adrenal mass. Kidneys have normal size and contour. There is satisfactory contrast opacif ication of the kidneys. There is no hydronephrosis. Delayed images show normal renal excretion. There is no retroperitoneal adenopathy. Ureters are not dilated. Bladder distends smoothly. There is no in guinal hernia. Uterus appears normal. There is 2.5 cm cyst on the left ovary. There is no evidence of thickened appendix. Appendix is not well visualized. There is no mesenteric edema. There is no ascites or free air. There is no bowel obstruction. The lum bar spine is intact. Bony pelvis appears intact. IMPRESSION: Negative CT scan abdomen and pelvis. No sign of appendicitis. There is cyst on the left ovary that ap pears slightly increased compared to recent exam.
[2020-05-27] MEDS ORDERED: PROCHLORPERAZINE SUPPOSITORY 25 MG SUPP RECTAL PRN (05:21)
[2020-05-27] MEDS ORDERED: NALOXONE 0.4 MG/ML 1 ML VIAL IV PRN (05:21)
[2020-05-27] MEDS ORDERED: ONDANSETRON 4 MG/2 ML VIAL IVP PRN (05:21)
[2020-05-27] MEDS: SODIUM CHLORIDE 0.9% 1,000 ML IV SCH ×3 (08:26→21:18)
[2020-05-27] MEDS: PANTOPRAZOLE 40 MG/10 ML VIAL IV SCH (08:26)
[2020-05-27] MEDS ORDERED: diphenhydrAMINE 50 MG/ML 1 ML VIAL ONE (10:31)
[2020-05-27] MEDS: ONDANSETRON 4 MG/2 ML VIAL IVP SCH ×3 (12:20→23:31)
[2020-05-27] MEDS: DICYCLOMINE 10 MG CAP PO SCH ×4 (12:22→23:04)
[2020-05-27] MEDS: TRIMETHOBENZAMIDE 100 MG/ML 2 ML VIAL IM PRN ×2 (12:40→18:29)
--- NOTE | 2020-05-27 14:32 | P.HPIM ---
History of Present Illness This is a pleasant 24 years old female with past medical history of irritable bowel syndrome, gastritis, C. diff infection. Depression, anxiety. Presents because of abdominal pain patient says that abdominal pain started 3 days but early this morning at 1:00 with her from sleep with severe pain. When it went to see the patient she was whirling from pain , crying. Before that she was more comfortable and however she went to have bowel movement followed by the severe pain, her pain mainly in the lower abdomen, nonradiating felt like stabbing. She has frequent vomiting also she had about 3-4 times bowel movement that's watery She denies any vaginal discharge Vital signs stable and patient is afebrile. She has elevated WBC of 14.1 K, elevated lactic acid 2.3 came back to normal at 2.0. Sodium is mildly low at 133, creatinine normal at 0.8. Liver enzymes slightly elevated CT of the abdomen and pelvis: Negative per radiologist, slightly increased left ovarian cyst Review of Systems CONSTITUTIONAL: No fever, no malaise, no fatigue. HEENT: No recent visual problems or hearing problems. Denied any sore throat. CARDIOVASCULAR: No orthopnea, PND, no palpitations, no syncope. PULMONARY: No shortness of breath, no cough, no hemoptysis. GASTROINTESTINAL: No diarrhea, no nausea, no vomiting, no abdominal pain. Normoactive bowel sounds. NEUROLOGICAL: No headaches, no weakness, no numbness. HEMATOLOGICAL: Denies any bleeding or petechiae. GENITOURINARY: Denies any burning micturition, frequency, or urgency. MUSCULOSKELETAL/RHEUMATOLOGICAL: Denies any joint pain, swelling, or any muscle pain. ENDOCRINE: Denies any polyuria or polydipsia. Past Medical History Additional Past Medical History / Comment(s): IBS, gastritis, hernia History of Any Multi-Drug Resistant Organisms: C-DIFF Date of last positivie culture/infection: 2016 MDRO Source:: antibotics Additional Past Surgical History / Comment(s): Ureter tube surgery Past Anesthesia/Blood Transfusion Reactions: No Reported Reaction Past Psychological History: Anxiety, Depression Additional Psychological History / Comment(s): previously treated with lithium Smoking Status: Never smoker Past Alcohol Use History: Occasional Past Drug Use History: Marijuana - Past Family History Mother Family Medical History: Asthma, Hypertension Medications and Allergies Home Medications Medication Instructions Recorded Confirmed Type Ondansetron Odt [Zofran ODT] 4 mg PO Q8HR PRN #10 tab 05/25/20 05/27/20 Rx Allergies Allergy/AdvReac Type Severity Reaction Status Date / Time amoxicillin Allergy Unknown Verified 05/27/20 09:44 Physical Exam Vitals: Vital Signs Temp Pulse Pulse Resp BP BP Pulse Ox 05/27/20 08:00 98.6 F 84 16 155/80 99 05/27/20 06:29 98 F 61 18 100 05/27/20 05:59 70 18 140/81 100 05/27/20 03:06 98.6 F 70 16 133/83 97 Intake and Output 05/26/20 05/27/20 05/27/20 22:59 06:59 14:59 Intake Total 600 Balance 600 Intake: Intake, IV Titration 600 Amount Sodium Chloride 0.9% 1, 600 000 ml @ 125 mls/hr IV . Q8H [facility] Rx#:[id number] Other: Weight 113.398 kg GENERAL: The patient is alert and oriented x3, not in any acute distress. Well developed, well nourished. HEENT: Pupils are round and equally reacting to light. EOMI. No scleral icterus. No conjunctival pallor. Normocephalic, atraumatic. No pharyngeal erythema. No thyromegaly. CARDIOVASCULAR: S1 and S2 present. No murmurs, rubs, or gallops. PULMONARY: Chest is clear to auscultation, no wheezing or crackles. -ABDOMEN: Soft, lower abdomen tender, nondistended, normoactive bowel sounds. No palpable organomegaly. MUSCULOSKELETAL: No joint swelling or deformity. EXTREMITIES: No cyanosis, clubbing, or pedal edema. NEUROLOGICAL: Gross neurological examination did not reveal any focal deficits. SKIN: No rashes. No petechiae Results CBC & Chem 7: 05/27/20 03:08 05/27/20 03:08 Labs: Abnormal Lab Results - Last 24 Hours (Table) 05/27/20 05/27/20 05/27/20 Range/Units 03:08 03:08 03:08 WBC 14.1 H (3.8-10.6) k/uL RDW 15.9 H (11.5-15.5) % Neutrophils # 9.5 H (1.3-7.7) k/uL Sodium 133 L (137-145) mmol/L Carbon Dioxide 21 L (22-30) mmol/L Glucose 114 H (74-99) mg/dL Plasma Lactic Acid Ric 2.3 H* (0.7-2.0) mmol/L AST 103 H (14-36) U/L ALT 92 H (4-34) U/L Urine Appearance (Clear) Urine Protein (Negative) Urine Ketones (Negative) Ur Squamous Epith Cells (0-4) /hpf Urine Mucus (None) /hpf 05/27/20 Range/Units 03:25 WBC (3.8-10.6) k/uL RDW (11.5-15.5) % Neutrophils # (1.3-7.7) k/uL Sodium (137-145) mmol/L Carbon Dioxide (22-30) mmol/L Glucose (74-99) mg/dL Plasma Lactic Acid Ric (0.7-2.0) mmol/L AST (14-36) U/L ALT (4-34) U/L Urine Appearance Cloudy H (Clear) Urine Protein Trace H (Negative) Urine Ketones 3+ H (Negative) Ur Squamous Epith Cells 9 H (0-4) /hpf Urine Mucus Rare H (None) /hpf Thrombosis Risk Factor Assmnt - Choose All That Apply Any of the Below Risk Factors Present?: No Other Risk Factors: No Other congenital or acquired thrombophilia - If yes, enter type in comment: No Thrombosis Risk Factor Assessment Level: Very Low Risk Assessment and Plan Assessment: -Abdominal pain, possible gastrointestinal irritable bowel syndrome versus gastroenteritis versus other. . GI team on the case and they recommended conservative management with Bentyl, Tigan and Zofran. Consult surgery -Mild transaminitis with elevated liver enzymes -Elevated lactic acid, came back to normal -Mild hypovolemic hyponatremia, continue with IV fluids -Left ovarian cyst, we'll call [employer] consult -Depression, anxiety, but an active issue DVT prophylaxis: Heparin GI prophylaxis Protonix
[2020-05-27] MEDS ORDERED: LEVOFLOXACIN 500MG-D5W PMX 500 MG in DEXTROSE/WATER 1 100ML.BAG IVPB SCH (15:00)
[2020-05-27] MEDS: MORPHINE SULFATE 4 MG/ML SYRINGE IVP PRN ×3 (15:06→23:02)
--- NOTE | 2020-05-27 16:19 | P.OBCN ---
History of Present Illness Consult date: 05/27/20 Requesting physician: Dustin E Leatha Reason for consult: other (Abdominal pain and the presence of a 2.5 cm left ovarian cyst) Chief complaint: Abdominal pain, nausea, diarrhea History of present illness: This is a 24-year-old 1 para 1 that presented to the hospital earlier yesterday with complaints of severe abdominal pain. Patient states she had an episode of diarrhea and immediately following noted severe abdominal pain. Patient notes her nausea has been multiple times throughout the day today in addition. Patient has a known history of IBS and she feels like she's been having a worsened flare over the last 4 months. Patient states her menstrual cycles are regular every 28-30 days lasting 5 days with a heavy flow, she is currently taking a control for contraception. Patient is status post primary for postdates, failed induction of labor with patient request for primary . was performed approximately 14 months ago. Patient states she was seen for dehydration secondary to nausea and vomiting on 05/24 ultrasound was performed and a 2 cm ovarian cyst was noted on the left. Otherwise unremarkable pelvic ultrasound. When she presented on 05/27 she had a CAT scan of the abdomen and pelvis done as she was in a significant amount of discomfort with complaints of right lower quadrant pain. CAT scan revealing a left ovarian cyst measuring 2.5 cm. Patient states she has a known history of ovarian cysts. Review of Systems Constitutional: Reports fatigue, Denies chills, Denies fever Ears, nose, mouth and throat: Denies headache Cardiovascular: Denies edema Respiratory: Denies dyspnea Gastrointestinal: Reports diarrhea, Reports heartburn, Reports nausea, Reports vomiting, Denies constipation Genitourinary: Reports as per HPI Menstruation: Reports as per HPI Past Medical History Additional Past Medical History / Comment(s): IBS, gastritis, hernia History of Any Multi-Drug Resistant Organisms: C-DIFF Year Discovered:: 2017 MDRO Source:: antibotics Additional Past Surgical History / Comment(s): Ureter tube surgery Past Anesthesia/Blood Transfusion Reactions: No Reported Reaction Past Psychological History: Anxiety, Depression Additional Psychological History / Comment(s): previously treated with lithium Smoking Status: Never smoker Past Alcohol Use History: Occasional Past Drug Use History: Marijuana - Past Family History Mother Family Medical History: Asthma, Hypertension Medications and Allergies Home Medications Medication Instructions Recorded Confirmed Type Ondansetron Odt [Zofran ODT] 4 mg PO Q8HR PRN #10 tab 05/25/20 05/27/20 Rx Allergies Allergy/AdvReac Type Severity Reaction Status Date / Time amoxicillin Allergy Unknown Verified 05/27/20 09:44 Exam Osteopathic Statement: *. No significant issues noted on an osteopathic structural exam other than those noted in the History and Physical/Consult. Vital Signs Temp Pulse Pulse Resp BP BP Pulse Ox 05/27/20 15:00 98.4 F 80 16 160/84 98 05/27/20 08:00 98.6 F 84 16 155/80 99 05/27/20 06:29 98 F 61 18 100 05/27/20 05:59 70 18 140/81 100 05/27/20 03:06 98.6 F 70 16 133/83 97 Intake and Output 05/27/20 05/27/20 05/27/20 06:59 14:59 22:59 Intake Total 600 Balance 600 Intake: Intake, IV Titration 600 Amount Sodium Chloride 0.9% 1, 600 000 ml @ 125 mls/hr IV . Q8H [facility] Rx#:[id number] Other: Weight 113.398 kg Targeted physical exam is performed in this date in general this is a well- nourished well-developed female in no acute distress. Patient is sitting up very comfortable in bed as I entered the room. Patient states she got morphine approximate 1 hour prior to my visit. Patient's breathing is noted to non labored, her heart has a regular rate and rhythm, and her abdomen is soft and nontender. Results Result Diagrams: 05/27/20 03:08 05/27/20 03:08 Abnormal Lab Results - Last 24 Hours (Table) 05/27/20 05/27/20 05/27/20 Range/Units 03:08 03:08 03:08 WBC 14.1 H (3.8-10.6) k/uL RDW 15.9 H (11.5-15.5) % Neutrophils # 9.5 H (1.3-7.7) k/uL Sodium 133 L (137-145) mmol/L Carbon Dioxide 21 L (22-30) mmol/L Glucose 114 H (74-99) mg/dL Plasma Lactic Acid Ric 2.3 H* (0.7-2.0) mmol/L AST 103 H (14-36) U/L ALT 92 H (4-34) U/L Urine Appearance (Clear) Urine Protein (Negative) Urine Ketones (Negative) Ur Squamous Epith Cells (0-4) /hpf Urine Mucus (None) /hpf 05/27/20 Range/Units 03:25 WBC (3.8-10.6) k/uL RDW (11.5-15.5) % Neutrophils # (1.3-7.7) k/uL Sodium (137-145) mmol/L Carbon Dioxide (22-30) mmol/L Glucose (74-99) mg/dL Plasma Lactic Acid Ric (0.7-2.0) mmol/L AST (14-36) U/L ALT (4-34) U/L Urine Appearance Cloudy H (Clear) Urine Protein Trace H (Negative) Urine Ketones 3+ H (Negative) Ur Squamous Epith Cells 9 H (0-4) /hpf Urine Mucus Rare H (None) /hpf Assessment and Plan (1) Ovarian cyst Current Visit: Yes Status: Acute Code(s): N83.209 - UNSPECIFIED OVARIAN CYST, UNSPECIFIED SIDE SNOMED Code(s): 48301391 (2) IBS (irritable bowel syndrome) Current Visit: Yes Status: Acute Code(s): K58.9 - IRRITABLE BOWEL SYNDROME WITHOUT DIARRHEA SNOMED Code(s): 34872147 (3) Diarrhea Current Visit: Yes Status: Acute Code(s): R19.7 - DIARRHEA, UNSPECIFIED SNOMED Code(s): 76872436 (4) Abdominal pain Current Visit: Yes Status: Acute Code(s): R10.9 - UNSPECIFIED ABDOMINAL PAIN SNOMED Code(s): 11541664 Plan: This 24-year-old 1 para 1 presented to the hospital earlier today with complaints of intractable nausea, vomiting, right lower quadrant pain. Patient states pain started after an episode of diarrhea where it was sharp in nature. Patient states she has a history of IBS and feels she has been having a flare increasing in nature for the last 4 months. Ultrasound and CAT scan her revi ewed with this patient. Ultrasound on 05/24 revealing an ovarian cyst on the left 2 cm CAT scan done today revealing left ovarian cyst 2.5 cm. I do believe these are very consistent measurements. I do not believe her discomfort is of [employer] origin. She notes significant pain after episodes of diarrhea, and her most concerning complaint to me at least is the nausea/vomiting. She feels she is unable to keep anything down. I do appreciate the consult,please let me know if I can be of any further a ssistance
[2020-05-27] MEDS: HEPARIN SODIUM,PORCINE 5,000 UNIT/ML 1 ML VIAL SQ SCH (21:17)
--- NOTE | 2020-05-27 21:47 | P.CONS ---
History of Present Illness - Reason for Consult Consult date: 05/27/20 Abdominal pain Requesting physician: Dustin E Sheet - Chief Complaint Abdominal pain - History of Present Illness 24-year-old female with a medical history significant for anxiety and depression previously treated with lithium therapy, irritable bowel syndrome, cyclical vo miting, and prior infection with Clostridium difficile who presented to the hospital with complaints of abdominal pain. She reports severe abdominal pain in the right lower quadrant described as sharp and cramping worsening in intensity for 3 days prior to presentation. She reports some loose watery bowel movements prior to presentation. She also reports multiple episodes of nausea and vomiting. Computed tomography scan of the abdomen was negative for any acute intra-abdominal process with left ovarian cyst felt to be slightly increased in size from prior exam. On questioning the patient is unclear of what medication she was used in the past for her irritable bowel syndrome. Seen in bed she is rocking back and forth and heaving with no actual vomiting seen. Laboratory evaluation significant for WBC 14.1, hemoglobin 13.9, platelet count 254,000, total bilirubin 0.6, alkaline phosphatase 84, AST 11/26/1991. Review of Systems REVIEW OF SYSTEMS: CONSTITUTIONAL: Denies any fevers, chills, weight change or fatigue. CARDIOVASCULAR: Denies any chest pain, palpitations high or low blood pressures RESPIRATORY: Denies any shortness of breath, hemoptysis or cough. GENITOURINARY: No dysuria or hematuria. MUSCULOSKELETAL: No weakness reported. SKIN: Denies any new rashes or lesions, jaundice or pallor. PSYCHIATRIC: History of anxiety and depression currently not on medical treatment. NEUROLOGY: Denies headache, denies any new focal deficits. EARS/NOSE/THROAT: No recent hearing change, congestion, nasal discharge or sore throat. EYES: No pain in eyes, discharge or change in vision. GASTROINTESTINAL: As per HPI. Past Medical History Additional Past Medical History / Comment(s): IBS, gastritis, hernia History of Any Multi-Drug Resistant Organisms: C-DIFF Year Discovered:: 2016 MDRO Source:: antibotics Additional Past Surgical History / Comment(s): Ureter tube surgery Past Anesthesia/Blood Transfusion Reactions: No Reported Reaction Past Psychological History: Anxiety, Depression Additional Psychological History / Comment(s): previously treated with lithium Smoking Status: Never smoker Past Alcohol Use History: Occasional Past Drug Use History: Marijuana - Past Family History Mother Family Medical History: Asthma, Hypertension Medications and Allergies Home Medications Medication Instructions Recorded Confirmed Type Ondansetron Odt [Zofran ODT] 4 mg PO Q8HR PRN #10 tab 05/25/20 05/27/20 Rx Allergies Allergy/AdvReac Type Severity Reaction Status Date / Time amoxicillin Allergy Unknown Verified 05/27/20 09:44 Physical Exam Vitals: Vital Signs Temp Pulse Pulse Resp BP BP Pulse Ox 05/27/20 08:00 98.6 F 84 16 155/80 99 05/27/20 06:29 98 F 61 18 100 05/27/20 05:59 70 18 140/81 100 05/27/20 03:06 98.6 F 70 16 133/83 97 Intake and Output 05/26/20 05/27/20 05/27/20 22:59 06:59 14:59 Other: Weight 113.398 kg On physical examination, patient appears comfortable in no apparent distress. HEAD: Normocephalic, atraumatic. EYES: No scleral icterus. No conjunctival injection. MOUTH: No lesions, tongue midline. NECK: Trachea midline, no gross abnormalities. CHEST: Clear to auscultation with no wheezing or rhonchi appreciated. HEART: Regular rate and rhythm. ABDOMEN: Soft, obese, mildly tender to palpation. Bowel sounds are positive. No organomegaly. No guarding or rigidity. EXTREMITIES: No pedal edema. SKIN: No rashes, no jaundice. NEUROLOGIC: Alert and oriented x3. No focal deficits. Results CBC & Chem 7: 05/27/20 03:08 05/27/20 03:08 Labs: Abnormal Lab Results - Last 24 Hours (Table) 05/27/20 05/27/20 05/27/20 Range/Units 03:08 03:08 03:08 WBC 14.1 H (3.8-10.6) k/uL RDW 15.9 H (11.5-15.5) % Neutrophils # 9.5 H (1.3-7.7) k/uL Sodium 133 L (137-145) mmol/L Carbon Dioxide 21 L (22-30) mmol/L Glucose 114 H (74-99) mg/dL Plasma Lactic Acid Ric 2.3 H* (0.7-2.0) mmol/L AST 103 H (14-36) U/L ALT 92 H (4-34) U/L Urine Appearance (Clear) Urine Protein (Negative) Urine Ketones (Negative) Ur Squamous Epith Cells (0-4) /hpf Urine Mucus (None) /hpf 05/27/20 Range/Units 03:25 WBC (3.8-10.6) k/uL RDW (11.5-15.5) % Neutrophils # (1.3-7.7) k/uL Sodium (137-145) mmol/L Carbon Dioxide (22-30) mmol/L Glucose (74-99) mg/dL Plasma Lactic Acid Ric (0.7-2.0) mmol/L AST (14-36) U/L ALT (4-34) U/L Urine Appearance Cloudy H (Clear) Urine Protein Trace H (Negative) Urine Ketones 3+ H (Negative) Ur Squamous Epith Cells 9 H (0-4) /hpf Urine Mucus Rare H (None) /hpf CT scan - abdomen: report reviewed (Computed tomography scan of the abdomen negative for any intra-abdominal process with left ovarian cyst slightly increased in size) Assessment and Plan (1) Abdominal pain Narrative/Plan: 24-year-old female with multiple medical comorbidities including prior diagnosis of irritable bowel syndrome and cyclic vomiting who presented with complaints of abdominal pain. She reports worsening right lower quadrant abdominal pain over the past 3 days. She reports some loose bowel movements in association with her abdominal pain. She reports prior episode of Clostridium difficile colitis. She reports nausea and vomiting with the episode. Computed tomography scan of the abdomen negative for any intra-abdominal process. Left ovarian cyst slightly increased in size, not felt to be related to current presentation per the [employer] OPERATOR service. Laboratory evaluation essentially negative except for mildly elevated WBC count, mild elevation in lactic acid and mild elevation of AST and ALTs. Likely related to underlying functional bowel disorder, stool studies will be ordered to rule out recurrent C. diff colitis although this would be an uncommon cause of the patient's right-sided abdominal pain, with ultrasound ordered to rule out other etiology. Current Visit: Yes Status: Acute Code(s): R10.9 - UNSPECIFIED ABDOMINAL PAIN SNOMED Code(s): 17642371 (2) Elevated liver enzymes Current Visit: Yes Status: Acute Code(s): R74.8 - ABNORMAL LEVELS OF OTHER SERUM ENZYMES SNOMED Code(s): 631774249 (3) Diarrhea Current Visit: Yes Status: Acute Code(s): R19.7 - DIARRHEA, UNSPECIFIED SNOMED Code(s): 30269625 (4) IBS (irritable bowel syndrome) Current Visit: Yes Status: Acute Code(s): K58.9 - IRRITABLE BOWEL SYNDROME WITHOUT DIARRHEA SNOMED Code(s): 91657582 Plan: Supportive care Zofran changed [id number] Tigan as needed as needed for breakthrough nausea Protonix twice a day Bentyl 4 times a day 20 mg for abdominal pain Acute viral hepatitis panel ordered due to mildly elevated liver enzymes, likely the result of fatty liver Ultrasound abdomen ordered Thank you for allowing us to participate in the care of the patient
[2020-05-28] MEDS: ONDANSETRON 4 MG/2 ML VIAL IVP SCH ×3 (05:02→17:14)
[2020-05-28] MEDS: SODIUM CHLORIDE 0.9% 1,000 ML IV SCH ×3 (05:03→20:30)
--- NOTE | 2020-05-28 08:11 | US ---
EXAMINATION TYPE: US abdomen complete DATE OF EXAM: 05/28/2020 COMPARISON: CT 05/27/2020 CLINICAL HISTORY: Abdominal pain. generalized EXAM MEASUREMENTS: Liver Length: 11.6 cm Gallbladder Wall: 0.2 cm CBD: 0.4 cm Spleen: 12.4 cm Right Kidney: 11.9 x 3.6 x 6.2 cm Left Kidney: 9.8 x 3.8 x 6.5 cm Pancreas: Tail obscured by overlying bowel gas Liver: wnl Gallbladder: No stones seen, there does appear to be layering sludge. Evidence for sonographic Longo's sign: Yes CBD: wnl Spleen: wnl Right Kidney: No hydronephrosis or masses seen Left Kidney: No hydronephrosis or masses seen Upper IVC: wnl Abd Aorta: wnl IMPRESSION: 1. No evidence of gallstones although there does appear to be extensive gallbladder sludge. No gallbl adder wall thickening or biliary dilation.
[2020-05-28 08:23] LABS: Anisocytosis Slight; Basophils % (A) 0 %; Eosinophils # (A) 0.2 k/uL (0-0.7); Eosinophils % (A) 2 %; HCT 43.3 % (34.0-46.0); HGB 13.5 gm/dL (11.4-16.0); Lymphocytes # (A) 3.9 k/uL (1.0-4.8); Lymphocytes % (A) 39 %; MCH 25.4 pg (25.0-35.0); MCHC 31.1 g/dL (31.0-37.0); MCV 81.5 fL (80.0-100.0); Monocytes # (A) 0.4 k/uL (0-1.0); Monocytes % (A) 4 %; Neutrophils # (A) 5.3 k/uL (1.3-7.7); Neutrophils % (A) 53 %; Platelet Count 181 k/uL (150-450); RBC 5.31 m/uL (3.80-5.40); RDW 16.4 % (11.5-15.5)
[2020-05-28 08:42] LABS: ALT 60 U/L (4-34); AST 35 U/L (14-36); African American GFR (CKD) >90 (>60 ml/min/1.73 sqM); Alkaline Phosphatase 71 U/L (38-126); Anion Gap 10 mmol/L; Blood Urea Nitrogen 5 mg/dL (7-17); Calcium 8.5 mg/dL (8.4-10.2); Carbon Dioxide 20 mmol/L (22-30); Chloride 109 mmol/L (98-107); Glucose 78 mg/dL (74-99); Magnesium 1.7 mg/dL (1.6-2.3); Non-African American GFR(CKD) >90 (>60 ml/min/1.73 sqM); Potassium 3.6 mmol/L (3.5-5.1); Sodium 139 mmol/L (137-145); Total Bilirubin 0.9 mg/dL (0.2-1.3); Total Protein 6.7 g/dL (6.3-8.2)
[2020-05-28] MEDS: HEPARIN SODIUM,PORCINE 5,000 UNIT/ML 1 ML VIAL SQ SCH ×2 (09:03→20:20)
[2020-05-28] MEDS: DICYCLOMINE 10 MG CAP PO SCH (09:04)
[2020-05-28] MEDS: PANTOPRAZOLE 40 MG/10 ML VIAL IV SCH (09:04)
[2020-05-28] MEDS: MORPHINE SULFATE 4 MG/ML SYRINGE IVP PRN ×2 (10:46→20:21)
--- NOTE | 2020-05-28 11:25 | P.PN ---
Subjective This is a pleasant 24 years old female with past medical history of irritable bowel syndrome, gastritis, C. diff infection. Depression, anxiety. Presents because of abdominal pain patient says that abdominal pain started 3 days but early this morning at 1:00 with her from sleep with severe pain. When it went to see the patient she was whirling from pain , crying. Before that she was more comfortable and however she went to have bowel movement followed by the severe pain, her pain mainly in the lower abdomen, nonradiating felt like stabbing. She has frequent vomiting also she had about 3-4 times bowel movement that's watery She denies any vaginal discharge Vital signs stable and patient is afebrile. She has elevated WBC of 14.1 K, e levated lactic acid 2.3 came back to normal at 2.0. Sodium is mildly low at 133, creatinine normal at 0.8. Liver enzymes slightly elevated CT of the abdomen and pelvis: Negative per radiologist, slightly increased left ovarian cyst 05/28/2020 Patient pain is easing down however she still have lower suprapubic abdominal pain especially with the dictation. She has no upper abdominal pain or RUQ tenderness, although ultrasound of the gallbladder was done showing sludge I think this is an incidental finding and is unrelated. Her symptoms mostly related to irritable bowel syndrome. We called HA[employer]ARDOUS SUBSTANCES SCIENTIST consult yesterday since patient has worsening left ovarian cyst but she thinks it is unrelated to her pain. She is currently on Bentyl 20 mg 4 times a day, increased the dose to 40 mg. And GI team on the case as well. Objective - Vital Signs Vital signs: Vital Signs Temp 97.2 F L 05/28/20 08:00 Pulse 57 L 05/28/20 08:00 Resp 11 L 05/28/20 08:00 BP 106/55 05/28/20 08:00 Pulse Ox 98 05/28/20 08:00 Intake & Output 05/27/20 05/28/20 05/28/20 18:59 06:59 18:59 Intake Total 600 600 Balance 600 600 Intake: Intake, IV Titration 600 Amount Sodium Chloride 0.9% 1, 600 000 ml @ 125 mls/hr IV . Q8H [facility] Rx#:[id number] Oral 600 Other: Voiding Method Toilet # Voids 1 - Exam GENERAL: The patient is alert and oriented x3, not in any acute distress. Well developed, well nourished. HEENT: Pupils are round and equally reacting to light. EOMI. No scleral icterus. No conjunctival pallor. Normocephalic, atraumatic. No pharyngeal erythema. No thyromegaly. CARDIOVASCULAR: S1 and S2 present. No murmurs, rubs, or gallops. PULMONARY: Chest is clear to auscultation, no wheezing or crackles. -ABDOMEN: Soft, lower abdomen tender, nondistended, normoactive bowel sounds. No palpable organomegaly. MUSCULOSKELETAL: No joint swelling or deformity. EXTREMITIES: No cyanosis, clubbing, or pedal edema. NEUROLOGICAL: Gross neurological examination did not reveal any focal deficits. SKIN: No rashes. No petechiae - Labs CBC & Chem 7: 05/28/20 07:55 05/28/20 07:55 Labs: Abnormal Lab Results - Last 24 Hours (Table) 05/28/20 05/28/20 Range/Units 07:55 07:55 RDW 16.4 H (11.5-15.5) % Chloride 109 H (98-107) mmol/L Carbon Dioxide 20 L (22-30) mmol/L BUN 5 L (7-17) mg/dL ALT 60 H (4-34) U/L Assessment and Plan Assessment: -Irritable bowel syndrome still has abdominal pain, Bentyl was increased. GI team on the case and they recommended conservative management with Bentyl, Tigan and Zofran. Consult surgery -Mild transaminitis with elevated liver enzymes, improving and almost back to normal -Elevated lactic acid, came back to normal -Mild hypovolemic hyponatremia, continue with IV fluids -Left ovarian cyst, HAZARD[employer] SUBSTANCES SCIENTIST consult evaluated the patient and recommended no intervention for now -Depression, anxiety, but an active issue DVT prophylaxis: Heparin GI prophylaxis Protonix
[2020-05-28] MEDS: DICYCLOMINE 20 MG TAB PO SCH ×3 (12:52→20:20)
--- NOTE | 2020-05-28 16:16 | P.PN ---
Subjective Progress Note Date: 05/28/20 Principal diagnosis: Abdominal pain, history of irritable bowel syndrome Patient is seen lying in bed today. Reports less nausea and vomiting and improved abdominal pain although still present. Objective - Vital Signs Vital signs: Vital Signs Temp 98 F 05/27/20 23:00 Pulse 60 05/28/20 00:00 Resp 17 05/28/20 00:00 BP 106/51 05/27/20 23:00 Pulse Ox 95 05/27/20 23:00 Intake & Output 05/27/20 05/28/20 05/28/20 18:59 06:59 18:59 Intake Total 600 600 Balance 600 600 Intake: Intake, IV Titration 600 Amount Sodium Chloride 0.9% 1, 600 000 ml @ 125 mls/hr IV . Q8H [facility] Rx#:[id number] Oral 600 Other: Voiding Method Toilet # Voids 1 - Exam On physical examination, patient appears comfortable in no apparent distress. HEAD: Normocephalic, atraumatic. EYES: No scleral icterus. No conjunctival injection. MOUTH: No lesions, tongue midline. NECK: Trachea midline, no gross abnormalities. ABDOMEN: Soft, obese. Bowel sounds are positive, mildly tender to palpation. No organomegaly. No guarding or rigidity. EXTREMITIES: No pedal edema. SKIN: No rashes, no jaundice. NEUROLOGIC: Alert and oriented x3. No focal deficits. - Labs CBC & Chem 7: 05/28/20 07:55 05/28/20 07:55 Labs: Abnormal Lab Results - Last 24 Hours (Table) 05/28/20 05/28/20 Range/Units 07:55 07:55 RDW 16.4 H (11.5-15.5) % Chloride 109 H (98-107) mmol/L Carbon Dioxide 20 L (22-30) mmol/L BUN 5 L (7-17) mg/dL ALT 60 H (4-34) U/L Assessment and Plan (1) Abdominal pain Narrative/Plan: 24-year-old female with multiple medical comorbidities including prior diagnosis of irritable bowel syndrome and cyclic vomiting who presented with complaints of abdominal pain. She reports worsening right lower quadrant abdominal pain over the past 3 days. She reports some loose bowel movements in association with her abdominal pain. She reports prior episode of Clostridium difficile colitis. She reports nausea and vomiting with the episode. Computed tomography scan of the abdomen negative for any intra-abdominal process. Left ovarian cyst sl ightly increased in size, not felt to be related to current presentation per the [facility] service. Laboratory evaluation essentially negative except for mildly elevated WBC count, mild elevation in lactic acid and mild elevation of AST and ALTs. Likely related to underlying functional bowel disorder, stool studies will be ordered to rule out recurrent C. diff colitis although this would be an uncommon cause of the patient's right-sided abdominal pain, with ultrasound ordered to rule out other etiology. Current Visit: Yes Status: Acute Code(s): R10.9 - UNSPECIFIED ABDOMINAL PAIN SNOMED Code(s): 00484661 (2) Elevated liver enzymes Current Visit: Yes Status: Acute Code(s): R74.8 - ABNORMAL LEVELS OF OTHER SERUM ENZYMES SNOMED Code(s): 169012471 (3) Diarrhea Current Visit: Yes Status: Acute Code(s): R19.7 - DIARRHEA, UNSPECIFIED SNOMED Code(s): 09363075 (4) IBS (irritable bowel syndrome) Current Visit: Yes Status: Acute Code(s): K58.9 - IRRITABLE BOWEL SYNDROME WITHOUT DIARRHEA SNOMED Code(s): 92699276 Plan: Supportive care Zofran changed [id number] Tigan as needed as needed for breakthrough nausea Protonix twice a day Bentyl 4 times a day 20 mg for abdominal pain Acute viral hepatitis panel ordered due to mildly elevated liver enzymes, likely the result of fatty liver Ultrasound abdomen showed biliary sludge with no choledocholithiasis or other abnormalities Thank you for allowing us to participate in the care of the patient
[2020-05-28] MEDS: TRIMETHOBENZAMIDE 100 MG/ML 2 ML VIAL IM PRN (20:21)
[2020-05-29] MEDS: ONDANSETRON 4 MG/2 ML VIAL IVP SCH ×3 (00:03→11:05)
[2020-05-29] MEDS: MORPHINE SULFATE 4 MG/ML SYRINGE IVP PRN ×3 (01:13→12:12)
[2020-05-29] MEDS: SODIUM CHLORIDE 0.9% 1,000 ML IV SCH ×2 (05:01→11:06)
[2020-05-29 06:40] LABS: Basophils % (A) 0 %; Eosinophils # (A) 0.3 k/uL (0-0.7); Eosinophils % (A) 3 %; HCT 39.5 % (34.0-46.0); Lymphocytes # (A) 3.6 k/uL (1.0-4.8); Lymphocytes % (A) 41 %; MCHC 32.8 g/dL (31.0-37.0); MCV 82.2 fL (80.0-100.0); Mean Platelet Volume 7.7; Monocytes # (A) 0.4 k/uL (0-1.0); Monocytes % (A) 4 %; Neutrophils # (A) 4.6 k/uL (1.3-7.7); Neutrophils % (A) 51 %; Platelet Count 189 k/uL (150-450); RDW 15.8 % (11.5-15.5); WBC 8.9 k/uL (3.8-10.6)
[2020-05-29 06:55] LABS: ALT 47 U/L (4-34); AST 23 U/L (14-36); African American GFR (CKD) >90 (>60 ml/min/1.73 sqM); Albumin 3.6 g/dL (3.5-5.0); Alkaline Phosphatase 60 U/L (38-126); Anion Gap 5 mmol/L; Blood Urea Nitrogen 5 mg/dL (7-17); Calcium 8.6 mg/dL (8.4-10.2); Carbon Dioxide 25 mmol/L (22-30); Chloride 108 mmol/L (98-107); Glucose 83 mg/dL (74-99); Magnesium 1.8 mg/dL (1.6-2.3); Non-African American GFR(CKD) >90 (>60 ml/min/1.73 sqM); Potassium 3.6 mmol/L (3.5-5.1); Sodium 138 mmol/L (137-145); Total Bilirubin 0.7 mg/dL (0.2-1.3); Total Protein 6.2 g/dL (6.3-8.2)
[2020-05-29] MEDS: DICYCLOMINE 20 MG TAB PO SCH ×2 (08:02→11:05)
[2020-05-29] MEDS: PANTOPRAZOLE 40 MG/10 ML VIAL IV SCH (08:02)
[2020-05-29] MEDS: HEPARIN SODIUM,PORCINE 5,000 UNIT/ML 1 ML VIAL SQ SCH (08:03)
[2020-05-29 08:10] VITALS: BP 130/90; PULSE 58; RESP 12; TEMP 97.6
[2020-05-29 14:44] LABS: Hepatitis A Antibody IgM Non-Reactive (Non-Reactive); Hepatitis B Core IgM Non-Reactive (Non-Reactive); Hepatitis B Surface Antigen Non-Reactive (Non-Reactive); Hepatitis C IgG Antibody Non-Reactive (Non-Reactive)
--- NOTE | 2020-05-29 14:47 | P.DS ---
Providers Date of admission: 05/27/20 05:21 Attending physician: Xochitl Packer Consults: 05/27/20 05:22 Consult Physician Routine Consulting Provider: Phuc Moore Consult Reason/Comments: IBS, intractible abdominal pain Do you want consulting provider notified?: Yes 05/27/20 14:46 Consult Physician Urgent Consulting Provider: Tabatha Pimentel Consult Reason/Comments: ovarian cyst/pain Do you want consulting provider notified?: Yes Primary care physician: Stated None Hospital Course: 24-year-old female came in with the nausea vomiting and severe abdominal pain with bowel movement. Patient has known history of irritable bowel syndrome and her symptoms were believed to be secondary to irritable bowel syndrome with gastro-oncology evaluated the patient patient doesn't have any more nausea vo miting but still complaining of severe pain upon bowel movement. Gastric large recommended Bentyl and the patient is clinically doing well at this time will be discharged today on Bentyl and patient does have Zofran for nausea vomiting. PHYSICAL EXAMINATION: GENERAL: The patient is alert and oriented x3, not in any acute distress. Obese HEENT: Pupils are round and equally reacting to light. EOMI. No scleral icterus. No conjunctival pallor. Normocephalic, atraumatic. No pharyngeal erythema. No thyromegaly. CARDIOVASCULAR: S1 and S2 present. No murmurs, rubs, or gallops. PULMONARY: Chest is clear to auscultation, no wheezing or crackles. ABDOMEN: Soft, nontender, nondistended, normoactive bowel sounds. No palpable organomegaly. MUSCULOSKELETAL: No joint swelling or deformity. EXTREMITIES: No cyanosis, clubbing, or pedal edema. NEUROLOGICAL: Gross neurological examination did not reveal any focal deficits. SKIN: No rashes. The rest of the medical problems and hospitalization course please refer to the progress note from Dr. raymond from yesterday Patient Condition at Discharge: Stable Plan - Discharge Summary Discharge Rx Participant: No New Discharge Prescriptions: New Dicyclomine [Bentyl] 40 mg PO QID PRN #60 tab PRN Reason: Diarrhea Continue Ondansetron Odt [Zofran ODT] 4 mg PO Q8HR PRN #10 tab PRN Reason: Nausea Discharge Medication List Ondansetron Odt [Zofran ODT] 4 mg PO Q8HR PRN #10 tab 05/25/20 [Rx] Dicyclomine [Bentyl] 40 mg PO QID PRN #60 tab 05/29/20 [Rx] Follow up Appointment(s)/Referral(s): Yanique Zamarripa MD [STAFF PHYSICIAN] - 1 Week (Not in there system you will have to call to make a follow up with a primary care doctor) Patient Instructions/Handouts: Acute Abdominal Pain (DC) Discharge/Stand Alone Forms: Work/School Release / Restrict Discharge Disposition: HOME SELF-CARE
--- NOTE | 2020-05-29 16:04 | PN ---
PROGRESS NOTE DATE OF SERVICE: 05/29/2020 Patient is a 24-year-old pleasant white female with history of IBS, admitted to the hospital with severe abdominal pain, associated with diarrhea, has been going on for the last few days duration. This morning she is still complaining of right lower quadrant abdominal pain. No further episodes of nausea, vomiting. She had 3 loose watery bowel movements yesterday. None so far this morning. No rectal bleeding. CT of the abdomen done at the time of admission to the hospital was unremarkable other than a small left ovarian cyst. She was also noted to have mild elevation of serum transaminases and hence had an ultrasound of the abdomen done yesterday that was unremarkable. PHYSICAL EXAMINATION: She appears comfortable, in no apparent distress. Vital signs are stable, blood pressure is 112/86, pulse rate 58, temperature 98. HEENT: Examination unremarkable, conjunctivae are pink, sclerae nonicteric, oral cavity no lesions. NECK: No JVD or lymph node enlargement. CHEST: Clear to auscultation. HEART: Regular rate and rhythm. ABDOMEN: Soft. There was tenderness in the right lower quadrant area. Rest of the abdomen benign. EXTREMITIES: No pedal edema. SKIN: No rashes. NEUROLOGIC: Alert and oriented. No focal deficits. LABS: From today WBC 8.9, hemoglobin 13, platelets normal. Rest of the basic metabolic panel is within normal limits. AST and ALT at 35 and 60 respectively, today it is 23 and 47 respectively. IMPRESSION: 1. Abdominal pain, right-sided abdominal pain for the last 3 days duration in this patient with history of irritable bowel syndrome. She continues to have chronic diarrhea with occasional constipation. Remains on Bentyl 40 mg q.6 hours. Still remains symptomatic. CT of the abdomen was unremarkable and so was ultrasound of the gallbladder that was unremarkable. 2. Minimal elevation of serum transaminases, gradually improving. Possibly, she may have a component of fatty infiltration of the liver. RECOMMENDATIONS: 1. Continue with symptomatic and supportive care. 2. Patient already on Bentyl 40 mg q.6 hours, which can be continued. 3. Imodium as needed for the diarrhea. 4. Advance diet as tolerated. 5. No plans on any endoscopic intervention. Thank you for this consultation. MMODL / IJN: [id number] /
== END 2020-05-29 14:29 | disposition home or self-care (01) ==
LOC: EC 02:56 → 1SOBS 05:21
PROVIDERS: ADMIT Hospitalist; ATTEND Hospitalist
DX: K58.0 Irritable bowel syndrome with diarrhea (principal); N83.202 Unspecified ovarian cyst, left side; E87.1 Hypo-osmolality and hyponatremia; E86.1 Hypovolemia; R11.15 Cyclical vomiting syndrome unrelated to migraine; R74.8 Abnormal levels of other serum enzymes; R79.89 Other specified abnormal findings of blood chemistry; Z03.818 Encounter for observation for suspected exposure to other biological agents ruled out; R74.0 Nonspecific elevation of levels of transaminase and lactic acid dehydrogenase [LDH]; F41.9 Anxiety disorder, unspecified; G89.29 Other chronic pain; F32.9 Major depressive disorder, single episode, unspecified; E66.9 Obesity, unspecified; Z68.41 Body mass index [BMI] 40.0-44.9, adult; F12.90 Cannabis use, unspecified, uncomplicated; Z79.899 Other long term (current) drug therapy; Z16.24 Resistance to multiple antibiotics; Z86.19 Personal history of other infectious and parasitic diseases; Z87.19 Personal history of other diseases of the digestive system; Z98.891 History of uterine scar from previous surgery; Z82.5 Family history of asthma and other chronic lower respiratory diseases; Z82.49 Family history of ischemic heart disease and other diseases of the circulatory system
CPT/HCPCS: 96365; 96372 ×3; 96375 ×2; 96376 ×4; 96361; 99285; 36415; 80053 ×3; 80074; 82150; 83605; 83690; 83735 ×2; 85025 ×3; 86140; 81001; 84703; 84145; 76700; 74177; G0378 ×3; U0003; J2270 ×3; J1200; J1644 ×3; J3250 ×2; J2405 ×3; J1956; C9113 ×3; Q9967

== ENCOUNTER 2020-06-03 18:02 | Inpatient (IN) | payer OTHER ==
[2020-06-03] MEDS ORDERED: SODIUM CHLORIDE 0.9% 1,000 ML IV STA (18:26)
[2020-06-03] MEDS ORDERED: SODIUM CHLORIDE 0.9% 2,000 ML IV STA (18:26)
[2020-06-03] MEDS ORDERED: PANTOPRAZOLE 40 MG/10 ML VIAL IVP STA (18:26)
[2020-06-03] MEDS ORDERED: HYDROmorphone 1 MG/ML 1 ML SYRINGE IVP STA ×3 (18:26→22:29)
[2020-06-03] MEDS ORDERED: ONDANSETRON 4 MG/2 ML VIAL IVP STA ×2 (18:26→22:29)
[2020-06-03] MEDS ORDERED: KETOROLAC 30 MG/ML 1 ML VIAL IVP STA (18:26)
--- NOTE | 2020-06-03 18:35 | ED ---
Nausea/Vomiting/Diarrhea HPI - General Source: patient, RN notes reviewed, old records reviewed Mode of arrival: wheelchair Limitations: no limitations <Brittnee Harley - Last Filed: 06/04/20 01:13> <Les Frias - Last Filed: 06/04/20 08:13> - General Chief complaint: Nausea/Vomiting/Diarrhea Stated complaint: abd/vag pain/vomiting Time Seen by Provider: 06/03/20 18:19 - History of Present Illness Initial comments: Patient is a 4-year-old female presents to return today with complaints of left- sided abdominal pain and vaginal pain. She's been to the emergency department multiple times at this hospital as well as had admission [facility] this week for similiar episodes. She is told to follow up with the GI doctor and symptoms were from IBS, but has not had the opportunity and make an appointment. Patient complains today of worsening pelvic and vaginal pain and complains of being with urination. She denies any significant back pain. Patient reports that she has not had frequency with urination or UTI like symptoms. She denies current vaginal bleeding or discharge. (Brittnee Harley) - Related Data Previous Rx's Medication Instructions Recorded Ondansetron Odt [Zofran ODT] 4 mg PO Q8HR PRN #10 tab 05/25/20 Dicyclomine [Bentyl] 40 mg PO QID PRN #60 tab 05/29/20 Allergies Allergy/AdvReac Type Severity Reaction Status Date / Time amoxicillin Allergy Unknown Verified 06/03/20 23:36 Review of Systems ROS Other: All systems not noted in ROS Statement are negative. <Brittnee Harley - Last Filed: 06/04/20 01:13> ROS Other: All systems not noted in ROS Statement are negative. <Les Frias - Last Filed: 06/04/20 08:13> ROS Statement: Those systems with pertinent positive or pertinent negative responses have been documented in the HPI. Past Medical History Additional Past Medical History / Comment(s): IBS, gastritis, hernia History of Any Multi-Drug Resistant Organisms: C-DIFF Date of last positivie culture/infection: 2017 MDRO Source:: antibotics Additional Past Surgical History / Comment(s): Ureter tube surgery Past Anesthesia/Blood Transfusion Reactions: No Reported Reaction Past Psychological History: Anxiety, Depression Smoking Status: Never smoker Past Alcohol Use History: Occasional Past Drug Use History: Marijuana - Past Family History Mother Family Medical History: Asthma, Hypertension <Brittnee Harley - Last Filed: 06/04/20 01:13> General Exam Limitations: no limitations General appearance: alert, in no apparent distress Head exam: Present: atraumatic, normocephalic, normal inspection Eye exam: Present: normal appearance, PERRL, EOMI. Absent: scleral icterus, conjunctival injection, periorbital swelling ENT exam: Present: normal exam, mucous membranes moist Neck exam: Present: normal inspection. Absent: tenderness, meningismus, lymphadenopathy Respiratory exam: Present: normal lung sounds bilaterally. Absent: respiratory distress, wheezes, rales, rhonchi, stridor Cardiovascular Exam: Present: regular rate, normal rhythm, normal heart sounds. Absent: systolic murmur, diastolic murmur, rubs, gallop, clicks GI/Abdominal exam: Present: soft, tenderness (LLQ tenderness suprapubic tenderness), normal bowel sounds. Absent: distended, guarding, rebound, rigid External exam: Present: normal external exam Speculum exam: Absent: normal speculum exam (significant pain and tenderness w ith insertion of speculum) By manual exam: Present: adnexal tenderness (left adnexal tenderness) Extremities exam: Present: normal inspection, full ROM, normal capillary refill. Absent: tenderness, pedal edema, joint swelling, calf tenderness Back exam: Present: normal inspection Neurological exam: Present: alert, oriented X3, CN II-XII intact Psychiatric exam: Present: normal affect, normal mood Skin exam: Present: warm, dry, intact, normal color. Absent: rash <Brittnee Harley - Last Filed: 06/04/20 01:13> - General Exam Comments Initial Comments: 24-year-old female. Retching vomiting. Patient appears in severe discomfort. Yelling and screaming. (Brittnee Harley) Course <Les Frias - Last Filed: 06/04/20 08:13> Vital Signs 06/03/20 06/03/20 06/03/20 18:07 19:41 22:35 Temperature 98.8 F 98.8 F Pulse Rate 97 65 79 Respiratory 20 18 18 Rate Blood Pressure 145/106 118/82 132/76 O2 Sat by Pulse 97 99 99 Oximetry 06/04/20 00:10 Temperature 98.8 F Pulse Rate 71 Respiratory 15 Rate Blood Pressure 133/59 O2 Sat by Pulse 99 Oximetry - Reevaluation(s) Reevaluation #1: 06/04/20 01:45 This case was presented to me at approximately 12:30 when the studies were back. Case had been discussed with previous physician. I reviewed the studies. I went and evaluated the patient at the bedside. Given the inability to visualize arterial flow to the patient's ovary, I did discuss case with Dr. Alex for who is covering for Dr. Pimentel who has seen the patient previously. (Les Frias) Medical Decision Making - Lab Data Result diagrams: 06/03/20 18:30 06/03/20 18:30 - Radiology Data Radiology results: report reviewed <Brittnee Harley - Last Filed: 06/04/20 01:13> - Lab Data Result diagrams: 06/03/20 18:30 06/03/20 18:30 <Les Frias - Last Filed: 06/04/20 08:13> - Medical Decision Making 24-year-old female presents emergency department today with severe lower abdominal pain nausea and vomiting today, she has been having intermittent symp toms through the week and had 2 previous admission for pain. Patient appeared in significant distress and writhing around the room and retching. Patient was able to urinate right away, and urine sample showed significant hematuria. Initial concern was patient's presentation and hematuria was concerning for a ureteral stone. She did have multiple CT scans with contrast this week and was admitted for this abdominal pain for the past week. Patient did have a previous left ovarian cyst and was evaluated by Dr. Pimentel at that time measured 2cm. At this time we opted to do renal ultrasound vs CT scan, which showed a cystic complex lesion in the midline by the uterus. Concern for possible pelvic abscess versus ovarian cyst or hemorrhagic cyst. With these findings and labs I discussed the case initially with Dr. Ponce. Recommended getting a computed tomography scan. Initial CT read demonstrated a normal computed tomography scan however my review of the images still showed this large cystic mass. Addendum shows a 6 cm thin-walled likely ovarian cyst. Ultrasound was completed which showed the cyst, but difficult with visualizing blood flow and cannot rule out torsion. I then discussed with Dr. Rhodes will discuss case with on-call SYSTEM PLANNING ENGINEER. After multiple rounds of pain medication she is resting comfortably in bed., but her pain is more severe when she gets up to urinate. She had no vaginal bleeding or vaginal discharge on pelvic exam. She had significant left adnexal tenderness. Patient will be admitted to Dr. Alex. (Brittnee Harley) - Lab Data Lab Results 06/03/20 06/03/20 06/03/20 Range/Units 18:30 18:30 18:30 WBC 12.4 H (3.8-10.6) k/uL RBC 5.46 H (3.80-5.40) m/uL Hgb 14.1 (11.4-16.0) gm/dL Hct 43.7 (34.0-46.0) % MCV 79.9 L (80.0-100.0) fL MCH 25.9 (25.0-35.0) pg MCHC 32.4 (31.0-37.0) g/dL RDW 16.1 H (11.5-15.5) % Plt Count 305 (150-450) k/uL Neutrophils % 72 % Lymphocytes % 20 % Monocytes % 4 % Eosinophils % 2 % Basophils % 0 % Neutrophils # 9.0 H (1.3-7.7) k/uL Lymphocytes # 2.5 (1.0-4.8) k/uL Monocytes # 0.5 (0-1.0) k/uL Eosinophils # 0.3 (0-0.7) k/uL Basophils # 0.0 (0-0.2) k/uL Anisocytosis Slight Microcytosis Slight PT 11.2 (9.0-12.0) sec INR 1.1 (<1.2) APTT 24.5 (22.0-30.0) sec Sodium (137-145) mmol/L Potassium (3.5-5.1) mmol/L Chloride (98-107) mmol/L Carbon Dioxide (22-30) mmol/L Anion Gap mmol/L BUN (7-17) mg/dL Creatinine (0.52-1.04) mg/dL Est GFR (CKD-EPI)AfAm (>60 ml/min/1.73 sqM) Est GFR (CKD-EPI)NonAf (>60 ml/min/1.73 sqM) Glucose (74-99) mg/dL Lactic Ac Sepsis Rflx Plasma Lactic Acid Ric (0.7-2.0) mmol/L Calcium (8.4-10.2) mg/dL Total Bilirubin (0.2-1.3) mg/dL AST (14-36) U/L ALT (4-34) U/L Alkaline Phosphatase (38-126) U/L Total Protein (6.3-8.2) g/dL Albumin (3.5-5.0) g/dL Amylase (30-110) U/L Lipase (23-300) U/L Urine Color Red Urine Appearance Cloudy H (Clear) Urine pH 8.5 H (5.0-8.0) Ur Specific [place] 1.022 (1.001-1.035) Urine Protein 2+ H (Negative) Urine Glucose (UA) Negative (Negative) Urine Ketones 2+ H (Negative) Urine Blood Large H (Negative) Urine Nitrite Negative (Negative) Urine Bilirubin Negative (Negative) Urine Urobilinogen <2.0 (<2.0) mg/dL Ur Leukocyte Esterase Trace H (Negative) Urine RBC >182 H (0-5) /hpf Urine WBC 1 (0-5) /hpf Ur Squamous Epith Cells 4 (0-4) /hpf Urine Bacteria Rare H (None) /hpf Urine Mucus Many H (None) /hpf Urine HCG, Qual (Not Detectd) Urine Opiates Screen (NotDetected) Ur Oxycodone Screen (NotDetected) Urine Methadone Screen (NotDetected) Ur Propoxyphene Screen (NotDetected) Ur Barbiturates Screen (NotDetected) U Tricyclic Antidepress (NotDetected) Ur Phencyclidine Scrn (NotDetected) Ur Amphetamines Screen (NotDetected) U Methamphetamines Scrn (NotDetected) U Benzodiazepines Scrn (NotDetected) Urine Cocaine Screen (NotDetected) U Marijuana (THC) Screen (NotDetected) Trichomonas Ag (Rapid) (Negative) 06/03/20 06/03/20 06/03/20 Range/Units 18:30 18:30 18:30 WBC (3.8-10.6) k/uL RBC (3.80-5.40) m/uL Hgb (11.4-16.0) gm/dL Hct (34.0-46.0) % MCV (80.0-100.0) fL MCH (25.0-35.0) pg MCHC (31.0-37.0) g/dL RDW (11.5-15.5) % Plt Count (150-450) k/uL Neutrophils % % Lymphocytes % % Monocytes % % Eosinophils % % Basophils % % Neutrophils # (1.3-7.7) k/uL Lymphocytes # (1.0-4.8) k/uL Monocytes # (0-1.0) k/uL Eosinophils # (0-0.7) k/uL Basophils # (0-0.2) k/uL Anisocytosis Microcytosis PT (9.0-12.0) sec INR (<1.2) APTT (22.0-30.0) sec Sodium 138 (137-145) mmol/L Potassium 4.0 (3.5-5.1) mmol/L Chloride 106 (98-107) mmol/L Carbon Dioxide 18 L (22-30) mmol/L Anion Gap 14 mmol/L BUN 6 L (7-17) mg/dL Creatinine 0.72 (0.52-1.04) mg/dL Est GFR (CKD-EPI)AfAm >90 (>60 ml/min/1.73 sqM) Est GFR (CKD-EPI)NonAf >90 (>60 ml/min/1.73 sqM) Glucose 113 H (74-99) mg/dL Lactic Ac Sepsis Rflx Plasma Lactic Acid Ric 2.1 H* (0.7-2.0) mmol/L Calcium 10.0 (8.4-10.2) mg/dL Total Bilirubin 0.8 (0.2-1.3) mg/dL AST 25 (14-36) U/L ALT 25 (4-34) U/L Alkaline Phosphatase 82 (38-126) U/L Total Protein 7.5 (6.3-8.2) g/dL Albumin 4.7 (3.5-5.0) g/dL Amylase 39 (30-110) U/L Lipase 63 (23-300) U/L Urine Color Urine Appearance (Clear) Urine pH (5.0-8.0) Ur Specific [place] (1.001-1.035) Urine Protein (Negative) Urine Glucose (UA) (Negative) Urine Ketones (Negative) Urine Blood (Negative) Urine Nitrite (Negative) Urine Bilirubin (Negative) Urine Urobilinogen (<2.0) mg/dL Ur Leukocyte Esterase (Negative) Urine RBC (0-5) /hpf Urine WBC (0-5) /hpf Ur Squamous Epith Cells (0-4) /hpf Urine Bacteria (None) /hpf Urine Mucus (None) /hpf Urine HCG, Qual Not Detected (Not Detectd) Urine Opiates Screen (NotDetected) Ur Oxycodone Screen (NotDetected) Urine Methadone Screen (NotDetected) Ur Propoxyphene Screen (NotDetected) Ur Barbiturates Screen (NotDetected) U Tricyclic Antidepress (NotDetected) Ur Phencyclidine Scrn (NotDetected) Ur Amphetamines Screen (NotDetected) U Methamphetamines Scrn (NotDetected) U Benzodiazepines Scrn (NotDetected) Urine Cocaine Screen (NotDetected) U Marijuana (THC) Screen (NotDetected) Trichomonas Ag (Rapid) (Negative) 06/03/20 06/03/20 06/03/20 Range/Units 18:30 19:03 21:12 WBC (3.8-10.6) k/uL RBC (3.80-5.40) m/uL Hgb (11.4-16.0) gm/dL Hct (34.0-46.0) % MCV (80.0-100.0) fL MCH (25.0-35.0) pg MCHC (31.0-37.0) g/dL RDW (11.5-15.5) % Plt Count (150-450) k/uL Neutrophils % % Lymphocytes % % Monocytes % % Eosinophils % % Basophils % % Neutrophils # (1.3-7.7) k/uL Lymphocytes # (1.0-4.8) k/uL Monocytes # (0-1.0) k/uL Eosinophils # (0-0.7) k/uL Basophils # (0-0.2) k/uL Anisocytosis Microcytosis PT (9.0-12.0) sec INR (<1.2) APTT (22.0-30.0) sec Sodium (137-145) mmol/L Potassium (3.5-5.1) mmol/L Chloride (98-107) mmol/L Carbon Dioxide (22-30) mmol/L Anion Gap mmol/L BUN (7-17) mg/dL Creatinine (0.52-1.04) mg/dL Est GFR (CKD-EPI)AfAm (>60 ml/min/1.73 sqM) Est GFR (CKD-EPI)NonAf (>60 ml/min/1.73 sqM) Glucose (74-99) mg/dL Lactic Ac Sepsis Rflx Y Plasma Lactic Acid Ric 1.6 (0.7-2.0) mmol/L Calcium (8.4-10.2) mg/dL Total Bilirubin (0.2-1.3) mg/dL AST (14-36) U/L ALT (4-34) U/L Alkaline Phosphatase (38-126) U/L Total Protein (6.3-8.2) g/dL Albumin (3.5-5.0) g/dL Amylase (30-110) U/L Lipase (23-300) U/L Urine Color Urine Appearance (Clear) Urine pH (5.0-8.0) Ur Specific [place] (1.001-1.035) Urine Protein (Negative) Urine Glucose (UA) (Negative) Urine Ketones (Negative) Urine Blood (Negative) Urine Nitrite (Negative) Urine Bilirubin (Negative) Urine Urobilinogen (<2.0) mg/dL Ur Leukocyte Esterase (Negative) Urine RBC (0-5) /hpf Urine WBC (0-5) /hpf Ur Squamous Epith Cells (0-4) /hpf Urine Bacteria (None) /hpf Urine Mucus (None) /hpf Urine HCG, Qual (Not Detectd) Urine Opiates Screen Detected H (NotDetected) Ur Oxycodone Screen Not Detected (NotDetected) Urine Methadone Screen Not Detected (NotDetected) Ur Propoxyphene Screen Not Detected (NotDetected) Ur Barbiturates Screen Not Detected (NotDetected) U Tricyclic Antidepress Not Detected (NotDetected) Ur Phencyclidine Scrn Not Detected (NotDetected) Ur Amphetamines Screen Not Detected (NotDetected) U Methamphetamines Scrn Not Detected (NotDetected) U Benzodiazepines Scrn Detected H (NotDetected) Urine Cocaine Screen Not Detected (NotDetected) U Marijuana (THC) Screen Detected H (NotDetected) Trichomonas Ag (Rapid) (Negative) 06/03/20 Range/Units 23:38 WBC (3.8-10.6) k/uL RBC (3.80-5.40) m/uL Hgb (11.4-16.0) gm/dL Hct (34.0-46.0) % MCV (80.0-100.0) fL MCH (25.0-35.0) pg MCHC (31.0-37.0) g/dL RDW (11.5-15.5) % Plt Count (150-450) k/uL Neutrophils % % Lymphocytes % % Monocytes % % Eosinophils % % Basophils % % Neutrophils # (1.3-7.7) k/uL Lymphocytes # (1.0-4.8) k/uL Monocytes # (0-1.0) k/uL Eosinophils # (0-0.7) k/uL Basophils # (0-0.2) k/uL Anisocytosis Microcytosis PT (9.0-12.0) sec INR (<1.2) APTT (22.0-30.0) sec Sodium (137-145) mmol/L Potassium (3.5-5.1) mmol/L Chloride (98-107) mmol/L Carbon Dioxide (22-30) mmol/L Anion Gap mmol/L BUN (7-17) mg/dL Creatinine (0.52-1.04) mg/dL Est GFR (CKD-EPI)AfAm (>60 ml/min/1.73 sqM) Est GFR (CKD-EPI)NonAf (>60 ml/min/1.73 sqM) Glucose (74-99) mg/dL Lactic Ac Sepsis Rflx Plasma Lactic Acid Ric (0.7-2.0) mmol/L Calcium (8.4-10.2) mg/dL Total Bilirubin (0.2-1.3) mg/dL AST (14-36) U/L ALT (4-34) U/L Alkaline Phosphatase (38-126) U/L Total Protein (6.3-8.2) g/dL Albumin (3.5-5.0) g/dL Amylase (30-110) U/L Lipase (23-300) U/L Urine Color Urine Appearance (Clear) Urine pH (5.0-8.0) Ur Specific [place] (1.001-1.035) Urine Protein (Negative) Urine Glucose (UA) (Negative) Urine Ketones (Negative) Urine Blood (Negative) Urine Nitrite (Negative) Urine Bilirubin (Negative) Urine Urobilinogen (<2.0) mg/dL Ur Leukocyte Esterase (Negative) Urine RBC (0-5) /hpf Urine WBC (0-5) /hpf Ur Squamous Epith Cells (0-4) /hpf Urine Bacteria (None) /hpf Urine Mucus (None) /hpf Urine HCG, Qual (Not Detectd) Urine Opiates Screen (NotDetected) Ur Oxycodone Screen (NotDetected) Urine Methadone Screen (NotDetected) Ur Propoxyphene Screen (NotDetected) Ur Barbiturates Screen (NotDetected) U Tricyclic Antidepress (NotDetected) Ur Phencyclidine Scrn (NotDetected) Ur Amphetamines Screen (NotDetected) U Methamphetamines Scrn (NotDetected) U Benzodiazepines Scrn (NotDetected) Urine Cocaine Screen (NotDetected) U Marijuana (THC) Screen (NotDetected) Trichomonas Ag (Rapid) Negative (Negative) 06/03/20 20:18 EKG performed at 1907 shows sinus rhythm with sinus arrhythmia short ME. Otherwise normal EKG. Ventricular rate of 63 bpm. Verbal is 102 ms. QS duration is 90 ms. QT QTc is 410/419 ms. (Brittnee Harley) - Radiology Data X-ray shows a nonacute abdomen. No change compared old exam. Renal ultrasound shows no evidence of renal mass or obstruction. Large complex cystic fluid collection in the pelvis is new compared to CT on 74. Suggest pelvic abscess or hemorrhagic ovarian cyst. Endometriosis is possible. CT 100 and pelvis shows a 6 cm thin-walled Lodosyn density cystic mass in the pelvis midline above the uterus probably from the left ovary is either a new cyst or significantly increased size of cyst compared to last exam 7 days ago. Transvaginal ultrasound shows a 5 x 6 cm thin-walled cystic mass in the midline pelvis slightly to the left side. He was internal echoes. This is a complex cyst. No free fluid. Normal uterus and endometrium. The largest appears to be the same cyst that measured 2.5 cm on previous ultrasound. Therefore left ovarian torsion cannot be excluded. No evidence of right-sided ovarian torsion. No unable to demonstrate arterial blood flow in the left ovary but this large cyst obscures the left ovary. (Brittnee Harley) Disposition Is patient prescribed a controlled substance at d/c from ED?: No Time of Disposition: 01:18 <Brittnee Harley - Last Filed: 06/04/20 01:13> <Les Frias - Last Filed: 06/04/20 08:13> Clinical Impression: Ovarian cyst Condition: Stable
[2020-06-03 18:43] LABS: Anisocytosis Slight; Basophils % (A) 0 %; Eosinophils # (A) 0.3 k/uL (0-0.7); Eosinophils % (A) 2 %; HCT 43.7 % (34.0-46.0); HGB 14.1 gm/dL (11.4-16.0); Lymphocytes # (A) 2.5 k/uL (1.0-4.8); Lymphocytes % (A) 20 %; MCH 25.9 pg (25.0-35.0); MCHC 32.4 g/dL (31.0-37.0); MCV 79.9 fL (80.0-100.0); Microcytosis Slight; Monocytes # (A) 0.5 k/uL (0-1.0); Monocytes % (A) 4 %; Neutrophils % (A) 72 %; Platelet Count 305 k/uL (150-450); RBC 5.46 m/uL (3.80-5.40); RDW 16.1 % (11.5-15.5); WBC 12.4 k/uL (3.8-10.6)
[2020-06-03 18:49] LABS: Appearance,Urine Cloudy (Clear); Bacteria,Urine Rare /hpf; Bilirubin,Urine Negative (Negative); Blood,Urine Large (Negative); Color,Urine Red; Glucose,Urine (UA) Negative (Negative); Ketones,Urine 2+ (Negative); Leukocyte Esterase,Urine Trace (Negative); Mucus,Urine Many /hpf; Nitrite,Urine Negative (Negative); PH, Urine 8.5 (5.0-8.0); Protein,Urine 2+ (Negative); RBC,Urine >182 /hpf (0-5); Specific Gravity,Urine 1.022 (1.001-1.035); Squamous Epithelial Cell,Urine 4 /hpf (0-4); Urobilinogen,Urine <2.0 mg/dL (<2.0); WBC,Urine 1 /hpf (0-5)
[2020-06-03 18:54] LABS: INR 1.1 (<1.2); Partial Thromboplastin Time 24.5 sec (22.0-30.0); Prothrombin Time 11.2 sec (9.0-12.0)
[2020-06-03 18:56] LABS: ALT 25 U/L (4-34); AST 25 U/L (14-36); African American GFR (CKD) >90 (>60 ml/min/1.73 sqM); Albumin 4.7 g/dL (3.5-5.0); Alkaline Phosphatase 82 U/L (38-126); Amylase 39 U/L (30-110); Anion Gap 14 mmol/L; Blood Urea Nitrogen 6 mg/dL (7-17); Carbon Dioxide 18 mmol/L (22-30); Chloride 106 mmol/L (98-107); Glucose 113 mg/dL (74-99); Non-African American GFR(CKD) >90 (>60 ml/min/1.73 sqM); Sodium 138 mmol/L (137-145); Total Bilirubin 0.8 mg/dL (0.2-1.3); Total Protein 7.5 g/dL (6.3-8.2)
[2020-06-03] MEDS ORDERED: METOCLOPRAMIDE 5 MG/ML 2 ML VIAL IVP STA (19:24)
[2020-06-03] MEDS ORDERED: diphenhydrAMINE 50 MG/ML 1 ML VIAL IVP STA (19:24)
--- NOTE | 2020-06-03 20:22 | XR ---
EXAMINATION TYPE: XR KUB DATE OF EXAM: 06/03/2020 COMPARISON: 03/06/2018 HISTORY: Left abdominal pain TECHNIQUE: 2 views upright FINDINGS: There is no sign of intestinal obstruction or pneumoperitoneum. Fecal pattern is normal. Th ere is no evidence of a mass. Lung bases are clear. There are no pathologic calcifications over the k idneys. IMPRESSION: Nonacute abdomen. No change compared to old exam.
--- NOTE | 2020-06-03 20:55 | US ---
EXAMINATION TYPE: US renals and bladder DATE OF EXAM: 06/03/2020 COMPARISON: NONE CLINICAL HISTORY: hematuria. hematuria with pelvic pain, patient vomited after exam, no previous baron l history EXAM MEASUREMENTS: Right Kidney: 11.2 x 5.3 x 5.6 cm Left Kidney: 9.6 x 3.4 x 4.0 cm Right Kidney: No hydronephrosis or masses seen Left Kidney: No hydronephrosis or masses seen Bladder: wnl *6.5 x 5.8 x 4.7cm cystic lesion with internal debris is noted superior and midline to uterus and burak dder. Patient had prior CT and US that resulted with small left ovarian cyst, unable to discern if th is area seen today is related to ovarian pathology or not. IMPRESSION: No evidence of renal mass or obstruction. Large complex cystic fluid collection in the pelvis appears new compared to CT scan of 05/27/2020. I wo uld consider possibilities of pelvic abscess and hemorrhagic ovarian cyst. Endometriosis also possibl e.
[2020-06-03 21:19] LABS: Amphetamine Screen,Urine Not Detected (NotDetected); Barbiturate Screen,Urine Not Detected (NotDetected); Benzodiazepines Screen,Urine Detected (NotDetected); Cocaine Screen,Urine Not Detected (NotDetected); Methadone Screen, Urine Not Detected (NotDetected); Opiate Screen,Urine Detected (NotDetected); Oxycodone Screen, Urine Not Detected (NotDetected); Phencyclidine Screen,Urine Not Detected (NotDetected); Tricyclic Antidepressant,Urine Not Detected (NotDetected); Urn Cannabinoid Scrn Detected (NotDetected)
--- NOTE | 2020-06-03 22:42 | CT ---
EXAMINATION TYPE: CT abdomen pelvis w con DATE OF EXAM: 06/03/2020 COMPARISON: 05/27/2020 HISTORY: Abdominal pain and vomiting CT DLP: 1957.3 mGycm Automated exposure control for dose reduction was used. CONTRAST: Performed with IV Contrast, patient injected with 100 mL of Isovue 300. Lung bases are clear. There is no pleural effusion. Heart size is normal. There is no pericardial eff usion. There is small hiatal hernia. The remainder of the stomach is intact. Liver spleen pancreas gallbladd er appear normal. Bile ducts are not dilated. There is no adrenal mass. Kidneys show satisfactory contrast opacification. There is no hydronephrosi s. There is normal excretion on the delayed images. There is no retroperitoneal adenopathy. Ureters a re not dilated. Bladder distends smoothly. There is no inguinal hernia. Uterus is anteverted. Lumbar vertebra have normal spacing and alignment. Posterior elements are intact. Bony pelvis is intact. Hip joints appear normal. Appendix is posterior and medial and appears normal. There is no mesenteric edema. There is no ascite s or free air. There is no sign of a bowel obstruction. IMPRESSION: Negative CT scan abdomen and pelvis. There is clearing of the cyst on the left ovary compared to rece nt exam. Normal appendix.
--- NOTE | 2020-06-04 | US ---
EXAMINATION TYPE: US transvaginal DATE OF EXAM: 06/03/2020 COMPARISON: NONE CLINICAL HISTORY: left ovarian cyst. h/o small left ovarian cyst 10 days ago, extreme pelvic pain wit h vomiting tonight TECHNIQUE: TA and TV. Transabdominal sonographic images of the pelvis were acquired. Transvaginal sonographic images were medically necessary to better assess the following anatomy: left adnexal lesi on Date of LMP: 05/18/2020 EXAM MEASUREMENTS: Uterus: 9.0 x 4.9 x 4.1 cm Endometrial Stripe: 0.7 cm Right Ovary: 2.6 x 1.3 x 2.1 cm Left Ovary: 6.7 x 5.0 x 5.2 cm 1. Uterus: Anteverted wnl 2. Endometrium: wnl 3. Right Ovary: wnl, only seen transabdominally 4. Left Ovary: ? lesion that appears midline TA, definitely sits within left adnexa upon TV approach . appearance of large hemorraghic cyst but was unable to achieve any blood flow within or around geraldo phery of probable left ovary. Large cyst is obscuring view of vessels versus other etiology. 5. Bilateral Adnexa: wnl 6. Posterior cul-de-sac: wnl IMPRESSION: There is a 5 x 6 cm thin-walled cystic mass in the midline pelvis and slightly to the left side. Ther e are a few internal echoes. This is a complex cyst. No free fluid. Normal uterus and endometrium. Th is large cyst appears to be the same cyst that measure 2.5 cm on previous ultrasound exam of 05/24/2020 . Therefore left ovarian torsion cannot be excluded. No evidence of right-sided ovarian torsion. We could not demonstrate arterial blood flow in the left ovary but this large cyst obscures the left ovary.
[2020-06-04] MEDS ORDERED: HYDROmorphone 1 MG/ML 1 ML SYRINGE IVP STA (00:43)
[2020-06-04] MEDS ORDERED: KETOROLAC 30 MG/ML 1 ML VIAL IVP STA (00:43)
[2020-06-04] MEDS ORDERED: cefTRIAXone IN SWFI 1,000 MG/10 ML SYRINGE IVP STA (00:48)
[2020-06-04] MEDS ORDERED: IBUPROFEN 400 MG TAB PO PRN (01:19)
[2020-06-04] MEDS ORDERED: ACETAMINOPHEN TAB 325 MG TAB PO PRN (01:19)
[2020-06-04] MEDS ORDERED: NALOXONE 0.4 MG/ML 1 ML VIAL IV PRN (01:19)
[2020-06-04] MEDS ORDERED: SUCCINYLCHOLINE CHLORIDE 100 MG/5 ML SYR IV ONE (02:04)
[2020-06-04] MEDS ORDERED: DEXAMETHASONE SOD PHOSPHATE 10 MG/ML 1 ML VIAL ONE (02:04)
[2020-06-04] MEDS ORDERED: PROPOFOL 10 MG/ML 20 ML VIAL IV ONE (02:04)
[2020-06-04] MEDS ORDERED: LIDOCAINE 1% INJ 10MG/ML (20 ML MDV) ONE (02:04)
[2020-06-04] MEDS ORDERED: ROPIVACAINE 5 MG/ML 30 ML VIAL ONE (02:04)
[2020-06-04] MEDS ORDERED: fentaNYL (PF) 50 MCG/ML 2 ML AMP ONE (02:04)
[2020-06-04] MEDS ORDERED: GLYCOPYRROLATE 0.2 MG/ML 2 ML VIAL ONE (02:04)
[2020-06-04] MEDS ORDERED: IV FLUID CONTINUATION 500 ML IV ONE (02:04)
[2020-06-04] MEDS ORDERED: NEOSTIGMINE 1 MG/ML 10 ML VIAL ONE (02:04)
[2020-06-04] MEDS ORDERED: MIDAZOLAM 2 MG/2 ML VIAL ONE (02:04)
[2020-06-04] MEDS ORDERED: ROCURONIUM BROMIDE 10 MG/ML 5 ML VIAL IV ONE (02:04)
[2020-06-04] MEDS ORDERED: ONDANSETRON 4 MG/2 ML VIAL ONE (02:04)
[2020-06-04] MEDS ORDERED: CELLULOSE,OXIDIZED 1 EACH EACH MISCELLANE ONE (02:31)
[2020-06-04] MEDS ORDERED: LACTATED RINGERS 1,000 ML IV ONE (02:42)
[2020-06-04] MEDS ORDERED: diphenhydrAMINE 50 MG/ML 1 ML VIAL IVP PRN (03:06)
[2020-06-04] MEDS ORDERED: SIMETHICONE 80 MG CHEWABLE PO PRN (03:06)
[2020-06-04] MEDS ORDERED: IBUPROFEN 600 MG TAB PO PRN (03:06)
--- NOTE | 2020-06-04 03:06 | P.OP ---
Date of Procedure: 06/04/20 Preoperative Diagnosis: 6.7 cm complex left ovarian cyst, sonographic concern for torsion Postoperative Diagnosis: Benign-appearing cyst of the left ovary, no evidence of torsion. Procedure(s) Performed: Exploratory laparotomy, left ovarian cystectomy, reconstruction of the left ovary. Anesthesia: KIRITA Surgeon: Yuridia Alex Photogrammetry Airplane Pilot #1: Samuel Valera Estimated Blood Loss (ml): 25 IV fluids (ml): 600 Urine output (ml): 30 Pathology: other (Left ovarian cyst wall) Condition: stable Disposition: PACU Operative Findings: No evidence of pelvic endometriosis or adhesions. Normal-appearing right ovary and tube. No uterine anomalies. Benign appearing fluid filled cyst of the left ovary, no evidence of torsion. Description of Procedure: Patient is brought to the operating room where general anesthetic is administered without difficulty. She's placed in the dorsal supine position. The abdomen is prepped and draped in the usual sterile fashion. The appropriate timeout was performed to assure proper patient and procedural identification. 2 g of Ancef are given. Urine hCG is negative. Delatorre catheter placed to direct drainage. A low transverse incision is made over the prior section scar. This is taken down to the subcutaneous tissue to the fascia. Fascia is isolated, scored, extended bilaterally with curved Steen scissors. Peritoneum is next identified and incised, there is no bowel or bladder involvement. Hamlin clamps are used in the left ovarian cyst is brought into the operative field. It appears thin-walled, fluid filled, and benign in nature. There is no evidence of torsion. The ovarian cortex is opened. The cyst wall is removed in its entirety and the cyst wall is sent to pathology for evaluation. Rupture of the cyst is encountered during excision procedure. 2-0 Vicryl suture is used at the base of the ovarian defect in the ovary is closed in a pursestring fashion. Excellent hemostasis is noted. The cortex is rolled inward and the reconstruction of the ovary is completed. The ovary is wrapped gently with Interceed and placed back into the pelvis. The right ovary and tube are visualized and noted to be absolutely normal. No uterine anomalies noted. No evidence of endometriosis. No evidence of adhesions. The abdomen is hemostatically intact, clean and dry. Peritoneum is allowed to close by secondary intention. Fascia is closed in a running stitch of 0 Vicryl with over ligation in the midline. Subcutaneous tissue is irrigated, noted to be clean and dry. It is reapproximated with 2-0 Vicryl in. 3-0 undyed Monocryl is used for final subcuticular skin closure. Steri-Strips and Mastisol are applied to the wound. Dr. Marcial are anesthesiologist then performed a TAP procedure to aid in postoperative analgesia. All sponge needle and enhancement counts are correct. Patient is brought back to the recovery room in very good condition with stable vital signs including blood pressure 100/69, pulse 87.
--- NOTE | 2020-06-04 03:15 | P.ANPRN ---
Procedure Note - Anesthesia - Nerve Block Performed Bilateral Transversus Abdominis Single Time Out Performed: Yes Date of Procedure: 06/04/20 Procedure Start Time: 03:00 Procedure Stop Time: 03:05 Location of Patient: OR Indication: Acute Post-Operative Pain, Analgesia, Dx/Pain Location, Requested by Surgeon Sedation Type: Awake Preparation: Sterile Prep Position: Supine Catheter: None Needle Types: Pajunk Needle Gauge: 21 Ultrasound used to visualize needle placement: Yes Ultrasound used to observe medication spread: Yes Injectate: 0.5% Ropivacaine (see comment for volume) (15cc each side with 5mg dexamethasone on each side.) Blood Aspirated: No Pain Paresthesia on Injection Noted: No Resistance on Injection: Normal Image Stored and Saved: Yes Events: Uneventful and Well Tolerated
[2020-06-04] MEDS ORDERED: HYDROmorphone 1 MG/ML 1 ML SYRINGE IM PRN (03:16)
[2020-06-04] MEDS: HYDROmorphone 1 MG/ML 1 ML SYRINGE IVP ONE ×2 (03:18→03:30)
[2020-06-04] MEDS ORDERED: diphenhydrAMINE 50 MG/ML 1 ML VIAL IVP ONE (03:21)
[2020-06-04] MEDS: KETOROLAC 30 MG/ML 1 ML VIAL IVP PRN ×3 (04:11→17:32)
[2020-06-04] MEDS: HYDROmorphone 1 MG/ML 1 ML SYRINGE IVP PRN ×6 (04:18→23:56)
[2020-06-04] MEDS: SODIUM CHLORIDE 0.9% 1,000 ML IV SCH (04:47)
[2020-06-04] MEDS: METOCLOPRAMIDE 5 MG/ML 2 ML VIAL IVP PRN (09:41)
[2020-06-04] MEDS ORDERED: ACETAMINOPHEN TAB 500 MG TAB PO PRN (15:31)
[2020-06-04] MEDS: HYDROcodone/APAP 5-325MG 1 EACH TAB PO PRN (16:33)
[2020-06-04 19:07] VITALS: RESP 16
[2020-06-05] MEDS: SODIUM CHLORIDE 0.9% 1,000 ML IV SCH (02:08)
[2020-06-05] MEDS: HYDROcodone/APAP 5-325MG 1 EACH TAB PO PRN ×2 (03:59→09:09)
--- NOTE | 2020-06-05 08:26 | P.DS ---
Providers Date of admission: 06/04/20 02:01 Expected date of discharge: 06/05/20 Attending physician: Yuridia Alex Primary care physician: Lydia Martin [place] [facility] Course: Patient was admitted through the ER with a 6 cm complex left adnexal mass and presumed torsion sonographically with no blood flow documented. SHe was taken for an exploratory lap and L ovarian cystectomy with reconstruction of the L ovary. SHe did well intraoperatively, see dictated H and P as well as operative note for details. Incision this morning is clean and dry. No rebound or guarding. Patient still complains of pain and is requesting [place] prescription. A limited prescription of ten pills is given, I am recommending Advil or Alleve to alternate with acetometophen OTC. No drivng for 2 weeks, follow up with me in 2 weeks in the office. No intercourse, no heavy lifting, incisional care reviewed. Call with any issues, difficulties or concerns. Assessment: Doing well post operatively Patient Condition at Discharge: Good Plan - Discharge Summary Discharge Rx Participant: Yes New Discharge Prescriptions: No Action Ondansetron Odt [Zofran ODT] 4 mg PO Q8HR PRN #10 tab PRN Reason: Nausea Dicyclomine [Bentyl] 40 mg PO QID PRN #60 tab PRN Reason: Diarrhea Discharge Medication List Ondansetron Odt [Zofran ODT] 4 mg PO Q8HR PRN #10 tab 05/25/20 [Rx] Dicyclomine [Bentyl] 40 mg PO QID PRN #60 tab 05/29/20 [Rx] Follow up Appointment(s)/Referral(s): Yuridia Alex MD [STAFF PHYSICIAN] - 2 Weeks Lydia Martin DO [Primary Care Provider] - As Needed Patient Instructions/Handouts: Ovarian Cyst (DC) Activity/Diet/Wound Care/Special Instructions: Patient may shower. Increase activity as tolerated. Pain medication as needed. Stool softeners as needed.
[2020-06-05] MEDS: METOCLOPRAMIDE 5 MG/ML 2 ML VIAL IVP PRN (09:09)
[2020-06-05] MEDS ORDERED: BISACODYL 5 MG TABLET.DR PO PRN (12:42)
[2020-06-05 15:37] VITALS: BP 141/90; PULSE 90; TEMP 98.6
[2020-06-05] MEDS ORDERED: ONDANSETRON 4 MG TAB PO PRN (16:01)
[2020-06-05] MEDS ORDERED: PANTOPRAZOLE 40 MG TABLET PO SCH (17:30)
--- NOTE | 2020-06-06 09:12 | P.PN ---
Subjective Progress Note Date: 06/05/20 Principal diagnosis: Nausea and vomiting, irritable bowel syndrome 24-year-old female who was recently seen on admission to the observation unit with complaints of nausea and vomiting and abdominal pain. Imaging negative for any acute intra-abdominal process at that time. Patient underwent a second computed tomography scan on 06/03/2020 her second in a 14 day period which was again negative for any acute intra-abdominal process. Patient has a known history of irritable bowel syndrome and is an extremely poor historian unclear of medication she is taking in the past including she has followed up with. She was treated with Protonix therapy and Bentyl on her last admission. The patient is seen actively forcing herself to retch and gave with no actual production of vomitus. Patient was instructed to follow-up after her last consultation in the outpatient setting for continued management and consideration for EGD but has failed to follow up. Patient has a known psychiatric history and is been treated with lithium therapy in the past and is no longer taking medications. Patient's symptoms are likely multifactorial patient would benefit from intensive follow-up with the psychiatric service, as well as GI if she is willing to be compliant with follow-up instructions which she has failed to do in the past. No acute interventional card at this time with normal laboratory and imaging studies. Extensive discussion with the patient and her sister who is bedside. Objective - Vital Signs Vital signs: Vital Signs Temp 98.6 F 06/05/20 14:14 Pulse 90 06/05/20 14:14 Resp 16 06/05/20 14:14 BP 141/90 06/05/20 14:14 Pulse Ox 100 06/05/20 14:14 Intake & Output 06/04/20 06/05/20 06/05/20 18:59 06:59 18:59 Intake Total 200 Output Total 535 550 Balance -535 -350 Intake: Oral 200 Output: Urine 535 250 Uretheral (Delatorre) 310 Emesis 300 Other: Voiding Method Indwelling Catheter Indwelling Catheter Toilet # Bowel Movements 1 - Labs CBC & Chem 7: 06/03/20 18:30 06/03/20 18:30 Labs: Microbiology - Last 24 Hours (Table) 06/03/20 18:30 Urine Culture - Final Urine,Voided 06/04/20 01:44 Blood Culture - Preliminary Blood No Growth after 24 hours
[2020-06-06 14:00] LABS: C. trachomatis,PCR Negative (Neg,Equiv); Chlamydia trachomatis Source Vagina; N. gonorrhoeae,PCR Negative (Neg,Equiv); Neisseria Source Vagina
== END 2020-06-05 16:19 | disposition home or self-care (01) | DRG 743 ==
LOC: EC 18:02 → 4SSUR 06-04 02:01
PROVIDERS: ADMIT Obstetrics & Gynecology; ATTEND Obstetrics & Gynecology
PROC: 0UB10ZZ Excision of Left Ovary, Open Approach (ICD-10-PCS; principal; 2020-06-04 01:58)
PROC: 0UQ10ZZ Repair Left Ovary, Open Approach (ICD-10-PCS; principal; 2020-06-04 01:58)
DX: N83.292 Other ovarian cyst, left side (principal); K58.9 Irritable bowel syndrome, unspecified; F41.9 Anxiety disorder, unspecified; F32.9 Major depressive disorder, single episode, unspecified; Z11.59 Encounter for screening for other viral diseases; Z88.1 Allergy status to other antibiotic agents; Z86.19 Personal history of other infectious and parasitic diseases; Z82.49 Family history of ischemic heart disease and other diseases of the circulatory system; Z82.5 Family history of asthma and other chronic lower respiratory diseases
CPT/HCPCS: 36415; 74018; 74177; 76770; 76830; 76856; 80053; 80306; 81001; 81025; 82150; 83605; 83690; 85025; 85610; 85730; 86850; 86900; 86901; 87040; 87070; 87086; 87491; 87591; 87808; 88305; 93005; 93975; 96361; 96374; 96375; 96376; 99285

== ENCOUNTER 2021-06-16 18:46 | Emergency (ER) | payer OTHER ==
[2021-06-16] MEDS ORDERED: ONDANSETRON 4 MG/2 ML VIAL IM STA (19:00)
[2021-06-16] MEDS ORDERED: METOCLOPRAMIDE 5 MG/ML 2 ML VIAL IVP STA (19:03)
[2021-06-16] MEDS ORDERED: SODIUM CHLORIDE 0.9% 1,000 ML IV STA (19:03)
[2021-06-16] MEDS ORDERED: diphenhydrAMINE 50 MG/ML 1 ML VIAL IVP STA (19:03)
[2021-06-16] MEDS ORDERED: HYDROmorphone 0.5 MG/0.5 ML SYRINGE IVP STA ×2 (19:03→20:06)
[2021-06-16 19:20] LABS: Basophils % (A) 0 %; Eosinophils # (A) 0.1 k/uL (0-0.7); Eosinophils % (A) 1 %; HCT 39.3 % (34.0-46.0); HGB 12.9 gm/dL (11.4-16.0); Lymphocytes # (A) 1.7 k/uL (1.0-4.8); Lymphocytes % (A) 18 %; MCH 26.3 pg (25.0-35.0); MCHC 32.9 g/dL (31.0-37.0); Mean Platelet Volume 7.2; Monocytes # (A) 0.4 k/uL (0-1.0); Monocytes % (A) 4 %; Neutrophils % (A) 76 %; Platelet Count 268 k/uL (150-450); RBC 4.92 m/uL (3.80-5.40); RDW 15.3 % (11.5-15.5); WBC 9.3 k/uL (3.8-10.6)
[2021-06-16 19:33] LABS: ALT 15 U/L (4-34); AST 22 U/L (14-36); African American GFR (CKD) >90 (>60 ml/min/1.73 sqM); Albumin 4.5 g/dL (3.5-5.0); Alkaline Phosphatase 82 U/L (38-126); Anion Gap 13 mmol/L; Blood Urea Nitrogen 7 mg/dL (7-17); Calcium 9.8 mg/dL (8.4-10.2); Carbon Dioxide 21 mmol/L (22-30); Chloride 106 mmol/L (98-107); Glucose 121 mg/dL (74-99); Lipase 45 U/L (23-300); Non-African American GFR(CKD) >90 (>60 ml/min/1.73 sqM); Potassium 3.9 mmol/L (3.5-5.1); Sodium 140 mmol/L (137-145); Total Bilirubin 0.9 mg/dL (0.2-1.3); Total Protein 7.3 g/dL (6.3-8.2)
--- NOTE | 2021-06-16 19:48 | ED ---
Nausea/Vomiting/Diarrhea HPI - General Chief complaint: Nausea/Vomiting/Diarrhea Stated complaint: abd pain, nausea/vomiting Time Seen by Provider: 06/16/21 18:59 Source: patient Mode of arrival: ambulatory Limitations: no limitations - History of Present Illness Initial comments: 25-year-old female with history of gastritis, sphincter of robina dysfunction and IBS presents to the emergency department with chief complaint of abdominal pain nausea vomiting. Patient reports this feels like her typical abdominal pain that occurs throughout the year. Reports nausea with multiple episodes of nonbilious and nonbloody vomiting over the last 3 days. Reports right upper quadrant pain which is typical for her whenever she gets attacks like this. States she is not able to control her vomiting. She denies any associated diarrhea or constipation. Denies any abdominal bloating. Denies any urinary or vaginal symptoms. Denies any possibility of . - Related Data Previous Rx's Medication Instructions Recorded Ondansetron Odt [Zofran ODT] 4 mg PO Q8HR PRN #10 tab 05/25/20 Dicyclomine [Bentyl] 40 mg PO QID PRN #60 tab 05/29/20 Pantoprazole [Protonix] 40 mg PO AC-BID #60 tablet. 06/05/20 Dicyclomine [Bentyl] 20 mg PO TID #30 tablet 06/16/21 Ondansetron Odt [Zofran Odt] 4 mg PO Q8HR PRN #20 tab 06/16/21 Allergies Allergy/AdvReac Type Severity Reaction Status Date / Time amoxicillin Allergy Unknown Verified 06/03/20 23:36 morphine Allergy Unknown Verified 06/16/21 18:49 Review of Systems ROS Statement: Those systems with pertinent positive or pertinent negative responses have been documented in the HPI. ROS Other: All systems not noted in ROS Statement are negative. Past Medical History Additional Past Medical History / Comment(s): IBS, gastritis, hernia History of Any Multi-Drug Resistant Organisms: C-DIFF Date of last positivie culture/infection: 2016 MDRO Source:: antibotics Past Surgical History: Adenoidectomy, Section, Tonsillectomy Additional Past Surgical History / Comment(s): Ureter tube surgery Past Anesthesia/Blood Transfusion Reactions: No Reported Reaction Past Psychological History: Anxiety, Depression Smoking Status: Never smoker Past Alcohol Use History: Occasional Past Drug Use History: Marijuana - Past Family History Mother Family Medical History: Asthma, Hypertension General Exam Limitations: no limitations General appearance: alert, in no apparent distress, obese Head exam: Present: atraumatic, normocephalic, normal inspection Eye exam: Present: normal appearance, PERRL, EOMI Pupils: Present: normal accommodation ENT exam: Present: normal exam, normal oropharynx, mucous membranes moist Neck exam: Present: normal inspection, full ROM. Absent: tenderness Respiratory exam: Present: normal lung sounds bilaterally. Absent: respiratory distress, wheezes, rales Cardiovascular Exam: Present: regular rate, normal rhythm, normal heart sounds. Absent: systolic murmur GI/Abdominal exam: Present: soft, tenderness (Right upper quadrant tenderness). Absent: distended, guarding, rebound, rigid Extremities exam: Present: normal inspection, full ROM, normal capillary refill. Absent: tenderness Back exam: Present: normal inspection, full ROM. Absent: tenderness, CVA tenderness (R), CVA tenderness (L) Neurological exam: Present: alert, oriented X3 Psychiatric exam: Present: normal affect, normal mood Skin exam: Present: warm, dry, intact, normal color Course Vital Signs 06/16/21 06/16/21 18:47 19:49 Temperature 98.3 F Pulse Rate 83 63 Respiratory 22 18 Rate Blood Pressure 125/72 O2 Sat by Pulse 97 95 Oximetry Medical Decision Making - Medical Decision Making 25-year-old female with history of gastritis, sphincter of robina dysfunction and IBS presents to the emergency department with chief complaint of abdominal pain nausea vomiting. On physical examination, patient has some right upper quadrant tenderness which is typical to her. Patient was dry heaving and had 2 episodes of vomiting while in the ED. Patient was initially given IV fluids, analgesia and antibiotics. Reevaluation, she reports improvement in the pain but the nausea still persistent. She still didn't vomit. I gave her additional antiemetics which she improved. She was also given Bentyl. Laboratory work is unremarkable. Urine did show +3 ketones likely secondary to dehydration from the continuous nausea vomiting. I offered overnight observation, she declined. I will prescribe the patient Zofran and Bentyl. Strict return parameters were thoroughly discussed physician is understandable. Case discussed with physician. - Lab Data Result diagrams: 06/16/21 19:12 06/16/21 19:12 Lab Results 06/16/21 06/16/21 06/16/21 Range/Units 19:12 19:12 20:28 WBC 9.3 (3.8-10.6) k/uL RBC 4.92 (3.80-5.40) m/uL Hgb 12.9 (11.4-16.0) gm/dL Hct 39.3 (34.0-46.0) % MCV 80.0 (80.0-100.0) fL MCH 26.3 (25.0-35.0) pg MCHC 32.9 (31.0-37.0) g/dL RDW 15.3 (11.5-15.5) % Plt Count 268 (150-450) k/uL MPV 7.2 Neutrophils % 76 % Lymphocytes % 18 % Monocytes % 4 % Eosinophils % 1 % Basophils % 0 % Neutrophils # 7.0 (1.3-7.7) k/uL Lymphocytes # 1.7 (1.0-4.8) k/uL Monocytes # 0.4 (0-1.0) k/uL Eosinophils # 0.1 (0-0.7) k/uL Basophils # 0.0 (0-0.2) k/uL Sodium 140 (137-145) mmol/L Potassium 3.9 (3.5-5.1) mmol/L Chloride 106 (98-107) mmol/L Carbon Dioxide 21 L (22-30) mmol/L Anion Gap 13 mmol/L BUN 7 (7-17) mg/dL Creatinine 0.74 (0.52-1.04) mg/dL Est GFR (CKD-EPI)AfAm >90 (>60 ml/min/1.73 sqM) Est GFR (CKD-EPI)NonAf >90 (>60 ml/min/1.73 sqM) Glucose 121 H (74-99) mg/dL Calcium 9.8 (8.4-10.2) mg/dL Total Bilirubin 0.9 (0.2-1.3) mg/dL AST 22 (14-36) U/L ALT 15 (4-34) U/L Alkaline Phosphatase 82 (38-126) U/L Total Protein 7.3 (6.3-8.2) g/dL Albumin 4.5 (3.5-5.0) g/dL Lipase 45 (23-300) U/L Urine Color Yellow Urine Appearance Clear (Clear) Urine pH 8.5 H (5.0-8.0) Ur Specific [place] 1.017 (1.001-1.035) Urine Protein Trace H (Negative) Urine Glucose (UA) Negative (Negative) Urine Ketones 3+ H (Negative) Urine Blood Trace H (Negative) Urine Nitrite Negative (Negative) Urine Bilirubin Negative (Negative) Urine Urobilinogen <2.0 (<2.0) mg/dL Ur Leukocyte Esterase Negative (Negative) Urine RBC 20 H (0-5) /hpf Urine WBC 1 (0-5) /hpf Ur Squamous Epith Cells 1 (0-4) /hpf Urine Mucus Rare H (None) /hpf Disposition Clinical Impression: Abdominal pain, Nausea & vomiting Disposition: HOME SELF-CARE Condition: Stable Instructions (If sedation given, give patient instructions): Acute Nausea and Vomiting (ED), Abdominal Pain (ED) Additional Instructions: Take prescribed medication as directed. Follow up with a GI specialist. Return to emergency department if symptoms worsen. Prescriptions: Dicyclomine [Bentyl] 20 mg PO TID #30 tablet Ondansetron Odt [Zofran Odt] 4 mg PO Q8HR PRN #20 tab PRN Reason: Nausea Is patient prescribed a controlled substance at d/c from ED?: No Referrals: Juan R Merchant MD [Primary Care Provider] - 1-2 days Time of Disposition: 20:17
[2021-06-16 19:50] VITALS: RESP 18
--- NOTE | 2021-06-16 19:51 | XR ---
EXAMINATION TYPE: XR KUB DATE OF EXAM: 06/16/2021 COMPARISON: 06/03/2020 HISTORY: Abdominal pain TECHNIQUE: 2 views FINDINGS: 2 views upright were obtained. There is no sign of intestinal obstruction or pneumoperitone um. Fecal pattern is normal. There are clips from cholecystectomy. There is no evidence of a mass. [place] structures are intact. IMPRESSION: Nonacute abdomen. No adverse change.
[2021-06-16] MEDS ORDERED: DICYCLOMINE 10 MG/ML 2 ML AMP IM STA (19:58)
[2021-06-16] MEDS ORDERED: ONDANSETRON 4 MG/2 ML VIAL IVP STA (19:58)
[2021-06-16 20:47] LABS: Appearance,Urine Clear (Clear); Bilirubin,Urine Negative (Negative); Blood,Urine Trace (Negative); Color,Urine Yellow; Glucose,Urine (UA) Negative (Negative); Ketones,Urine 3+ (Negative); Leukocyte Esterase,Urine Negative (Negative); Mucus,Urine Rare /hpf; Nitrite,Urine Negative (Negative); PH, Urine 8.5 (5.0-8.0); Protein,Urine Trace (Negative); RBC,Urine 20 /hpf (0-5); Specific Gravity,Urine 1.017 (1.001-1.035); Squamous Epithelial Cell,Urine 1 /hpf (0-4); Urobilinogen,Urine <2.0 mg/dL (<2.0); WBC,Urine 1 /hpf (0-5)
[2021-06-16 21:36] VITALS: BP 123/62; PULSE 55; TEMP 98.6
== END 2021-06-16 21:45 | disposition home or self-care (01) ==
LOC: EC 18:46
DX: R10.11 Right upper quadrant pain (principal); R19.7 Diarrhea, unspecified; R11.2 Nausea with vomiting, unspecified; Z88.5 Allergy status to narcotic agent; Z88.0 Allergy status to penicillin
CPT/HCPCS: 99284; 96374; 96375; 96376; 96372; 96361; 36415; 80053; 83690; 85025; 81001; 74018; J1200; J0500; J2765; J2405; J1170

== ENCOUNTER 2023-09-10 18:31 | Emergency (ER) | payer OTHER ==
--- NOTE | 2023-09-10 19:09 | ED ---
Abdominal Pain HPI - General Stated Complaint: lower abdo cramping and spotting Time Seen by Provider: 09/10/23 19:08 Source: RN notes reviewed - History of Present Illness Initial Comments: Patient is a 27 year A1 female at 14 weeks who presents to the emergency department for abdominal pain. It started today. Patient has intense lower abdominal cramping and had one episode of vaginal bleeding, no clots. Patient felt nauseous she has had trouble holding food or liquid down her entire . She does not have an OB currently states she lost her insurance but has followed with Dr. Pimentel in the past. She denies fever. - Related Data Previous Rx's Medication Instructions Recorded Ondansetron Odt [Zofran ODT] 4 mg PO Q8HR PRN #10 tab 05/25/20 Dicyclomine [Bentyl] 40 mg PO QID PRN #60 tab 05/29/20 Pantoprazole [Protonix] 40 mg PO AC-BID #60 tablet. 06/05/20 Dicyclomine [Bentyl] 20 mg PO TID #30 tablet 06/16/21 Ondansetron Odt [Zofran Odt] 4 mg PO Q8HR PRN #20 tab 06/16/21 Allergies Allergy/AdvReac Type Severity Reaction Status Date / Time amoxicillin Allergy Unknown Verified 09/10/23 19:19 morphine Allergy Unknown Verified 09/10/23 19:19 Review of Systems ROS Statement: Those systems with pertinent positive or pertinent negative responses have been documented in the HPI. ROS Other: All systems not noted in ROS Statement are negative. Past Medical History Additional Past Medical History / Comment(s): IBS, gastritis, hernia History of Any Multi-Drug Resistant Organisms: C-DIFF Date of last positivie culture/infection: 2016 MDRO Source:: antibotics Past Surgical History: Adenoidectomy, Section, Tonsillectomy Additional Past Surgical History / Comment(s): Ureter tube surgery Past Anesthesia/Blood Transfusion Reactions: No Reported Reaction Past Psychological History: Anxiety, Depression Smoking Status: Never smoker Past Alcohol Use History: Occasional Past Drug Use History: Marijuana - Past Family History Mother Family Medical History: Asthma, Hypertension General Exam - General Exam Comments Initial Comments: Visual Physical Exam Vital signs reviewed General: Well-appearing, nontoxic, no acute distress. Head: Normocephalic, atraumatic Eyes: PERRLA, EOMI ENT: Airway patent Chest: Nonlabored breathing Skin: No visual rash, normal skin tone Neuro: Alert and oriented 3 Musculoskeletal: No gross abnormalities Course Vital Signs 09/10/23 19:19 Temperature 97.9 F Pulse Rate 89 Respiratory 18 Rate Blood Pressure 134/76 O2 Sat by Pulse 98 Oximetry Medical Decision Making - Medical Decision Making I performed the QuickNote portion of this chart - Marii Edward PA-C - Lab Data Result diagrams: 09/10/23 19:48 09/10/23 19:48 Lab Results 09/10/23 09/10/23 09/10/23 Range/Units 19:48 19:48 20:30 WBC 9.5 (3.8-10.6) k/uL RBC 4.72 (3.80-5.40) m/uL Hgb 12.8 (11.4-16.0) gm/dL Hct 38.5 (34.0-46.0) % MCV 81.5 (80.0-100.0) fL MCH 27.2 (25.0-35.0) pg MCHC 33.3 (31.0-37.0) g/dL RDW 15.6 H (11.5-15.5) % Plt Count 198 (150-450) k/uL MPV 7.6 Neutrophils % 68 % Lymphocytes % 25 % Monocytes % 4 % Eosinophils % 2 % Basophils % 0 % Neutrophils # 6.5 (1.3-7.7) k/uL Lymphocytes # 2.4 (1.0-4.8) k/uL Monocytes # 0.4 (0-1.0) k/uL Eosinophils # 0.2 (0-0.7) k/uL Basophils # 0.0 (0-0.2) k/uL Sodium 134 L (137-145) mmol/L Potassium 4.2 (3.5-5.1) mmol/L Chloride 104 (98-107) mmol/L Carbon Dioxide 19 L (22-30) mmol/L Anion Gap 11 mmol/L BUN 11 (7-17) mg/dL Creatinine 0.46 L (0.52-1.04) mg/dL Est GFR (CKD-EPI)AfAm >90 (>60 ml/min/1.73 sqM) Est GFR (CKD-EPI)NonAf >90 (>60 ml/min/1.73 sqM) Glucose 92 (74-99) mg/dL Calcium 9.3 (8.4-10.2) mg/dL Total Bilirubin 0.4 (0.2-1.3) mg/dL AST 22 (14-36) U/L ALT 30 (4-34) U/L Alkaline Phosphatase 51 (38-126) U/L Total Protein 7.0 (6.3-8.2) g/dL Albumin 3.9 (3.5-5.0) g/dL Lipase 111 (23-300) U/L HCG, Quant 68660.6 mIU/mL Urine Color Yellow Urine Appearance Clear (Clear) Urine pH 5.0 (5.0-8.0) Ur Specific [place] 1.029 (1.001-1.035) Urine Protein Trace H (Negative) Urine Glucose (UA) Negative (Negative) Urine Ketones Negative (Negative) Urine Blood Negative (Negative) Urine Nitrite Negative (Negative) Urine Bilirubin Negative (Negative) Urine Urobilinogen <2.0 (<2.0) mg/dL Ur Leukocyte Esterase Negative (Negative) Blood Type Blood Type Recheck Bld Type Recheck Status Antibody Screen Spec Expiration Date 09/10/23 Range/Units 22:15 WBC (3.8-10.6) k/uL RBC (3.80-5.40) m/uL Hgb (11.4-16.0) gm/dL Hct (34.0-46.0) % MCV (80.0-100.0) fL MCH (25.0-35.0) pg MCHC (31.0-37.0) g/dL RDW (11.5-15.5) % Plt Count (150-450) k/uL MPV Neutrophils % % Lymphocytes % % Monocytes % % Eosinophils % % Basophils % % Neutrophils # (1.3-7.7) k/uL Lymphocytes # (1.0-4.8) k/uL Monocytes # (0-1.0) k/uL Eosinophils # (0-0.7) k/uL Basophils # (0-0.2) k/uL Sodium (137-145) mmol/L Potassium (3.5-5.1) mmol/L Chloride (98-107) mmol/L Carbon Dioxide (22-30) mmol/L Anion Gap mmol/L BUN (7-17) mg/dL Creatinine (0.52-1.04) mg/dL Est GFR (CKD-EPI)AfAm (>60 ml/min/1.73 sqM) Est GFR (CKD-EPI)NonAf (>60 ml/min/1.73 sqM) Glucose (74-99) mg/dL Calcium (8.4-10.2) mg/dL Total Bilirubin (0.2-1.3) mg/dL AST (14-36) U/L ALT (4-34) U/L Alkaline Phosphatase (38-126) U/L Total Protein (6.3-8.2) g/dL Albumin (3.5-5.0) g/dL Lipase (23-300) U/L HCG, Quant mIU/mL Urine Color Urine Appearance (Clear) Urine pH (5.0-8.0) Ur Specific [place] (1.001-1.035) Urine Protein (Negative) Urine Glucose (UA) (Negative) Urine Ketones (Negative) Urine Blood (Negative) Urine Nitrite (Negative) Urine Bilirubin (Negative) Urine Urobilinogen (<2.0) mg/dL Ur Leukocyte Esterase (Negative) Blood Type O Positive Blood Type Recheck O Pos Bld Type Recheck Status No Antibody Screen NEGATIVE Spec Expiration Date 09/13/20232314 Disposition Clinical Impression: Threatened Disposition: HOME SELF-CARE Is patient prescribed a controlled substance at d/c from ED?: No Referrals: Juan R Merchant MD [Primary Care Provider] - 1-2 days
[2023-09-10 19:25] VITALS: BP 134/76; PULSE 89; RESP 18; TEMP 97.9
[2023-09-10 20:15] LABS: Basophils % (A) 0 %; Eosinophils # (A) 0.2 k/uL (0-0.7); Eosinophils % (A) 2 %; HCT 38.5 % (34.0-46.0); HGB 12.8 gm/dL (11.4-16.0); Lymphocytes # (A) 2.4 k/uL (1.0-4.8); Lymphocytes % (A) 25 %; MCH 27.2 pg (25.0-35.0); MCHC 33.3 g/dL (31.0-37.0); MCV 81.5 fL (80.0-100.0); Mean Platelet Volume 7.6; Monocytes # (A) 0.4 k/uL (0-1.0); Monocytes % (A) 4 %; Neutrophils # (A) 6.5 k/uL (1.3-7.7); Neutrophils % (A) 68 %; Platelet Count 198 k/uL (150-450); RBC 4.72 m/uL (3.80-5.40); RDW 15.6 % (11.5-15.5); WBC 9.5 k/uL (3.8-10.6)
[2023-09-10 20:30] LABS: ALT 30 U/L (4-34); AST 22 U/L (14-36); African American GFR (CKD) >90 (>60 ml/min/1.73 sqM); Albumin 3.9 g/dL (3.5-5.0); Alkaline Phosphatase 51 U/L (38-126); Anion Gap 11 mmol/L; Blood Urea Nitrogen 11 mg/dL (7-17); Calcium 9.3 mg/dL (8.4-10.2); Carbon Dioxide 19 mmol/L (22-30); Chloride 104 mmol/L (98-107); Glucose 92 mg/dL (74-99); Lipase 111 U/L (23-300); Non-African American GFR(CKD) >90 (>60 ml/min/1.73 sqM); Potassium 4.2 mmol/L (3.5-5.1); Sodium 134 mmol/L (137-145); Total Bilirubin 0.4 mg/dL (0.2-1.3)
[2023-09-10 20:49] LABS: Appearance,Urine Clear (Clear); Bilirubin,Urine Negative (Negative); Blood,Urine Negative (Negative); Color,Urine Yellow; Glucose,Urine (UA) Negative (Negative); Ketones,Urine Negative (Negative); Leukocyte Esterase,Urine Negative (Negative); Nitrite,Urine Negative (Negative); Protein,Urine Trace (Negative); Specific Gravity,Urine 1.029 (1.001-1.035); Urobilinogen,Urine <2.0 mg/dL (<2.0)
--- NOTE | 2023-09-10 21:04 | US ---
EXAMINATION TYPE: US OB >= 14 wk fetus DATE OF EXAM: 09/10/2023 COMPARISON: 06/03/2020 CLINICAL INDICATION: Female, 27 years old with history of pain vag bleeding; cramping x 3 weeks. Spot ting today TECHNIQUE: Transabdominal (TA) GESTATIONAL AGE / DATING Physician Established: (15 weeks/3 days) EDC: 02/29/24 Dates by First Scan: No previous this is first scan Dates by Current Scan: (15 weeks/6 days) EDC: 02/26/24 Beta HCG (if available): N/A SURVEY IUP: Single PLACENTA: Anterior PREVIA: Marginal BRYCE: 13.1 cm Normal CERVICAL LENGTH (transabdominal: norm > 3.0cm): 3.1 cm BIOMETRY PRESENTATION: Vertex LIE: Longitudinal BPD: 3.06 cm 15 weeks / 5 days HC: 11.6 cm 15 weeks / 5 days AC: 9.87 cm 15 weeks / 6 days FL: 1.88 cm 15 weeks / 4 days ESTIMATED WEIGHT IN GRAMS: 133.6 grams ESTIMATED WEIGHT IN LBS/OZ: 0 lbs. 5 oz. WEIGHT PERCENTAGE BASED ON ESTABLISHED DATES: 62% HC/AC: 1.18 Normal FL/AC: 19.01 Normal HEART RATE: 144 bpm RHYTHM: Normal Placenta does appear to be low lying/marginal IMPRESSION: 1. Single live intrauterine gestation with ultrasound age of 15 weeks 6 days. 2. Low-lying/marginal placenta.
[2023-09-10 21:54] LABS: HCG,Quantitative Serum 70882.6 mIU/mL
[2023-09-10] MEDS ORDERED: ACETAMINOPHEN TAB 325 MG TAB PO STA (22:54)
== END 2023-09-10 23:00 | disposition home or self-care (01) ==
LOC: EC 18:31
DX: O20.0 Threatened abortion (principal); O99.322 Drug use complicating pregnancy, second trimester; F12.90 Cannabis use, unspecified, uncomplicated; Z88.5 Allergy status to narcotic agent; Z88.0 Allergy status to penicillin; Z86.59 Personal history of other mental and behavioral disorders; Z3A.15 15 weeks gestation of pregnancy
CPT/HCPCS: 36415; 76805; 80053; 81003; 83690; 84702; 85025; 86850; 86900; 86901; 99284

== ENCOUNTER → 2024-01-26 | Outpatient (CLI) | payer OTHER ==
--- NOTE | 2024-01-27 09:07 | US ---
EXAMINATION TYPE: US OB >= 14 wk fetus DATE OF EXAM: 01/26/2024 COMPARISON: None CLINICAL INDICATION: Female, 28 years old with history of O36.62X0 MATERNAL CARE FOR EXCESS WENCESLAO WTH, SE; growth TECHNIQUE: Transabdominal (TA) GESTATIONAL AGE / DATING Physician Established: (35 weeks/1 days) EDC: 02/29/2024 Dates by LMP: LMP unknown Dates by First Scan: outside imaging Dates by Current Scan: (35 weeks/5 days) EDC: 02/25/24 Beta HCG (if available): Not available at this time SURVEY IUP: Single PLACENTA: Fundal PREVIA: No Previa BRYCE: 12.5 cm Normal CERVICAL LENGTH (transabdominal: norm > 3.0cm): obscured by shadowing BIOMETRY PRESENTATION: Breech LIE: Longitudinal BPD: 8.5 cm 34 weeks / 2 days HC: 33.7 cm 38 weeks / 4 days AC: 33.1 cm 37 weeks / 0 days FL: 6.8 cm 34 weeks / 6 days ESTIMATED WEIGHT IN GRAMS: 2901 grams ESTIMATED WEIGHT IN LBS/OZ: 6 lbs. 6 oz. WEIGHT PERCENTAGE BASED ON ESTABLISHED DATES: 79.4% HC/AC: 1.02 Normal FL/AC: 20.48 Normal HEART RATE: 140 bpm RHYTHM: Normal IMPRESSION: Single viable intrauterine .
== END | disposition home or self-care (01) ==
LOC: RADUSWWP 10:21
PROVIDERS: ATTEND Obstetrics & Gynecology
DX: O36.63X1 Maternal care for excessive fetal growth, third trimester, fetus 1 (principal); Z3A.36 36 weeks gestation of pregnancy
CPT/HCPCS: 76805

== ENCOUNTER 2024-02-23 09:59 | Inpatient (IN) | payer OTHER ==
[2024-02-23] MEDS ORDERED: TRANEXAMIC 1,000 MG/100ML-NACL 1,000 MG in EMPTY BAG 1 BAG IV PRN (10:26)
[2024-02-23] MEDS ORDERED: OXYTOCIN 10 UNIT/ML 1 ML VIAL IM PRN (10:26)
[2024-02-23] MEDS ORDERED: CARBOPROST TROMETHAMINE 250 MCG/ML 1 ML AMP IM PRN (10:26)
[2024-02-23] MEDS ORDERED: miSOPROStoL 200 MCG TAB PO PRN (10:26)
[2024-02-23] MEDS ORDERED: METHYLERGONOVINE 0.2 MG/ML 1 ML AMP IM PRN (10:26)
[2024-02-23 11:28] LABS: Basophils % (A) 0 %; Eosinophils # (A) 0.1 k/uL (0-0.7); Eosinophils % (A) 1 %; HCT 34.4 % (34.0-46.0); HGB 10.8 gm/dL (11.4-16.0); Hypochromasia Slight; Lymphocytes # (A) 1.9 k/uL (1.0-4.8); Lymphocytes % (A) 20 %; MCH 25.9 pg (25.0-35.0); MCHC 31.4 g/dL (31.0-37.0); MCV 82.6 fL (80.0-100.0); Mean Platelet Volume 7.8; Monocytes # (A) 0.5 k/uL (0-1.0); Monocytes % (A) 5 %; Neutrophils % (A) 72 %; Platelet Count 244 k/uL (150-450); RBC 4.17 m/uL (3.80-5.40); WBC 9.7 k/uL (3.8-10.6)
[2024-02-23] MEDS: CITRIC ACID-SODIUM CITRATE 15 ML CUP PO ONE (11:29)
[2024-02-23] MEDS ORDERED: MORPHINE SULFATE (PF) 0.3 MG/0.3 ML SYR ONE (12:05)
[2024-02-23] MEDS ORDERED: ONDANSETRON 4 MG/2 ML VIAL ONE (12:05)
[2024-02-23] MEDS ORDERED: KETOROLAC 15 MG/ML 1 ML VIAL ONE (12:05)
[2024-02-23] MEDS ORDERED: fentaNYL (PF) 50 MCG/ML 2 ML AMP ONE (12:05)
[2024-02-23] MEDS ORDERED: OXYTOCIN 30 UNITS/500 ML NS BAG IV ONE (12:05)
--- NOTE | 2024-02-23 12:08 | P.HPOB ---
History of Present Illness H&P Date: 02/23/24 Chief Complaint: RLTCS with TL 28 year old presents at 39 weeks for Repeat low transverse with tubal ligation Review of Systems All systems: negative Constitutional: Denies chills, Denies fever Eyes: denies blurred vision, denies pain Ears, nose, mouth and throat: Denies headache, Denies sore throat Cardiovascular: Denies chest pain, Denies shortness of breath Respiratory: Denies cough Gastrointestinal: Denies abdominal pain, Denies diarrhea, Denies nausea, Denies vomiting Genitourinary: Denies dysuria, Denies hematuria Musculoskeletal: Denies myalgias Integumentary: Denies pruritus, Denies rash Neurological: Denies numbness, Denies weakness Psychiatric: Denies anxiety, Denies depression Endocrine: Denies fatigue, Denies weight change 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 Organisms: C-DIFF Date of last positivie culture/infection: 2016 MDRO Source:: antibotics Past Surgical History: Adenoidectomy, Section, Cholecystectomy, Tonsillectomy Additional Past Surgical History / Comment(s): Ureter tube surgery, ovarian cyst removals Past Anesthesia/Blood Transfusion Reactions: No Reported Reaction Past Psychological History: Anxiety, Depression Additional Psychological History / Comment(s): previously treated with lithium Smoking Status: Never smoker Past Alcohol Use History: None Reported Past Drug Use History: Marijuana Additional Drug Use History / Comment(s): prior to Pt states stopped using 1 year ago. - Past Family History Mother Family Medical History: Asthma, Hypertension Medications and Allergies Home Medications Medication Instructions Recorded Confirmed Type Vit No.180/Iron/Folic 1 tab PO DAILY 02/16/24 02/23/24 History [ Plus Vitamin-Mineral] Allergies Allergy/AdvReac Type Severity Reaction Status Date / Time amoxicillin Allergy Unknown Verified 02/23/24 10:25 morphine Allergy Unknown Verified 02/23/24 10:25 Exam Osteopathic Statement: *. No significant issues noted on an osteopathic structural exam other than those noted in the History and Physical/Consult. Vital Signs Temp Pulse Resp BP Pulse Ox 02/23/24 10:23 97.4 F L 85 18 126/81 97 Intake and Output 03/02/23/24 02/23/24 22:59 06:59 14:59 Other: Weight 111.13 kg Heart: Regular rate and rhythm Lungs: Clear to auscultation bilaterally Abdomen: Soft, nontender Extremities: Negative Homans sign Results Result Diagrams: 02/23/24 11:06 Abnormal Lab Results - Last 24 Hours (Table) 02/23/24 Range/Units 11:06 Hgb 10.8 L (11.4-16.0) gm/dL Assessment and Plan (1) S/P section Current Visit: No Status: Acute Code(s): Z98.891 - HISTORY OF UTERINE SCAR FROM PREVIOUS SURGERY SNOMED Code(s): 957443882 (2) 39 weeks gestation of Current Visit: Yes Status: Acute Code(s): Z3A.39 - 39 WEEKS GESTATION OF SNOMED Code(s): 15044620 (3) Family planning Current Visit: Yes Status: Acute Code(s): Z30.09 - ENCOUNTER FOR OTH GENERAL CNSL AND ADVICE ON CONTRACEPTION SNOMED Code(s): 577817242 Plan: 1. RLTCS with TL
[2024-02-23] MEDS ORDERED: NALOXONE 0.4 MG/ML 1 ML VIAL IV PRN (12:51)
[2024-02-23] MEDS ORDERED: diphenhydrAMINE 50 MG CAP PO PRN (12:51)
[2024-02-23] MEDS ORDERED: ONDANSETRON 4 MG/2 ML VIAL IVP PRN (12:51)
[2024-02-23] MEDS ORDERED: LANOLIN CREAM 1 GM TUBE TOPICAL PRN (12:51)
[2024-02-23] MEDS ORDERED: SIMETHICONE 80 MG CHEWABLE PO PRN (12:51)
[2024-02-23] MEDS ORDERED: METOCLOPRAMIDE 5 MG/ML 2 ML VIAL IVP PRN (12:51)
[2024-02-23] MEDS ORDERED: diphenhydrAMINE 25 MG CAP PO PRN (12:51)
[2024-02-23] MEDS ORDERED: ZOLPIDEM 5 MG TAB PO PRN (12:51)
[2024-02-23] MEDS ORDERED: diphenhydrAMINE 50 MG/ML 1 ML VIAL IVP PRN ×2 (12:51)
--- NOTE | 2024-02-23 12:51 | P.OP ---
Date of Procedure: 02/23/24 Preoperative Diagnosis: 1. at 39 weeks 1 day 2. previous 3. family planning Postoperative Diagnosis: same Procedure(s) Performed: Repeat low transverse with tubal ligation Anesthesia: spinal Surgeon: Crystal Merrill Pattern Checker #1: Tosha Pruitt Estimated Blood Loss (ml): 300 IV fluids (ml): 600 Urine output (ml): 150 Pathology: other (segments of bilateral fallopian tubes) Condition: stable Disposition: floor Operative Findings: normal uterus, tubes, ovaries. Viable male, Apgars 9, 9, weight 8 pounds Description of Procedure: Patient was taken to the operating room where spinal anesthesia was found be adequate. She was prepped and draped in normal sterile fashion in dorsal supine position with a leftward tilt. Pfannenstiel skin incision was made the scalpel and carried through to the underlying layer of fascia with the scalpel. Fascia was incised in midline and carried bilaterally with the Steen scissors. The superior aspect of the fascial incision was grasped with Angela clamps elevated and the underlying rectus muscles dissected off with the Steen's. Attention was then turned to inferior aspect of same incision which in a similar fashion was grasped tented up and the underlying rectus muscles dissected off with the Steen's. The rectus muscles were the midline and the peritoneum was identified tented up and entered sharply with the scalpel. The incision was extended superiorly and inferiorly with good visualization of the bladder. The bladder blade was inserted and the vesicouterine peritoneum was incised the Metzenbaums then carried bilaterally and bladder flap created digitally. A low transverse incision was then made on the uterus with the scalpel. This was carried bilaterally and digital manner. Infant's head delivered atraumatically, nose and mouth bulb suctioned, cord clamped and cut, handed off to waiting nurses. Apgars 9,9, weight 8 lbs. Placenta delivered manually, intact with three-vessel cord. The uterus is exteriorized and cleared of all clots and debris. The uterine incision was closed with 0 Vicryl in a running locked fashion. Second layer of the same sutures used in imbricating fashion to obtain excellent hemostasis. Both ovaries and tubes appeared normal. the right fallopian tube was grasped with hemostat and a window was made in the mesosalpinx with the Bovie. The fallopian tube was doubly ligated a segment was removed and the pedicles were cauterized with the Bovie. The left fallopian fallopian tube was grasped with hemostat and a window was made in the mesosalpinx with the Bovie. The fallopian tube was doubly ligated and a segment was removed and the pedicles were cauterized with the Bovie. The uterus was placed back into the abdomen. The peritoneum was reapproximated using 2-0 Vicryl in a running fashion. The muscles were reapproximated using 2-0 Vicryl in interrupted fashion. The fascia was reapproximated using 0 Vicryl in a running fashion. The subcutaneous tissues closed with 3-0 Vicryl running fashion. The skin was closed josue. Patient tolerated the procedure well, sponge and instrument counts were correct times 2 and she was taken to the recovery room in stable condition.
[2024-02-23] MEDS ORDERED: OXYTOCIN 30 UNITS/500 ML NS 30 UNIT in SALINE 1 500ML.BAG IV SCH (13:00)
[2024-02-23] MEDS: ACETAMINOPHEN TAB 500 MG TAB PO SCH (15:26)
[2024-02-23] MEDS: KETOROLAC 15 MG/ML 1 ML VIAL IVP SCH (17:47)
[2024-02-23] MEDS: LACTATED RINGERS 1,000 ML IV SCH (17:50)
[2024-02-23] MEDS: IBUPROFEN 600 MG TAB PO SCH (19:49)
[2024-02-23] MEDS: SENNOSIDES-DOCUSATE SODIUM 1 EACH TAB PO SCH (21:02)
[2024-02-24 08:58] LABS: Basophils % (A) 0 %; Eosinophils # (A) 0.1 k/uL (0-0.7); Eosinophils % (A) 1 %; HCT 31.8 % (34.0-46.0); Hypochromasia Slight; Lymphocytes # (A) 1.6 k/uL (1.0-4.8); Lymphocytes % (A) 15 %; MCH 26.2 pg (25.0-35.0); MCHC 31.5 g/dL (31.0-37.0); MCV 83.1 fL (80.0-100.0); Monocytes # (A) 0.4 k/uL (0-1.0); Monocytes % (A) 4 %; Neutrophils # (A) 8.4 k/uL (1.3-7.7); Neutrophils % (A) 79 %; Platelet Count 197 k/uL (150-450); RBC 3.83 m/uL (3.80-5.40); WBC 10.6 k/uL (3.8-10.6)
--- NOTE | 2024-02-24 11:08 | P.PN ---
Progress Note - Text 02/24/24 622am 38-year-old female status post with spinal Duramorph. Patient seen and evaluated for postop pain control she has a VAS of 5 at rest. No complaints of nausea vomiting she has mild pruritus subside soon
--- NOTE | 2024-02-24 17:46 | P.PNOBGPC ---
Subjective - Subjective Principal diagnosis: Status post repeat low transverse with tubal ligation postop day Interval history: Patient seen and examined. Denies nausea, vomiting, chest pain, shortness of breath or calf pain. Patient reports: Reports appetite normal, Reports voiding normally, Reports pain well controlled, Reports ambulating normally : doing well Objective - Vital Signs Latest vital signs: Vital Signs Temp Pulse Resp BP Pulse Ox 02/24/24 16:00 98.5 F 78 17 115/77 97 02/24/24 12:16 98.6 F 74 17 107/68 97 02/24/24 09:00 79 104/67 02/24/24 08:00 18 02/24/24 07:57 98 F 66 16 94/60 97 02/24/24 07:54 98 F 66 16 94/60 97 02/24/24 00:00 98.0 F 73 16 107/71 97 02/23/24 20:30 97.3 F L 78 16 107/69 98 Intake and Output 02/24/24 02/24/24 02/24/24 06:59 14:59 22:59 Intake Total 100 Output Total 250 250 Balance -150 -250 Intake: Oral 100 Output: Urine 250 250 Uretheral (Delatorre) 250 Other: # Voids 1 - Exam Lungs: bilateral: normal Chest: Normal S1, Normal S2 Extremities: Present: normal Abdomen: Present: normal appearance, soft. Absent: distention, tenderness Incision: Present: normal, dry, intact Uterus: Present: normal, firm - Labs Labs: Abnormal Lab Results - Last 24 Hours (Table) 02/24/24 Range/Units 08:35 Hgb 10.0 L (11.4-16.0) gm/dL Hct 31.8 L (34.0-46.0) % Neutrophils # 8.4 H (1.3-7.7) k/uL Assessment and Plan (1) S/P section Current Visit: No Status: Acute Code(s): Z98.891 - HISTORY OF UTERINE SCAR FROM PREVIOUS SURGERY SNOMED Code(s): 338249228 (2) 39 weeks gestation of Current Visit: Yes Status: Resolved Code(s): Z3A.39 - 39 WEEKS GESTATION OF SNOMED Code(s): 13252572 (3) Family planning Current Visit: Yes Status: Resolved Code(s): Z30.09 - ENCOUNTER FOR OTH GENERAL CNSL AND ADVICE ON CONTRACEPTION SNOMED Code(s): 970204706 (4) Status post tubal ligation at time of delivery, current hosp Current Visit: Yes Status: Acute Code(s): O80 - ENCOUNTER FOR FULL-TERM UNCOMPLICATED DELIVERY; Z30.2 - ENCOUNTER FOR STERILIZATION SNOMED Code(s): 47041101751748 Plan: 1. Increase ambulation 2. Pain meds
--- NOTE | 2024-02-25 08:06 | P.PNOBGPC ---
Subjective - Subjective Principal diagnosis: S/P RLTCS with TL pod #2 Interval history: Patient seen and examined. complaining of more pain today. she did ambulate quite a bit yesterday and is very sore around her incision. She has had a bowel movement and is tolerating reg diet. Patient reports: Reports appetite normal, Reports voiding normally, Reports ambulating normally : doing well Objective - Vital Signs Latest vital signs: Vital Signs Temp Pulse Resp BP Pulse Ox 02/25/24 07:35 98.2 F 84 15 123/74 98 02/25/24 00:00 98.2 F 82 16 112/75 96 02/24/24 16:00 98.5 F 78 17 115/77 97 02/24/24 12:16 98.6 F 74 17 107/68 97 02/24/24 09:00 79 104/67 - Exam Lungs: bilateral: normal Chest: Normal S1, Normal S2 Extremities: Present: normal Abdomen: Present: normal appearance, soft. Absent: distention, tenderness Incision: Present: normal, dry, intact Uterus: Present: normal, firm - Labs Labs: Abnormal Lab Results - Last 24 Hours (Table) 02/24/24 Range/Units 08:35 Hgb 10.0 L (11.4-16.0) gm/dL Hct 31.8 L (34.0-46.0) % Neutrophils # 8.4 H (1.3-7.7) k/uL Assessment and Plan (1) S/P section Current Visit: No Status: Acute Code(s): Z98.891 - HISTORY OF UTERINE SCAR FROM PREVIOUS SURGERY SNOMED Code(s): 667738293 (2) 39 weeks gestation of Current Visit: Yes Status: Resolved Code(s): Z3A.39 - 39 WEEKS GESTATION OF SNOMED Code(s): 01305762 (3) Family planning Current Visit: Yes Status: Resolved Code(s): Z30.09 - ENCOUNTER FOR OTH GENERAL CNSL AND ADVICE ON CONTRACEPTION SNOMED Code(s): 764616755 (4) Status post tubal ligation at time of delivery, current hosp Current Visit: Yes Status: Acute Code(s): O80 - ENCOUNTER FOR FULL-TERM UNCOMPLICATED DELIVERY; Z30.2 - ENCOUNTER FOR STERILIZATION SNOMED Code(s): 56846223338546 Plan: 1. po pain meds 2. cont post op care
[2024-02-25 12:35] VITALS: RESP 16
--- NOTE | 2024-02-26 12:28 | P.DS ---
Providers Date of admission: 02/23/24 09:59 Expected date of discharge: 02/26/24 Attending physician: Crystal Merrill Primary care physician: Stated None - Discharge Diagnosis(es) (1) S/P section Current Visit: No Status: Acute (2) 39 weeks gestation of Current Visit: Yes Status: Resolved (3) Family planning Current Visit: Yes Status: Resolved (4) Status post tubal ligation at time of delivery, current hosp Current Visit: Yes Status: Acute Hospital Course: Patient presented for repeat low transverse with tubal ligation. She underwent this procedure without complication. She'll be discharged home day #3 in stable condition to follow-up with me in one week. Plan - Discharge Summary Discharge Rx Participant: No New Discharge Prescriptions: No Action Vit No.180/Iron/Folic [ Plus Vitamin-Mineral] 1 tab PO DAILY Discharge Medication List Vit No.180/Iron/Folic [ Plus Vitamin-Mineral] 1 tab PO DAILY 02/16/24 [History] Follow up Appointment(s)/Referral(s): Crystal Merrill DO [Doctor of Osteopathic Medicine] - 1 Week Discharge Disposition: HOME SELF-CARE
[2024-02-26 16:20] VITALS: BP 129/79; PULSE 86; TEMP 98
== END 2024-02-26 18:00 | disposition home or self-care (01) | DRG 539 ==
LOC: 4FBP 09:59
PROVIDERS: ADMIT Obstetrics & Gynecology; ATTEND Obstetrics & Gynecology
PROC: 10D00Z1 Extraction of Products of Conception, Low, Open Approach (ICD-10-PCS; principal; 2024-02-23 12:00)
PROC: 0UB70ZZ Excision of Bilateral Fallopian Tubes, Open Approach (ICD-10-PCS; principal; 2024-02-23 12:00)
DX: O34.211 Maternal care for low transverse scar from previous cesarean delivery (principal); O99.344 Other mental disorders complicating childbirth; F41.9 Anxiety disorder, unspecified; F32.A Depression, unspecified; Z30.2 Encounter for sterilization; Z37.0 Single live birth; Z3A.39 39 weeks gestation of pregnancy
CPT/HCPCS: 85025; 86850; 86900; 86901; 88302

== ENCOUNTER 2024-08-23 17:02 | Emergency (ER) | payer MEDICARE ==
[2024-08-23 17:15] VITALS: TEMP 98.6
[2024-08-23 17:48] LABS: Appearance,Urine Cloudy (Clear); Bacteria,Urine Many /hpf; Bilirubin,Urine Negative (Negative); Blood,Urine Negative (Negative); Color,Urine Yellow; Glucose,Urine (UA) Negative (Negative); Ketones,Urine 1+ (Negative); Leukocyte Esterase,Urine Large (Negative); Mucus,Urine Many /hpf; Nitrite,Urine Positive (Negative); PH, Urine 5.5 (5.0-8.0); Protein,Urine 1+ (Negative); RBC,Urine 3 /hpf (0-5); Squamous Epithelial Cell,Urine 2 /hpf (0-4); Urobilinogen,Urine <2.0 mg/dL (<2.0); WBC,Urine 29 /hpf (0-5)
--- NOTE | 2024-08-23 18:21 | ED ---
Female Urogenital HPI - General Source: patient, RN notes reviewed Mode of arrival: ambulatory Limitations: no limitations - History of Present Illness Last Menstrual Period: 08/02/24 <Kya Traylor - Last Filed: 08/23/24 18:20> <Misael Dumont - Last Filed: 08/24/24 01:21> - General Chief complaint: Urogenital Stated complaint: vomiting Time Seen by Provider: 08/23/24 18:20 - History of Present Illness Initial comments: Quick note: 28-year-old female presented to ER with a chief complaint of nausea and vomiting. Patient also was complaining left lower quadrant/suprapubic abdominal pain. She does report painful urination. Denies any hematic emesis, fevers, chills, nausea or vomiting. She does report recent lightheadedness or dizziness. (Kya Traylor) 28-year-old female presenting with chief complaint of nausea and vomiting. Patient reports that she has had some suprapubic pain that has now also become some left-sided lower abdominal pain and flank pain. She also reports pain with urination. No blood in emesis. No known fevers. She does admit to some fatigue and generalized weakness. No chest pain or difficulty breathing. (Misael Dumont) - Related Data Home Medications Medication Instructions Recorded Confirmed Vit No.180/Iron/Folic 1 tab PO DAILY 02/16/24 02/23/24 [ Plus Vitamin-Mineral] Previous Rx's Medication Instructions Recorded Cephalexin [Keflex] 500 mg PO Q12HR 14 Days #28 cap 08/23/24 Ondansetron Odt [Zofran Odt] 4 mg PO Q8HR PRN #20 tab 08/23/24 Allergies Allergy/AdvReac Type Severity Reaction Status Date / Time amoxicillin Allergy Unknown Verified 02/23/24 10:25 morphine Allergy Unknown Verified 02/23/24 10:25 Review of Systems ROS Other: All systems not noted in ROS Statement are negative. <Kya Traylor - Last Filed: 08/23/24 18:20> ROS Other: All systems not noted in ROS Statement are negative. <Misael Dumont - Last Filed: 08/24/24 01:21> ROS Statement: Those systems with pertinent positive or pertinent negative responses have been documented in the HPI. 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 Organisms: C-DIFF Date of last positivie culture/infection: 2017 MDRO Source:: antibotics Past Surgical History: Adenoidectomy, Section, Cholecystectomy, Tonsillectomy Additional Past Surgical History / Comment(s): Ureter tube surgery, ovarian cyst removals Past Anesthesia/Blood Transfusion Reactions: No Reported Reaction Past Psychological History: Anxiety, Depression Smoking Status: Never smoker Past Alcohol Use History: None Reported Past Drug Use History: Marijuana - Past Family History Mother Family Medical History: Asthma, Hypertension <Kya Traylor - Last Filed: 08/23/24 18:20> General Exam Limitations: no limitations <Kya Traylor - Last Filed: 08/23/24 18:20> Limitations: no limitations General appearance: alert, in no apparent distress Head exam: Present: atraumatic, normocephalic, normal inspection Eye exam: Present: normal appearance, EOMI Neck exam: Present: normal inspection. Absent: meningismus Respiratory exam: Present: normal lung sounds bilaterally. Absent: respiratory distress, wheezes, rales, rhonchi, stridor Cardiovascular Exam: Present: regular rate, normal rhythm, normal heart sounds. Absent: systolic murmur, diastolic murmur, rubs, gallop, clicks GI/Abdominal exam: Present: soft. Absent: distended, tenderness, guarding, rebound, rigid Back exam: Present: CVA tenderness (L) Neurological exam: Present: alert, oriented X3, CN II-XII intact Psychiatric exam: Present: normal affect, normal mood Skin exam: Present: warm, dry, intact, normal color. Absent: rash <Misael Dumont - Last Filed: 08/24/24 01:21> - General Exam Comments Initial Comments: Visual Physical Exam Vital signs reviewed General: Well-appearing, nontoxic, no acute distress. Head: Normocephalic, atraumatic Eyes: PERRLA, EOMI ENT: Airway patent Chest: Nonlabored breathing Skin: No visual rash, normal skin tone Neuro: Alert and oriented 3 Musculoskeletal: No gross abnormalities (Kya Traylor) Course Vital Signs 08/23/24 08/23/24 08/23/24 17:13 20:37 21:46 Temperature 98.6 F Pulse Rate 76 62 81 Respiratory 16 18 Rate Blood Pressure 133/82 150/92 O2 Sat by Pulse 98 99 97 Oximetry Medical Decision Making <Kya Traylor - Last Filed: 08/23/24 18:20> - Lab Data Result diagrams: 08/23/24 19:23 08/23/24 19:23 <Misael Dumont - Last Filed: 08/24/24 01:21> - Medical Decision Making I performed the quick note portion of this chart. Electronically signed by Kya Traylor PA-C (Kya Traylor) Was pt. sent in by a medical professional or institution ([facility], [employer], urgent care, hospital, or fpc...) When possible be specific @ -No Did you speak to anyone other than the patient for history (EMS, parent, family, police, friend...)? What history was obtained from this source @ -No Did you review nursing and triage notes (agree or disagree)? Why? @ -I reviewed and agree with nursing and triage notes Were old charts reviewed (outside hosp., previous admission, EMS record, old EKG, old radiological studies, urgent care reports/EKG's, fpc records)? Report findings @ -No old charts were reviewed Differential Diagnosis (chest pain, altered mental status, abdominal pain women, abdominal pain men, vaginal bleeding, weakness, fever, dyspnea, syncope, headache, dizziness, GI bleed, back pain, seizure, CVA, palpatations, mental health, musculoskeletal)? @ -[facility] Differential Abdominal Pain Women: Appendicitis, Cholecystitis, diverticulosis, ischemic bowel, pancreatitis, hepatitis, UTI, gastroenteritis, AAA, incarcerated hernia, bowel obstruction, constipation, inflammatory bowel, hepatitis, peptic ulcer disease, splenic infarction, perforated viscus, vulvitis, ovarian torsion, PID, kidney stone, placenta abruption... This is not meant to be an all-inclusive list EKG interpreted by me (3pts min.). @ -As above X-rays interpreted by me (1pt min.). @ -None done CT interpreted by me (1pt min.). @ -None done U/S interpreted by me (1pt. min.). @ -None done What testing was considered but not performed or refused? (CT, X-rays, U/S, labs)? Why? @ -None What meds were considered but not given or refused? Why? @ -None Did you discuss the management of the patient with other professionals (professionals i.e. , PA, [employer], lab, RT, psych nurse, social scientist, manager supply chain, teacher, bsa officer, geriatric case manager)? Give summary @ -No Was smoking cessation discussed for >3mins.? @ -No Was critical care preformed (if so, how long)? @ -No Were there social determinants of health that impacted care today? How? (Homelessness, low income, unemployed, alcoholism, drug addiction, tr ansportation, low edu. Level, literacy, decrease access to med. care, fdc, rehab)? @ -No Was there de-escalation of care discussed even if they declined (Discuss DNR or withdrawal of care, Hospice)? DNR status @ -No What co-morbidities impacted this encounter? (DM, HTN, Smoking, COPD, CAD, Cancer, CVA, ARF, Chemo, Hep., AIDS, mental health diagnosis, sleep apnea, morbid obesity)? @ -None Was patient admitted / discharged? Hospital course, mention meds given and route, prescriptions, significant lab abnormalities, going to OR and other pertinent info. @ -28-year-old female presenting with chief complaint of nausea vomiting and suprapubic pain. She is now also having some left-sided flank pain. Workup initiated by triage. Patient is later examined by myself and does have some slight positive left-sided CVA tenderness. No leukocytosis or anemia. Urine shows signs of UTI positive nitrates and large leukocytes. Urine sent for culture. Negative hCG. Patient is treated with 1 g of Rocephin here in the ER. She will be sent home on Keflex 500 mg twice a day for 14 days. She is educated on today's findings and treatment plan. Discharged. Follow-up with PCP. Report back to ER with any new or worsening symptoms. Discussed return parameters and answered all questions. Patient conveyed verbal understanding and agreed to the plan. I discussed this case in detail with my attending Dr. Kilgore Undiagnosed new problem with uncertain prognosis? @ -No Drug Therapy requiring intensive monitoring for toxicity (Heparin, Nitro, Insulin, Cardizem)? @ -No Were any procedures done? @ -No Diagnosis/symptom? @ -UTI Acute, or Chronic, or Acute on Chronic? @ -Acute Uncomplicated (without systemic symptoms) or Complicated (systemic symptoms)? @ -Uncomplicated Side effects of treatment? @ -No Exacerbation, Progression, or Severe Exacerbation? @ -No Poses a threat to life or bodily function? How? (Chest pain, USA, PA, pneumonia, PE, COPD, DKA, ARF, appy, cholecystitis, CVA, Diverticulitis, Homicidal, Suicidal, threat to staff... and all critical care pts) @ -Potential if not properly treated (Misael Dumont) - Lab Data Lab Results 08/23/24 08/23/24 08/23/24 Range/Units 17:16 17:17 19:23 WBC 10.2 (3.8-10.6) k/uL RBC 5.64 H (3.80-5.40) m/uL Hgb 13.3 (11.4-16.0) gm/dL Hct 41.8 (34.0-46.0) % MCV 74.1 L (80.0-100.0) fL MCH 23.5 L (25.0-35.0) pg MCHC 31.7 (31.0-37.0) g/dL RDW 16.0 H (11.5-15.5) % Plt Count 345 (150-450) k/uL MPV 7.3 Neutrophils % 59 % Lymphocytes % 31 % Monocytes % 6 % Eosinophils % 2 % Basophils % 1 % Neutrophils # 6.0 (1.3-7.7) k/uL Lymphocytes # 3.2 (1.0-4.8) k/uL Monocytes # 0.6 (0-1.0) k/uL Eosinophils # 0.2 (0-0.7) k/uL Basophils # 0.1 (0-0.2) k/uL Hypochromasia Slight Anisocytosis Slight Microcytosis Slight Sodium (137-145) mmol/L Potassium (3.5-5.1) mmol/L Chloride (98-107) mmol/L Carbon Dioxide (22-30) mmol/L Anion Gap mmol/L BUN (7-17) mg/dL Creatinine (0.52-1.04) mg/dL Est GFR (CKD-EPI)AfAm (>60 ml/min/1.73 sqM) Est GFR (CKD-EPI)NonAf (>60 ml/min/1.73 sqM) Glucose (74-99) mg/dL Calcium (8.4-10.2) mg/dL Total Bilirubin (0.2-1.3) mg/dL AST (14-36) U/L ALT (4-34) U/L Alkaline Phosphatase (38-126) U/L Total Protein (6.3-8.2) g/dL Albumin (3.5-5.0) g/dL Urine Color Yellow Urine Appearance Cloudy H (Clear) Urine pH 5.5 (5.0-8.0) Ur Specific [place] 1.030 (1.001-1.035) Urine Protein 1+ H (Negative) Urine Glucose (UA) Negative (Negative) Urine Ketones 1+ H (Negative) Urine Blood Negative (Negative) Urine Nitrite Positive H (Negative) Urine Bilirubin Negative (Negative) Urine Urobilinogen <2.0 (<2.0) mg/dL Ur Leukocyte Esterase Large H (Negative) Urine RBC 3 (0-5) /hpf Urine WBC 29 H (0-5) /hpf Ur Squamous Epith Cells 2 (0-4) /hpf Urine Bacteria Many H (None) /hpf Urine Mucus Many H (None) /hpf Urine HCG, Qual Not Detected (Not Detectd) 08/23/24 Range/Units 19:23 WBC (3.8-10.6) k/uL RBC (3.80-5.40) m/uL Hgb (11.4-16.0) gm/dL Hct (34.0-46.0) % MCV (80.0-100.0) fL MCH (25.0-35.0) pg MCHC (31.0-37.0) g/dL RDW (11.5-15.5) % Plt Count (150-450) k/uL MPV Neutrophils % % Lymphocytes % % Monocytes % % Eosinophils % % Basophils % % Neutrophils # (1.3-7.7) k/uL Lymphocytes # (1.0-4.8) k/uL Monocytes # (0-1.0) k/uL Eosinophils # (0-0.7) k/uL Basophils # (0-0.2) k/uL Hypochromasia Anisocytosis Microcytosis Sodium 141 (137-145) mmol/L Potassium 4.2 (3.5-5.1) mmol/L Chloride 108 H (98-107) mmol/L Carbon Dioxide 24 (22-30) mmol/L Anion Gap 9 mmol/L BUN 10 (7-17) mg/dL Creatinine 0.87 (0.52-1.04) mg/dL Est GFR (CKD-EPI)AfAm >90 (>60 ml/min/1.73 sqM) Est GFR (CKD-EPI)NonAf 90 (>60 ml/min/1.73 sqM) Glucose 94 (74-99) mg/dL Calcium 10.7 H (8.4-10.2) mg/dL Total Bilirubin 1.2 (0.2-1.3) mg/dL AST 32 (14-36) U/L ALT 25 (4-34) U/L Alkaline Phosphatase 86 (38-126) U/L Total Protein 8.3 H (6.3-8.2) g/dL Albumin 5.1 H (3.5-5.0) g/dL Urine Color Urine Appearance (Clear) Urine pH (5.0-8.0) Ur Specific [place] (1.001-1.035) Urine Protein (Negative) Urine Glucose (UA) (Negative) Urine Ketones (Negative) Urine Blood (Negative) Urine Nitrite (Negative) Urine Bilirubin (Negative) Urine Urobilinogen (<2.0) mg/dL Ur Leukocyte Esterase (Negative) Urine RBC (0-5) /hpf Urine WBC (0-5) /hpf Ur Squamous Epith Cells (0-4) /hpf Urine Bacteria (None) /hpf Urine Mucus (None) /hpf Urine HCG, Qual (Not Detectd) Disposition <Kya Traylor - Last Filed: 08/23/24 18:20> Is patient prescribed a controlled substance at d/c from ED?: No Time of Disposition: 21:39 <Misael Dumont - Last Filed: 08/24/24 01:21> Clinical Impression: Urinary tract infection Disposition: HOME SELF-CARE Condition: Good Instructions (If sedation given, give patient instructions): Urinary Tract Infection in Women (ED) Additional Instructions: Follow-up with your PCP. Report back to ER with any new or worsening symptoms. Take medication as prescribed. Prescriptions: Cephalexin [Keflex] 500 mg PO Q12HR 14 Days #28 cap Ondansetron Odt [Zofran Odt] 4 mg PO Q8HR PRN #20 tab PRN Reason: Nausea Referrals: Juan R Merchant MD [Primary Care Provider] - 1-2 days
[2024-08-23 19:29] LABS: Anisocytosis Slight; Basophils # (A) 0.1 k/uL (0-0.2); Basophils % (A) 1 %; Eosinophils # (A) 0.2 k/uL (0-0.7); Eosinophils % (A) 2 %; HCT 41.8 % (34.0-46.0); HGB 13.3 gm/dL (11.4-16.0); Hypochromasia Slight; Lymphocytes # (A) 3.2 k/uL (1.0-4.8); Lymphocytes % (A) 31 %; MCH 23.5 pg (25.0-35.0); MCHC 31.7 g/dL (31.0-37.0); MCV 74.1 fL (80.0-100.0); Mean Platelet Volume 7.3; Microcytosis Slight; Monocytes # (A) 0.6 k/uL (0-1.0); Monocytes % (A) 6 %; Neutrophils % (A) 59 %; Platelet Count 345 k/uL (150-450); RBC 5.64 m/uL (3.80-5.40); WBC 10.2 k/uL (3.8-10.6)
[2024-08-23 19:43] LABS: ALT 25 U/L (4-34); AST 32 U/L (14-36); African American GFR (CKD) >90 (>60 ml/min/1.73 sqM); Albumin 5.1 g/dL (3.5-5.0); Alkaline Phosphatase 86 U/L (38-126); Anion Gap 9 mmol/L; Blood Urea Nitrogen 10 mg/dL (7-17); Calcium 10.7 mg/dL (8.4-10.2); Carbon Dioxide 24 mmol/L (22-30); Chloride 108 mmol/L (98-107); Glucose 94 mg/dL (74-99); Non-African American GFR(CKD) 90 (>60 ml/min/1.73 sqM); Potassium 4.2 mmol/L (3.5-5.1); Sodium 141 mmol/L (137-145); Total Bilirubin 1.2 mg/dL (0.2-1.3); Total Protein 8.3 g/dL (6.3-8.2)
[2024-08-23] MEDS: cefTRIAXone IN SWFI 1,000 MG/10 ML SYRINGE IVP STA (20:52)
[2024-08-23] MEDS: ONDANSETRON 4 MG/2 ML VIAL IVP STA (20:53)
[2024-08-23] MEDS: KETOROLAC 15 MG/ML 1 ML VIAL IVP STA (20:53)
[2024-08-23] MEDS: SODIUM CHLORIDE 0.9% 1,000 ML IV ONE (20:53)
[2024-08-23 21:48] VITALS: BP 150/92; PULSE 81; RESP 18
== END 2024-08-23 21:47 | disposition home or self-care (01) ==
LOC: EC 17:02
CPT/HCPCS: 36415; 80053; 81001; 81025; 85025; 87077; 87086; 87186; 96361; 96374; 96375; 99284